=== PATIENT | male | born 1955 | race Caucasian/White ===

== ENCOUNTER 2019-12-04 07:49 | Outpatient (REF) | payer OTHER, SELFPAY | END 2019-12-04 07:50 | disposition home or self-care (01) | LOC: HO.LAB 07:49 | PROVIDERS: PCP Internal Medicine; Visit Provider Internal Medicine | DX: Z20.828 Contact with and (suspected) exposure to other viral communicable diseases (principal) | CPT/HCPCS: 87635 ==

== ENCOUNTER 2020-01-10 08:04 | Outpatient (REF) | payer OTHER, SELFPAY ==
[2020-01-10 11:37] LABS: Cholesterol 129 mg/dL; Glucose Fasting 110 mg/dL (60-99); HDL Cholesterol 38 mg/dL; LDL Cholesterol Calculated 78 mg/dl; Triglycerides 67 mg/dL
[2020-01-10 11:49] LABS: Estimated Average Glucose 131 mg/dL; Hemoglobin A1c % 6.2 %
[2020-01-10 11:50] LABS: Creatinine Urine 91.06 mg/dL; Microalbum/Creatinine Ratio Ur 6.5 ug/mg cr
== END 2020-01-10 08:05 | disposition home or self-care (01) ==
LOC: HO.HMGCLDS 08:04
PROVIDERS: PCP Internal Medicine; Visit Provider Internal Medicine
DX: Z20.828 Contact with and (suspected) exposure to other viral communicable diseases (principal); E11.9 Type 2 diabetes mellitus without complications
CPT/HCPCS: 80061; 82043; 82947; 83036; C9803; U0003

== ENCOUNTER → 2020-03-07 08:24 | Outpatient (BNVA) | payer OTHER, SELFPAY | PROVIDERS: PCP Internal Medicine; Visit Provider Orthopaedic Surgery | DX: G56.01 Carpal tunnel syndrome, right upper limb (principal) | CPT/HCPCS: 99202 ==

== ENCOUNTER 2020-03-16 08:27 | Day surgery (SDC) | payer OTHER, SELFPAY ==
[2020-03-15 09:42] VITALS: BMI 31.5
[2020-03-16] MEDS: Lidocaine HCl 2%/Epi 1:100,000 20 ML VIAL 10 ML INFILTRATI (09:16)
[2020-03-16 11:11] VITALS: BP 100/61; PULSE 56; RESP 18; TEMP 36.4; O2SAT 99
--- NOTE | 2020-03-16 11:15 | W.PM.OPN ---
Operative Note Operative Note Date of Service: 03/16/20 Narrative: Preop diagnosis: 1. Right Carpal tunnel syndrome Postop diagnosis: 1. Right Carpal tunnel syndrome Procedure: 1. Right Carpal tunnel release Surgeon: Leslie Simms MD Anesthesia: local block using 1% lidocaine with epinephrine Findings: Thickened transverse carpal ligament. EBL: Less than 5 mL Specimens: None Complications: None Disposition: Brought to recovery room in stable condition Plan: Follow-up for 7-10 days for wound check and suture removal Indications: The patient is 64 years old, with right carpal tunnel syndrome that has been unresponsive to nonoperative management. The risks and benefits of operative treatment including but not limited to risk of damage to blood vessels, nerves, tendons, infection, persistent pain, persistent symptoms, or possible need for additional surgery were discussed with the patient and the patient wishes to proceed with surgery. Procedure: Once consent was obtained a local block was performed using a combination of 1% lidocaine with epinephrine. The patient was then brought back to the operating suite and placed on the operative table in supine position. A tourniquet was applied to the proximal aspect of the right upper extremity and the limb was prepped and draped in a standard surgical fashion. Once assured that we had a good block, a 1.5 cm longitudinal incision was made centered over the right carpal tunnel. The incision was made through the skin to the subcutaneous tissues using a #15 blade. Dissection was made down to the level of the transverse carpal ligament with care being taken to protect the palmar cutaneous nerve. Once the transverse carpal ligament was clearly visualized, a longitudinal incision was made in the transverse carpal ligament 1st using a #15 blade, then using tenotomy scissors under direct visualization. Care was taken to look for and protect the motor branch of the median nerve when seen in this area. Once satisfied with our carpal tunnel release the wound was copiously irrigated with normal saline and hemostasis was obtained with a brief period of local pressure. The skin edges were reapproximated with some 5.0 nylon suture material and a sterile dressing was applied. The patient appears to have tolerated the procedure well and with no complications. All digits were well vascularized at the conclusion of the case.
[2020-03-16 11:41] VITALS: BP 116/68; PULSE 55; RESP 18; TEMP 36.1; O2SAT 99
--- NOTE | 2020-03-16 12:32 | MHC.SHP ---
Pre-Procedural Eval Section B Chief Complaint: carpal tunnel Allergies: Allergies Allergy/AdvReac Type Severity Reaction Status Date / Time succinylcholine Allergy Severe JAW Verified 03/07/20 08:41 [SUCCINYLCHOLINE] RIGIDITY lisinopril [LISINOPRIL] Allergy Intermediate COUGH Verified 03/07/20 08:41 Plan I have reviewed the history and physical and performed a pertinent physical examination on my patient. No changes have occurred unless specified.
== END 2020-03-16 12:25 | disposition home or self-care (01) ==
PROVIDERS: PCP Internal Medicine; Visit Provider Orthopaedic Surgery
PROC: (CPT 64721; principal; 2020-03-16 09:50)
DX: G56.01 Carpal tunnel syndrome, right upper limb (principal); I10 Essential (primary) hypertension; E11.9 Type 2 diabetes mellitus without complications; E02 Subclinical iodine-deficiency hypothyroidism; E78.5 Hyperlipidemia, unspecified; E66.9 Obesity, unspecified; Z68.31 Body mass index [BMI] 31.0-31.9, adult; Z79.84 Long term (current) use of oral hypoglycemic drugs; Z79.899 Other long term (current) drug therapy; Z88.8 Allergy status to other drugs, medicaments and biological substances; Z87.891 Personal history of nicotine dependence
CPT/HCPCS: 64721

== ENCOUNTER 2020-03-20 06:14 | Outpatient (REF) | payer OTHER, SELFPAY ==
[2020-03-20 11:10] LABS: MANUAL DIFF FLAG NO
[2020-03-20 11:16] LABS: Basophils Percent Auto 0.3 % (0-2); Eosinophils Absolute Auto 0.2 X10*3/uL (0.0-0.4); Eosinophils Percent Auto 2.1 % (0-4); Hematocrit 42.5 % (42-52); Hemoglobin 13.9 g/dl (14.0-18.0); Imm Gran Abs Auto 0.02 X10*3/uL (0.00-0.03); Imm Gran Pct Auto 0.3 % (0.0-0.4); Lymphocytes Absolute Auto 2.2 X10*3/uL (1.2-4.9); Mean Corpuscular HGB Conc 32.7 g/dl (31.0-36.0); Mean Corpuscular Hemoglobin 28.5 pg (27.0-33.0); Mean Corpuscular Volume 87.3 fL (80-98); Mean Platelet Volume 9.9 fL (9.4-12.4); Monocytes Absolute Auto 0.5 X10*3/uL (0.1-1.2); Monocytes Percent Auto 7.6 % (2-11); Neutrophils Absolute Auto 4.1 X10*3/uL (2.0-8.3); Neutrophils Percent Auto 58.7 % (45-73); Platelet Count 212 X10*3/uL (160-400); Red Blood Count 4.87 X10*6/uL (4.60-5.80); Red Cell Distribution Width 13.8 % (11.0-16.0); White Blood Count 7.1 X10*3/uL (4.8-10.8)
[2020-03-20 12:07] LABS: Alanine Aminotransferase 24 U/L (0-40); Albumin Level 4.5 g/dL (3.5-5.0); Alkaline Phosphatase 52 U/L (39-117); Anion Gap 15 (12-20); Aspartate Amino Transferase 24 U/L (5-37); Bilirubin Total 0.6 mg/dL (0.0-1.0); Blood Urea Nitrogen 23 mg/dL (9-16); Carbon Dioxide 26 mmol/L (22-29); Chloride 104 mmol/L (96-108); Cholesterol 143 mg/dL; Estimated Glomerular Filt Rate > 60; Glucose Fasting 97 mg/dL (60-99); HDL Cholesterol 42 mg/dL; LDL Cholesterol Calculated 83 mg/dl; Potassium 4.5 mmol/L (3.3-5.1); Sodium 140 mmol/L (135-145); Total Protein 7.1 g/dL (6.5-8.0); Triglycerides 92 mg/dL
[2020-03-20 12:13] LABS: Creatinine Urine 94.26 mg/dL; Microalbum/Creatinine Ratio Ur 6.3 ug/mg cr
[2020-03-20 12:31] LABS: Free T4 (Free Thyroxine) 0.92 ng/dL (0.71-1.85); Thyroid Stimulating Hormone 5.01 uIU/mL (0.32-4.0)
[2020-03-21 11:12] LABS: LDL Cholesterol Direct 90 mg/dL (<100)
== END 2020-03-20 06:15 | disposition home or self-care (01) ==
LOC: HO.HMGCLDS 06:14
PROVIDERS: PCP Internal Medicine; Visit Provider Internal Medicine Endocrinology, Diabetes & Metabolism
DX: E11.9 Type 2 diabetes mellitus without complications (principal); E03.9 Hypothyroidism, unspecified
CPT/HCPCS: 36415; 80053; 80061; 82043; 83721; 84439; 84443; 85025

== ENCOUNTER 2020-03-23 08:13 | Outpatient (REF) | payer OTHER, SELFPAY ==
[2020-03-23 12:06] LABS: Free T4 (Free Thyroxine) 0.86 ng/dL (0.71-1.85)
[2020-03-23 12:28] LABS: Vitamin B12 375 pg/mL (200-900)
== END 2020-03-23 08:14 | disposition home or self-care (01) ==
LOC: HO.HMGCLDS 08:13
PROVIDERS: PCP Internal Medicine; Visit Provider Internal Medicine Endocrinology, Diabetes & Metabolism
DX: E11.9 Type 2 diabetes mellitus without complications (principal); E03.8 Other specified hypothyroidism; E78.5 Hyperlipidemia, unspecified; I10 Essential (primary) hypertension; E66.9 Obesity, unspecified; Z79.84 Long term (current) use of oral hypoglycemic drugs; Z79.899 Other long term (current) drug therapy
CPT/HCPCS: 36415; 82607; 82947; 84439; 99212

== ENCOUNTER → 2020-03-27 14:22 | Outpatient (BNVA) | payer OTHER, SELFPAY | PROVIDERS: PCP Internal Medicine; Visit Provider Orthopaedic Surgery | DX: G56.01 Carpal tunnel syndrome, right upper limb (principal) | CPT/HCPCS: 99212 ==

== ENCOUNTER 2020-05-18 07:36 | Outpatient (REF) | payer OTHER, SELFPAY ==
[2020-05-18 11:53] LABS: Estimated Average Glucose 128 mg/dL; Hemoglobin A1c % 6.1 %
[2020-05-18 12:01] LABS: Cholesterol 142 mg/dL; HDL Cholesterol 35 mg/dL; LDL Cholesterol Calculated 91 mg/dl; Triglycerides 83 mg/dL
[2020-05-18 12:13] LABS: Thyroid Stimulating Hormone 3.88 uIU/mL (0.32-4.0)
== END 2020-05-18 07:37 | disposition home or self-care (01) ==
LOC: HO.HMGCLDS 07:36
PROVIDERS: PCP Internal Medicine; Visit Provider Internal Medicine
DX: E11.9 Type 2 diabetes mellitus without complications (principal); E03.9 Hypothyroidism, unspecified
CPT/HCPCS: 36415; 80061; 83036; 84443

== ENCOUNTER 2020-10-06 08:57 | Outpatient (REF) | payer OTHER, SELFPAY ==
[2020-10-06 11:52] LABS: Estimated Average Glucose 157 mg/dL; Hemoglobin A1c % 7.1 %
[2020-10-06 12:04] LABS: Cholesterol 156 mg/dL; Glucose Fasting 126 mg/dL (60-99); HDL Cholesterol 38 mg/dL; LDL Cholesterol Calculated 100 mg/dl; Triglycerides 90 mg/dL
== END 2020-10-06 08:58 | disposition home or self-care (01) ==
LOC: HO.HMGCLDS 08:57
PROVIDERS: PCP Internal Medicine; Visit Provider Internal Medicine
DX: E11.65 Type 2 diabetes mellitus with hyperglycemia (principal)
CPT/HCPCS: 36415; 80061; 82947; 83036

== ENCOUNTER → 2020-12-19 08:13 | Outpatient (BNVA) | payer OTHER, SELFPAY | PROVIDERS: PCP Internal Medicine; Visit Provider Nurse Practitioner Gerontology | DX: E11.65 Type 2 diabetes mellitus with hyperglycemia (principal); E78.5 Hyperlipidemia, unspecified; E66.9 Obesity, unspecified; E03.9 Hypothyroidism, unspecified; I10 Essential (primary) hypertension | CPT/HCPCS: 82947; 99212 ==

== ENCOUNTER 2021-02-05 07:40 | Outpatient (REF) | payer OTHER, SELFPAY ==
[2021-02-05 11:54] LABS: Cholesterol 132 mg/dL; Glucose Fasting 97 mg/dL (60-99); HDL Cholesterol 37 mg/dL; LDL Cholesterol Calculated 79 mg/dl; Triglycerides 81 mg/dL
[2021-02-05 11:57] LABS: Estimated Average Glucose 131 mg/dL; Hemoglobin A1c % 6.2 %
== END 2021-02-05 07:41 | disposition home or self-care (01) ==
LOC: HO.HMGCLDS 07:40
PROVIDERS: PCP Internal Medicine; Visit Provider Internal Medicine
DX: E11.9 Type 2 diabetes mellitus without complications (principal)
CPT/HCPCS: 36415; 80061; 82947; 83036

== ENCOUNTER 2021-03-30 08:07 | Outpatient (REF) | payer OTHER, SELFPAY ==
[2021-03-30 12:03] LABS: Thyroid Stimulating Hormone 4.65 uIU/mL (0.32-4.0)
[2021-03-30 12:04] LABS: Alanine Aminotransferase 38 U/L (0-40); Albumin Level 4.2 g/dL (3.5-5.0); Alkaline Phosphatase 46 U/L (39-117); Anion Gap 14 (12-20); Aspartate Amino Transferase 25 U/L (5-37); Blood Urea Nitrogen 19 mg/dL (9-16); Calcium 9.2 mg/dL (8.4-10.2); Carbon Dioxide 24 mmol/L (22-29); Chloride 105 mmol/L (96-108); Cholesterol 124 mg/dL; Estimated Glomerular Filt Rate > 60; Glucose Fasting 93 mg/dL (60-99); HDL Cholesterol 32 mg/dL; LDL Cholesterol Calculated 75 mg/dl; Potassium 4.2 mmol/L (3.3-5.1); Sodium 139 mmol/L (135-145); Total Protein 6.8 g/dL (6.5-8.0); Triglycerides 87 mg/dL
[2021-03-30 12:34] LABS: Creatinine Urine 132.33 mg/dL; Microalbum/Creatinine Ratio Ur 6.8 ug/mg cr
[2021-03-31 14:56] LABS: LDL Cholesterol Direct 73 mg/dL (<100)
== END 2021-03-30 08:08 | disposition home or self-care (01) ==
LOC: HO.HMGCLDS 08:07
PROVIDERS: Visit Provider Nurse Practitioner Gerontology
DX: E11.65 Type 2 diabetes mellitus with hyperglycemia (principal)
CPT/HCPCS: 36415; 80053; 80061; 82043; 83721; 84439; 84443

== ENCOUNTER → 2021-04-03 07:26 | Outpatient (BNVA) | payer OTHER, SELFPAY | PROVIDERS: PCP Internal Medicine; Visit Provider Nurse Practitioner Gerontology | DX: E11.65 Type 2 diabetes mellitus with hyperglycemia (principal); E78.5 Hyperlipidemia, unspecified; I10 Essential (primary) hypertension; E66.9 Obesity, unspecified; E03.9 Hypothyroidism, unspecified; Z68.33 Body mass index [BMI] 33.0-33.9, adult | CPT/HCPCS: 82947; 99212 ==

== ENCOUNTER 2021-09-21 06:32 | Outpatient (REF) | payer OTHER, SELFPAY ==
[2021-09-21 12:20] LABS: Estimated Average Glucose 123 mg/dL; Hemoglobin A1c % 5.9 %
[2021-09-21 12:35] LABS: Cholesterol 122 mg/dL; Glucose Fasting 98 mg/dL (60-99); HDL Cholesterol 37 mg/dL; LDL Cholesterol Calculated 68 mg/dl; Triglycerides 88 mg/dL
[2021-09-21 12:37] LABS: Free T4 (Free Thyroxine) 0.91 ng/dL (0.71-1.85)
[2021-09-21 12:43] LABS: Thyroid Stimulating Hormone 3.78 uIU/mL (0.32-4.0)
[2021-09-22 17:02] LABS: LDL Cholesterol Direct 67 mg/dL (<100)
== END 2021-09-21 06:33 | disposition home or self-care (01) ==
LOC: HO.HMGCLDS 06:32
PROVIDERS: PCP Internal Medicine; Visit Provider Nurse Practitioner Gerontology
DX: Z13.9 Encounter for screening, unspecified (principal); E11.65 Type 2 diabetes mellitus with hyperglycemia
CPT/HCPCS: 36415; 80061; 82947; 83036; 83721; 84439; 84443

== ENCOUNTER 2022-02-06 09:12 | Outpatient (REF) | payer OTHER, SELFPAY ==
[2022-02-06 11:36] LABS: Cholesterol 112 mg/dL; Glucose Fasting 115 mg/dL (60-99); HDL Cholesterol 34 mg/dL; LDL Cholesterol Calculated 58 mg/dl; Triglycerides 101 mg/dL
[2022-02-06 11:52] LABS: Estimated Average Glucose 128 mg/dL; Hemoglobin A1c % 6.1 %
== END 2022-02-06 09:13 | disposition home or self-care (01) ==
LOC: HO.HMGCLDS 09:12
PROVIDERS: PCP Internal Medicine; Visit Provider Internal Medicine
DX: E78.5 Hyperlipidemia, unspecified (principal); E11.65 Type 2 diabetes mellitus with hyperglycemia
CPT/HCPCS: 36415; 80061; 82947; 83036

== ENCOUNTER 2022-04-04 07:12 | Outpatient (REF) | payer OTHER, SELFPAY ==
[2022-04-04 11:19] LABS: MANUAL DIFF FLAG NO
[2022-04-04 11:31] LABS: Basophils Percent Auto 0.3 % (0-2); Eosinophils Absolute Auto 0.1 X10*3/uL (0.0-0.4); Eosinophils Percent Auto 1.4 % (0-4); Hematocrit 41.1 % (42.0-52.0); Hemoglobin 13.2 g/dl (14.0-18.0); Imm Gran Abs Auto 0.02 X10*3/uL (0.00-0.03); Imm Gran Pct Auto 0.3 % (0.0-0.4); Lymphocytes Percent Auto 31.1 % (20-40); Mean Corpuscular HGB Conc 32.1 g/dl (31.0-36.0); Mean Corpuscular Hemoglobin 26.8 pg (27.0-33.0); Mean Corpuscular Volume 83.5 fL (80.0-98.0); Mean Platelet Volume 9.3 fL (9.4-12.4); Monocytes Absolute Auto 0.5 X10*3/uL (0.1-1.2); Neutrophils Absolute Auto 3.7 x10*3/uL (2.0-8.3); Neutrophils Percent Auto 58.9 % (45-73); Platelet Count 239 X10*3/uL (160-400); Red Blood Count 4.92 X10*6/uL (4.60-5.80); Red Cell Distribution Width 14.2 % (11.0-16.0); White Blood Count 6.3 X10*3/uL (4.8-10.8)
[2022-04-04 11:46] LABS: Estimated Average Glucose 140 mg/dL; Hemoglobin A1c % 6.5 %
[2022-04-04 11:51] LABS: Alanine Aminotransferase 17 U/L (0-40); Alkaline Phosphatase 52 U/L (39-117); Anion Gap 14 (12-20); Aspartate Amino Transferase 19 U/L (5-37); Bilirubin Total 0.5 mg/dL (0.0-1.0); Blood Urea Nitrogen 19 mg/dL (9-16); Calcium 9.1 mg/dL (8.4-10.2); Carbon Dioxide 24 mmol/L (22-29); Chloride 108 mmol/L (96-108); Cholesterol 115 mg/dL; Estimated Glomerular Filt Rate 57; Glucose Fasting 120 mg/dL (60-99); HDL Cholesterol 37 mg/dL; LDL Cholesterol Calculated 60 mg/dl; Potassium 4.5 mmol/L (3.3-5.1); Sodium 141 mmol/L (135-145); Total Protein 6.8 g/dL (6.5-8.0); Triglycerides 92 mg/dL
[2022-04-04 12:11] LABS: Prostate Specific Antigen Scr 1.52 ng/mL (<0.05-4.0); Thyroid Stimulating Hormone 4.14 uIU/mL (0.32-4.0)
[2022-04-04 12:46] LABS: Creatinine Urine 124.03 mg/dL; Microalbum/Creatinine Ratio Ur 20.9 ug/mg cr
== END 2022-04-04 07:13 | disposition home or self-care (01) ==
LOC: HO.HMGCLDS 07:12
PROVIDERS: PCP Internal Medicine; Visit Provider Internal Medicine
DX: Z00.00 Encounter for general adult medical examination without abnormal findings (principal); D64.9 Anemia, unspecified; N28.9 Disorder of kidney and ureter, unspecified; E11.65 Type 2 diabetes mellitus with hyperglycemia; E11.69 Type 2 diabetes mellitus with other specified complication; E66.01 Morbid (severe) obesity due to excess calories; E03.9 Hypothyroidism, unspecified; Z12.5 Encounter for screening for malignant neoplasm of prostate
CPT/HCPCS: 36415; 80053; 80061; 82043; 83036; 84153; 84443; 85025

== ENCOUNTER 2022-09-21 07:10 | Outpatient (REF) | payer OTHER, SELFPAY ==
[2022-09-21 07:50] LABS: Estimated Average Glucose 117 mg/dL; Hemoglobin A1c % 5.7 %
[2022-09-21 08:54] LABS: Cholesterol 108 mg/dL; Glucose Fasting 104 mg/dL (60-99); HDL Cholesterol 39 mg/dL; LDL Cholesterol Calculated 58 mg/dl; Triglycerides 58 mg/dL
== END 2022-09-21 07:11 | disposition home or self-care (01) ==
LOC: HO.LAB 07:10
PROVIDERS: PCP Internal Medicine; Visit Provider Internal Medicine
DX: E78.5 Hyperlipidemia, unspecified (principal); R73.9 Hyperglycemia, unspecified
CPT/HCPCS: 36415; 80061; 82947; 83036

== ENCOUNTER 2022-09-25 11:27 | Outpatient (AMB) | payer OTHER, SELFPAY ==
--- NOTE | 2022-09-25 11:29 | A.OFFPC_ITS ---
Vital Signs 09/25/22 11:31 Height 5 ft 10 in Weight 212 lb 4 oz BMI 30.5 BP 110/60 Blood Pressure Location Lt brachial Position Sitting Pulse 74 Pulse Source Pulse Oximeter Pulse Oximetry (%) 96 Oxygen Delivery Method Room Air Intake Visit Reasons: 4 month f/u Intake Note: Patient is here to follow up on DM, CAD, HTN, Dyslipidemia. Academic Services Professional Required: No Supervisor [employer]: Not Required per policy Accompanied by: Self / Same As Patient Allergies succinylcholine [SUCCINYLCHOLINE] Allergy (Severe, Verified 09/25/22 11:30) JAW RIGIDITY lisinopril [LISINOPRIL] Allergy (Intermediate, Verified 09/25/22 11:30) COUGH Medication List - Last Reconciled 09/25/22 by Amaury Burk MD aspirin (Adult Low Dose Aspirin) 81 mg PO DAILY blood sugar diagnostic (FreeStyle Lite Strips) As directed two times a day blood-glucose meter (FreeStyle [place] Lite kit) As directed carvedilol 12.5 mg PO BID lancets (FreeStyle Lancets) As directed twice a day metformin 1,000 mg (2 x 500 mg) PO BID 90 days rosuvastatin 40 mg PO QPM 90 days sacubitril-valsartan 24-26 mg 1 tab PO BID sitagliptin phosphate (Januvia) 100 mg PO DAILY Tobacco use date assessed: 09/25/22 Fall risk assessment: No Falls in past year Last assessed Fall Risk: 09/25/22 Dental Screening Dental Screen Date: 09/25/22 Did you have a dental visit in the last 12 months?: Yes Did you have a dental problem in the last 6 months where you did not have access to dental care?: No Was dental information given to patient?: Patient has dentist HPI 4 month f/u HPI Details DM hyperlipidemia and CAD; doing well and labs fine [facility] Medical History (Updated 04/09/22 @ 14:13 by Amaury Burk MD) CAD (coronary artery disease) Diabetes mellitus Dyslipidemia History of [place] (myocardial infarction) Hypertension Obesity (BMI 30-39.9) Secondary diabetes mellitus with hyperlipidemia Subclinical hypothyroidism Type 2 diabetes mellitus with obesity Surgical History H/O thumb surgery History of appendectomy History of carpal tunnel surgery History of elbow surgery History of implantable cardiac defibrillator (ICD) History of surgery History of vasectomy Family History Father CAD (coronary artery disease) Diabetes Mother CAD (coronary artery disease) Brother CAD (coronary artery disease) S/P CABG x 2 Social History Housing: House Alcohol intake: current Alcohol intake frequency: a few times a month Patient Tobacco Use Status: Former Tobacco user e-Cigarette/Vaping Use: Never Used Second Hand Smoke Exposure: No Substance Use Type: Former Substance User and Marijuana service: Yes Current occupational status: retired Current occupation: right handed Current occupational exposures/hazards: No Cognitive needs: No Hearing needs: No Vision needs: Yes Questionnaire Thrive Questionnaire Date Thrive assessed: 04/09/22 TOMASZ-7 AMB Questionnaire TOMASZ-7 Date TOMASZ - 7 assessed: 04/09/22 Source: Developed by Drs. Martir Elliott, Alice Clifford, Alvin Zhang and colleagues, with an educational andrade from [employer]. Review of Systems Const Denies chills, Denies headache(s) and Denies weight loss ENT Denies headache(s) Card Denies chest pain, Denies syncope, Denies irregular heart rhythm and Denies dyspnea Resp Denies chest congestion, Denies cough and Denies dyspnea GI Denies abdominal pain, Denies change in stool character, Denies nausea and Denies vomiting Musc Denies deformity and Denies joint swelling Neuro Denies syncope and Denies headache(s) Physical exam (Primary Care) Vital Signs: Last Vital Signs Pulse 74 09/25/22 11:31 BP 110/60 09/25/22 11:31 Pulse Ox 96 09/25/22 11:31 Oxygen Delivery Method Room Air 09/25/22 11:31 BMI result Body Mass Index 30.5 Tobacco/Smoking Status: Tobacco use Status Tobacco use date assessed 09/25/22 09/25/22 11:36 Patient Tobacco Use Status Former Tobacco user 09/25/22 11:29 e-Cigarette/Vaping Use Never Used 09/25/22 11:29 Thrive Assessment: Date of Thrive Assessment Date Thrive assessed 04/09/22 09/25/22 11:29 Const General: cooperative, comfortable and no acute distress Resp Effort & Inspection: normal respiratory effort Auscultation: clear to auscultation bilaterally Percussion: percussion normal Cardio Jugular venous distension: no JVD Rate: regular rate Rhythm: regular rhythm GI Inspection: Yes normal to inspection Assessment and Plan Assessment & Plan (1) CAD (coronary artery disease): Code(s): I25.10 - Atherosclerotic heart disease of [place] coronary artery without angina pectoris Plan: stable; as per cardiology (2) Dyslipidemia: Code(s): E78.5 - Hyperlipidemia, unspecified Plan: stable; same rx (3) Type 2 diabetes mellitus with obesity: Code(s): E11.69 - Type 2 diabetes mellitus with other specified complication; E66.9 - Obesity, unspecified Plan: stable; do labs Orders: Orders Comprehensive [place]. Panel Fast Today N28.9 - Disorder of kidney and ureter, unspecified Lipid Panel Today E78.5 - Hyperlipidemia, unspecified Prostate Specific Antigen Scr Today Z00.00 - Encounter for general adult medical examination without abnormal findings Complete Blood Count Auto Diff Today D64.9 - Anemia, unspecified Coding Level of Care Code Est Pt Level 4 (14051) Diagnoses CAD (coronary artery disease) I25.10 Dyslipidemia E78.5 Type 2 diabetes mellitus with obesity E11.69; E66.9
[2022-09-25 11:31] VITALS: BP 110/60; PULSE 74; O2SAT 96; BMI 30.5
== END 2022-09-25 11:45 | disposition home or self-care (01) ==
PROVIDERS: PCP Internal Medicine; Visit Provider Internal Medicine
DX: I25.10 Atherosclerotic heart disease of native coronary artery without angina pectoris (principal); E11.69 Type 2 diabetes mellitus with other specified complication; Z68.30 Body mass index [BMI] 30.0-30.9, adult; E78.5 Hyperlipidemia, unspecified; E66.9 Obesity, unspecified
CPT/HCPCS: 99214

== ENCOUNTER 2022-12-09 09:26 | Outpatient (AMB) | payer MEDICARE, OTHER, SELFPAY ==
[2022-12-09 10:37] VITALS: BP 110/70; PULSE 81; TEMP 36.7; O2SAT 97; BMI 31.3
--- NOTE | 2022-12-09 10:37 | AM.OFFWIN_ITS ---
Intake Vital Signs 12/09/22 10:37 Height 5 ft 10 in Weight 218 lb BMI 31.3 BP 110/70 Blood Pressure Location Rt brachial Position Sitting Pulse 81 Pulse Source Pulse Oximeter Temp 98.1 F Temp Source Temporal Artery Scan Pulse Oximetry (%) 97 Oxygen Delivery Method Room Air Intake Visit Reasons: EP, tic bite on back [phone] Intake Note: pt is here today for tick bite on back Patient Tobacco Use Status: Former Tobacco user Allergies succinylcholine [SUCCINYLCHOLINE] Allergy (Severe, Verified 12/09/22 11:05) JAW RIGIDITY lisinopril [LISINOPRIL] Allergy (Intermediate, Verified 12/09/22 11:05) COUGH Medication List - Last Reconciled 12/09/22 by Brain Ag MD aspirin (Adult Low Dose Aspirin) 81 mg PO DAILY blood sugar diagnostic (FreeStyle Lite Strips) As directed two times a day blood-glucose meter (FreeStyle [place] Lite kit) As directed carvedilol 12.5 mg PO BID lancets (FreeStyle Lancets) As directed twice a day metformin 1,000 mg (2 x 500 mg) PO BID 90 days rosuvastatin 40 mg PO QPM 90 days sacubitril-valsartan 24-26 mg 1 tab PO BID sitagliptin phosphate (Januvia) 100 mg PO DAILY Do you need a note to return to daycare/school/sports/work: No HPI EP, tic bite on back [phone] HPI Details 67-year-old male presents to the office for a sick visit. 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 Patient had a tick bite in the right lower back area. He brings a tick along with him. [facility] Medical History (Updated 12/09/22 @ 11:07 by Brain Ag MD) Type 2 diabetes mellitus with obesity CAD (coronary artery disease) History of [place] (myocardial infarction) Secondary diabetes mellitus with hyperlipidemia Subclinical hypothyroidism Obesity (BMI 30-39.9) Hypertension Dyslipidemia Diabetes mellitus Surgical History H/O thumb surgery History of appendectomy History of carpal tunnel surgery History of elbow surgery History of implantable cardiac defibrillator (ICD) History of surgery History of vasectomy Family History Father CAD (coronary artery disease) Diabetes Mother CAD (coronary artery disease) Brother CAD (coronary artery disease) S/P CABG x 2 Social History Housing: House Alcohol intake: current Alcohol intake frequency: a few times a month Patient Tobacco Use Status: Former Tobacco user e-Cigarette/Vaping Use: Never Used Second Hand Smoke Exposure: No Substance Use Type: Former Substance User and Marijuana service: Yes Current occupational status: retired Current occupation: right handed Current occupational exposures/hazards: No Cognitive needs: No Hearing needs: No Vision needs: Yes Physical Exam Vital Signs: Last Vital Signs Temp 98.1 F 12/09/22 10:37 Pulse 81 12/09/22 10:37 BP 110/70 12/09/22 10:37 Pulse Ox 97 12/09/22 10:37 Oxygen Delivery Method Room Air 12/09/22 10:37 BMI result Body Mass Index 31.3 Skin Other: Right lower back: small erythematous area at the site of the bite. Assessment & Plan Assessment & Plan (1) Tick bite of abdomen: Code(s): S30.861A - Insect bite (nonvenomous) of abdominal wall, initial encounter; W57.XXXA - Bitten or stung by nonvenomous insect and other nonvenomous arthropods, initial encounter Plan: Signs and symptoms of Lyme disease explained. Single dose of doxycycline pr escribed. Lyme titer in 3 weeks. Coding Level of Care Code Est Pt Level 3 (45742) Diagnoses Tick bite of abdomen S30.861A; W57.XXXA
== END 2022-12-09 11:07 | disposition home or self-care (01) ==
PROVIDERS: PCP Internal Medicine; Visit Provider Internal Medicine
DX: S30.861A Insect bite (nonvenomous) of abdominal wall, initial encounter (principal); W57.XXXA Bitten or stung by nonvenomous insect and other nonvenomous arthropods, initial encounter
CPT/HCPCS: 99213

== ENCOUNTER 2022-12-30 08:05 | Outpatient (REF) | payer MEDICARE, OTHER, SELFPAY ==
[2022-12-31 08:54] LABS: Lyme Abs Screen <0.90 index
== END 2022-12-30 08:06 | disposition home or self-care (01) ==
LOC: HO.HMGCLDS 08:05
PROVIDERS: PCP Internal Medicine; Visit Provider Internal Medicine
DX: S30.861A Insect bite (nonvenomous) of abdominal wall, initial encounter (principal); W57.XXXA Bitten or stung by nonvenomous insect and other nonvenomous arthropods, initial encounter; Y93.9 Activity, unspecified; Y92.9 Unspecified place or not applicable; Y99.9 Unspecified external cause status
CPT/HCPCS: 36415; 86617; 86618

== ENCOUNTER 2023-01-01 08:45 | Outpatient (AMB) | payer MEDICARE, OTHER, SELFPAY ==
[2023-01-01 08:49] VITALS: BP 106/62; PULSE 67; O2SAT 98; BMI 31.9
--- NOTE | 2023-01-01 08:49 | MHC.PC.OV ---
Vital Signs 01/01/23 08:49 Height 5 ft 10 in Weight 222 lb BMI 31.9 BP 106/62 Blood Pressure Location Lt brachial Position Sitting Pulse 67 Pulse Source Pulse Oximeter Pulse Oximetry (%) 98 Oxygen Delivery Method Room Air Intake Visit Reasons: Cyst/ Bump top of [place] Police Crime Scene Technician: Not Required per policy Accompanied by: Self / Same As Patient Allergies succinylcholine [SUCCINYLCHOLINE] Allergy (Severe, Verified 01/01/23 08:50) JAW RIGIDITY lisinopril [LISINOPRIL] Allergy (Intermediate, Verified 01/01/23 08:50) COUGH Medication List - Last Reconciled 01/01/23 by Amaury Burk MD aspirin (Adult Low Dose Aspirin) 81 mg PO DAILY blood sugar diagnostic (FreeStyle Lite Strips) As directed two times a day blood-glucose meter (FreeStyle [place] Lite kit) As directed carvedilol 12.5 mg PO BID doxycycline hyclate 100 mg PO BID 1 day lancets (FreeStyle Lancets) As directed twice a day metformin 1,000 mg (2 x 500 mg) PO BID 90 days rosuvastatin 40 mg PO QPM 90 days sacubitril-valsartan 24-26 mg 1 tab PO BID sitagliptin phosphate (Januvia) 100 mg PO DAILY Tobacco use date assessed: 09/25/22 Fall risk assessment: No Falls in past year Last assessed Fall Risk: 01/01/23 Dental Screening Dental Screen Date: 01/22/23 Did you have a dental visit in the last 12 months?: Yes Did you have a dental problem in the last 6 months where you did not have access to dental care?: No Was dental information given to patient?: Patient has dentist HPI Cyst/ Bump top of [place] HPI Details rash on buttocks for a month [facility] Medical History (Updated 12/09/22 @ 11:07 by Brain Ag MD) Type 2 diabetes mellitus with obesity CAD (coronary artery disease) History of [place] (myocardial infarction) Secondary diabetes mellitus with hyperlipidemia Subclinical hypothyroidism Obesity (BMI 30-39.9) Hypertension Dyslipidemia Diabetes mellitus Surgical History H/O thumb surgery History of appendectomy History of carpal tunnel surgery History of elbow surgery History of implantable cardiac defibrillator (ICD) History of surgery History of vasectomy Family History Father CAD (coronary artery disease) Diabetes Mother CAD (coronary artery disease) Brother CAD (coronary artery disease) S/P CABG x 2 Social History Housing: House Alcohol intake: current Alcohol intake frequency: a few times a month Patient Tobacco Use Status: Former Tobacco user e-Cigarette/Vaping Use: Never Used Second Hand Smoke Exposure: No Substance Use Type: Former Substance User and Marijuana service: Yes Current occupational status: retired Current occupation: right handed Current occupational exposures/hazards: No Cognitive needs: No Hearing needs: No Vision needs: Yes Questionnaire Thrive Questionnaire Date Thrive assessed: 04/09/22 TOMASZ-7 AMB Questionnaire TOMASZ-7 Date TOMASZ - 7 assessed: 04/09/22 Source: Developed by Drs. Martir Elliott, Alice Clifford, Alvin Zhang and colleagues, with an educational andrade from [employer]. Review of Systems Const Denies chills, Denies headache(s) and Denies weight loss ENT Denies headache(s) Card Denies chest pain, Denies syncope, Denies irregular heart rhythm and Denies dyspnea Resp Denies chest congestion, Denies cough and Denies dyspnea GI Denies abdominal pain, Denies change in stool character, Denies nausea and Denies vomiting Musc Denies deformity and Denies joint swelling Neuro Denies syncope and Denies headache(s) Physical exam (Primary Care) Vital Signs: Last Vital Signs Pulse 67 01/01/23 08:49 BP 106/62 01/01/23 08:49 Pulse Ox 98 01/01/23 08:49 Oxygen Delivery Method Room Air 01/01/23 08:49 BMI result Body Mass Index 31.9 Tobacco/Smoking Status: Tobacco use Status Tobacco use date assessed 09/25/22 01/01/23 08:54 Patient Tobacco Use Status Former Tobacco user 01/01/23 08:54 e-Cigarette/Vaping Use Never Used 01/01/23 08:54 Thrive Assessment: Date of Thrive Assessment Date Thrive assessed 04/09/22 01/01/23 08:54 Const General: cooperative, comfortable and no acute distress Resp Effort & Inspection: normal respiratory effort Auscultation: clear to auscultation bilaterally Percussion: percussion normal Cardio Jugular venous distension: no JVD Rate: regular rate Rhythm: regular rhythm GI Inspection: Yes normal to inspection Skin Other: tinea infection in gluteal crease Assessment and Plan Assessment & Plan (1) Tinea corporis: Code(s): B35.4 - Tinea corporis Plan: rx sent Medications: New clotrimazole-betamethasone 1-0.05 % 1 appl topical BID 45 grams 0RF 2 weeks ciprofloxacin HCl (Cipro) 250 mg PO BID 10 tabs 0RF Coding Level of Care Code Est Pt Level 3 (69055) Diagnoses Tinea corporis B35.4
== END 2023-01-01 09:02 | disposition home or self-care (01) ==
PROVIDERS: PCP Internal Medicine; Visit Provider Internal Medicine
DX: B35.4 Tinea corporis (principal)
CPT/HCPCS: 99213

== ENCOUNTER 2023-02-05 08:39 | Outpatient (REF) | payer MEDICARE, OTHER, SELFPAY ==
[2023-02-05 11:30] LABS: MANUAL DIFF FLAG NO
[2023-02-05 11:35] LABS: Basophils Percent Auto 0.5 % (0-2); Eosinophils Absolute Auto 0.2 X10*3/uL (0.0-0.4); Eosinophils Percent Auto 3.1 % (0-4); Hematocrit 44.2 % (42.0-52.0); Hemoglobin 14.6 g/dl (14.0-18.0); Imm Gran Abs Auto 0.02 X10*3/uL (0.00-0.03); Imm Gran Pct Auto 0.3 % (0.0-0.4); Lymphocytes Absolute Auto 1.8 X10*3/uL (1.2-4.9); Lymphocytes Percent Auto 27.8 % (20-40); Mean Corpuscular Hemoglobin 28.5 pg (27.0-33.0); Mean Corpuscular Volume 86.2 fL (80.0-98.0); Mean Platelet Volume 9.7 fL (9.4-12.4); Monocytes Absolute Auto 0.6 X10*3/uL (0.1-1.2); Monocytes Percent Auto 8.9 % (2-11); Neutrophils Absolute Auto 3.8 x10*3/uL (2.0-8.3); Neutrophils Percent Auto 59.4 % (45-73); Platelet Count 211 X10*3/uL (160-400); Red Blood Count 5.13 X10*6/uL (4.60-5.80); Red Cell Distribution Width 14.6 % (11.0-16.0); White Blood Count 6.4 X10*3/uL (4.8-10.8)
[2023-02-05 12:06] LABS: Alanine Aminotransferase 14 U/L (0-40); Albumin Level 4.3 g/dL (3.5-5.0); Alkaline Phosphatase 44 U/L (39-117); Anion Gap 14 (12-20); Aspartate Amino Transferase 17 U/L (5-37); Bilirubin Total 0.5 mg/dL (0.0-1.0); Blood Urea Nitrogen 22 mg/dL (9-16); Calcium 9.6 mg/dL (8.4-10.2); Carbon Dioxide 26 mmol/L (22-29); Chloride 106 mmol/L (96-108); Cholesterol 114 mg/dL (<200); Estimated Glomerular Filt Rate 51; Glucose Fasting 96 mg/dL (60-99); HDL Cholesterol 38 mg/dL (>40); LDL Cholesterol Calculated 62 mg/dL (<100); Potassium 4.7 mmol/L (3.3-5.1); Sodium 141 mmol/L (135-145); Total Protein 7.4 g/dL (6.5-8.0); Triglycerides 74 mg/dL (<150)
[2023-02-05 12:21] LABS: Prostate Specific Antigen Scr 1.33 ng/mL (<0.05-4.0)
== END 2023-02-05 08:40 | disposition home or self-care (01) ==
LOC: HO.HMGCLDS 08:39
PROVIDERS: PCP Internal Medicine; Visit Provider Internal Medicine
DX: Z00.00 Encounter for general adult medical examination without abnormal findings (principal); Z12.5 Encounter for screening for malignant neoplasm of prostate; N28.9 Disorder of kidney and ureter, unspecified; E78.5 Hyperlipidemia, unspecified; D64.9 Anemia, unspecified
CPT/HCPCS: 36415; 80053; 80061; 84153; 85025

== ENCOUNTER 2023-02-24 10:29 | Outpatient (AMB) | payer MEDICARE, OTHER, SELFPAY ==
--- NOTE | 2023-02-24 10:43 | MHC.PC.OV ---
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 Accompanied by: Self / Same As Patient Allergies succinylcholine [SUCCINYLCHOLINE] Allergy (Severe, Verified 01/01/23 08:50) JAW RIGIDITY lisinopril [LISINOPRIL] Allergy (Intermediate, Verified 01/01/23 08:50) COUGH Medication List - Last Reconciled 02/24/23 by Amaury Burk MD aspirin (Adult Low Dose Aspirin) 81 mg PO DAILY blood sugar diagnostic (FreeStyle Lite Strips) As directed two times a day blood-glucose meter (FreeStyle [place] Lite kit) As directed carvedilol 12.5 mg PO BID ciprofloxacin HCl (Cipro) 250 mg PO BID clotrimazole-betamethasone 1-0.05 % 1 appl topical BID 2 weeks doxycycline hyclate 100 mg PO BID 1 day lancets (FreeStyle Lancets) As directed twice a day metformin 1,000 mg (2 x 500 mg) PO BID 90 days rosuvastatin 40 mg PO QPM 90 days sacubitril-valsartan 24-26 mg 1 tab PO BID sitagliptin phosphate (Januvia) 100 mg PO DAILY Tobacco use date assessed: 09/25/22 Fall risk assessment: No Falls in past year Last assessed Fall Risk: 02/24/23 Dental Screening Dental Screen Date: 02/24/23 Did you have a dental visit in the last 12 months?: Yes Did you have a dental problem in the last 6 months where you did not have access to dental care?: No Was dental information given to patient?: Patient has dentist HPI annual exam HPI Details DM hyperlipidemia and CAD; stable on rx [facility] Medical History (Updated 12/09/22 @ 11:07 by Brain Ag MD) Type 2 diabetes mellitus with obesity CAD (coronary artery disease) History of [place] (myocardial infarction) Secondary diabetes mellitus with hyperlipidemia Subclinical hypothyroidism Obesity (BMI 30-39.9) Hypertension Dyslipidemia Diabetes mellitus Surgical History H/O thumb surgery History of appendectomy History of carpal tunnel surgery History of elbow surgery History of implantable cardiac defibrillator (ICD) History of surgery History of vasectomy Family History Father CAD (coronary artery disease) Diabetes Mother CAD (coronary artery disease) Brother CAD (coronary artery disease) S/P CABG x 2 Social History Housing: House Alcohol intake: current Alcohol intake frequency: a few times a month Patient Tobacco Use Status: Former Tobacco user e-Cigarette/Vaping Use: Never Used Second Hand Smoke Exposure: No Substance Use Type: Former Substance User and Marijuana service: Yes Current occupational status: retired Current occupation: right handed Current occupational exposures/hazards: No Cognitive needs: No Hearing needs: No Vision needs: Yes Questionnaire PHQ-9 Over the last 2 weeks, how often have you been bothered by any of the following problems? 1. Little interest or pleasure in doing things: not at all 2. Feeling down, depressed, or hopeless: not at all 3. Trouble falling or staying asleep, or sleeping too much: not at all 4. Feeling tired or having little energy: not at all 5. Poor appetite or overeating: not at all 6. Feeling bad about yourself - or that you are a failure or have let yourself or your family down: not at all 7. Trouble concentrating on things, such as reading the newspaper or watching television: not at all 8. Moving or speaking so slowly that other people could have noticed. Or the opposite - being so fidgety or restless that you have been moving around a lot more than usual: not at all 9. Thoughts that you would be better off or of hurting yourself in some way: not at all Total score: 0 Depression Screening Interpretation: Negative Depression Screening Done: Yes 90056 - PHQ-9 Billing: Yes Source: Developed by Drs. Martir Elliott, Alice Clifford, Alvin Zhang and colleagues, with an educational andrade from [employer]. Thrive Questionnaire Date Thrive assessed: 02/24/23 I am a: Patient What is your living situation today?: I have a steady place to live Within the past 12 months, did the food you bought not last and you didn't have the money to get more?: Never true Within the past 12 months, did you worry whether your food would run out before you got money to buy more?: Never true Do you have trouble paying for medicines?: No Do you have trouble getting transportation to medical appointments?: No Do you have trouble paying your heating and electricity bill?: No Do you have trouble taking care of your child, family member or friend?: No Do you have trouble with day-to-day activities such as bathing, preparing meals, shopping, managing finances, etc.?: No Are you currently unemployed and looking for a job?: No Are you interested in more education?: No Please select the resources that you would like help with: None Currently or been in a relationship where the following occur: no concerns reported AUDIT C Alcohol Use Questionnaire (AUDIT-C) 1. How often do you have a drink containing alcohol?: 2-3 times a week 2. How many drinks containing alcohol do you have on a typical day when you are drinking?: 1 or 2 3. How often do you have six or more drinks on one occasion?: Never Total Score: 3 Score Reviewed/Action Taken: Yes TOMASZ-7 AMB Questionnaire TOMASZ-7 Date TOMASZ - 7 assessed: 02/24/23 Feeling nervous, anxious, or on edge: 0 = Not at all Not being able to stop or control worryin = Not at all Worrying too much about different things: 0 = Not at all Trouble relaxin = Not at all Being so restless that it is hard to sit still: 0 = Not at all Becoming easily annoyed or irritable: 0 = Not at all Feeling afraid as if something awful might happen: 0 = Not at all Total TOMASZ-7 score (0-4 normal; 5-9 mild; 10-14 moderate; 15-21 severe): 0 Source: Developed by Drs. Martir Elliott, Alice Clifford, Alvin Zhang and colleagues, with an educational andrade from [employer]. TOMASZ-7 Assessment Billing TOMASZ-7 Assessment Tool: TOMASZ-7 Assessment 68434 Review of Systems Const Denies chills, Denies fatigue, Denies headache(s) and Denies weight loss Eyes Denies change in vision, Denies diplopia and Denies eye pain ENT Denies vertigo, Denies dizziness, Denies headache(s) and Denies nasal discharge Card Denies chest pain, Denies rapid heart rate and Denies dyspnea on exertion Resp Denies chest congestion, Denies cough, Denies pain with cough and Denies dyspnea on exertion GI Denies abdominal pain, Denies hematochezia and Denies change in bowel habits Musc Denies myalgias, Denies arthralgias and Denies joint swelling Skin/Breast Denies lesions and Denies unusual bruising Neuro Denies vertigo, Denies dizziness, Denies headache(s) and Denies focal weakness Endo Denies fatigue Physical exam (Primary Care) Vital Signs: Last Vital Signs Pulse 87 02/24/23 10:45 BP 98/60 02/24/23 10:45 Pulse Ox 98 02/24/23 10:45 Oxygen Delivery Method Room Air 02/24/23 10:45 BMI result Body Mass Index 33.7 Tobacco/Smoking Status: Tobacco use Status Tobacco use date assessed 09/25/22 02/24/23 10:50 Patient Tobacco Use Status Former Tobacco user 02/24/23 10:50 e-Cigarette/Vaping Use Never Used 02/24/23 10:50 PHQ-9: PHQ-9 Score PHQ-9: Total score 0 02/24/23 10:53 Depression Screening Interpretation: Negative Thrive Assessment: Date of Thrive Assessment Date Thrive assessed 02/24/23 02/24/23 10:50 Currently or been in a relationship where the following occur: no concerns reported Advance Care Planning discussion: On file, no changes Forms completed: Health Care Proxy Const General: cooperative, healthy appearing and no acute distress Orientation/consciousness: oriented to person, oriented to place and oriented to time [facility] Head: Yes normal to inspection, Yes normocephalic and Yes atraumatic Mouth: Normal oral and palatal mucosa present and tongue normal Throat: Yes posterior oropharynx normal and Yes uvula midline Eyes General: appearance normal, both eyes and all related structures Neck Neck: Yes normal visual inspection, Yes full ROM and Yes no lymphadenopathy Thyroid: Thyroid normal Carotids: normal carotid upstroke Chest Chest palpation & inspection: normal inspection of the chest Resp Effort & Inspection: normal respiratory effort and able to speak in complete sentences Auscultation: clear to auscultation bilaterally Cardio Jugular venous distension: no JVD Palpation: normal PMI Rate: regular rate Rhythm: regular rhythm Heart sounds: S1 normal heart sound present and S2 normal heart sound present GI Inspection: Yes normal to inspection Palpation (GI): Soft to palpation and No hepatosplenomegaly present Auscultation: normal bowel sounds General: Yes no CVA tenderness Back/Spine/Pelvis Back: no CVA tenderness Skin General skin exam: no rashes or lesions noted Neuro General: oriented to person, oriented to place and oriented to time Extrem General: Yes normal to inspection and Yes full ROM Results AMB Hemoglobin A1c AMB Hemoglobin A1c 6.9 % Last Edit by ROSA Napier on 02/24/23 10:53 Results Reviewed Results Reviewed: Laboratory Last Values Hgb A1c (Clinic) 6.9 % (4.0-6.0) H 02/24/23 10:42 Assessment and Plan Assessment & Plan (1) Physical exam: Code(s): Z00.00 - Encounter for general adult medical examination without abnormal findings Plan: stable (2) CAD (coronary artery disease): Code(s): I25.10 - Atherosclerotic heart disease of [place] coronary artery without angina pectoris Plan: stable; as per cardiology (3) Type 2 diabetes mellitus with obesity: Code(s): E11.69 - Type 2 diabetes mellitus with other specified complication; E66.9 - Obesity, unspecified Plan: stable; do labs (4) Dyslipidemia: Code(s): E78.5 - Hyperlipidemia, unspecified Plan: stable; same rx Orders: Orders Lipid Panel Today E78.5 - Hyperlipidemia, unspecified Thyroid Stimulating Hormone Today E03.9 - Hypothyroidism, unspecified Comprehensive [place]. Panel Fast Today N28.9 - Disorder of kidney and ureter, unspecified Microalbumin, Random (w Creat) Today E11.69 - Type 2 diabetes mellitus with other specified complication, E66.01 - Morbid (severe) obesity due to excess calories AMB Hemoglobin A1c Today E11.9 - Type 2 diabetes mellitus without complications Complete Blood Count Auto Diff Today D64.9 - Anemia, unspecified Hemoglobin A1c Today R73.9 - Hyperglycemia, unspecified Medications: Refilled lancets (FreeStyle Lancets) As directed twice a day 200 ea 3RF E11.65 - Type 2 diabetes mellitus with hyperglycemia blood sugar diagnostic (FreeStyle Lite Strips) As directed two times a day 200 ea 3RF E11.65 - Type 2 diabetes mellitus with hyperglycemia Coding Level of Care Code Est Pt Prev Care >65y(54745) Diagnoses Physical exam Z00.00 CAD (coronary artery disease) I25.10 Type 2 diabetes mellitus with obesity E11.69; E66.9 Dyslipidemia E78.5 Additional Codes TOMASZ-7 Assessment Billing - TOMASZ-7 Assessment Tool: TOMASZ-7 Assessment 07533 ([id number]) Vital Signs *Quality* - Advance Care Planning discussion: On file, no changes ([id number])
[2023-02-24 10:45] VITALS: BP 98/60; PULSE 87; O2SAT 98; BMI 33.7
== END 2023-02-24 11:09 | disposition home or self-care (01) ==
PROVIDERS: PCP Internal Medicine; Visit Provider Internal Medicine
DX: Z00.00 Encounter for general adult medical examination without abnormal findings (principal); I25.10 Atherosclerotic heart disease of native coronary artery without angina pectoris; E11.69 Type 2 diabetes mellitus with other specified complication; E78.5 Hyperlipidemia, unspecified
CPT/HCPCS: 1123F; 83036; 99397

== ENCOUNTER 2023-05-16 14:00 | Outpatient (AMB) | payer MEDICARE, OTHER, SELFPAY ==
[2023-05-16 14:03] VITALS: BP 92/60; PULSE 80; O2SAT 98; BMI 33.6
--- NOTE | 2023-05-16 14:03 | MHC.PC.OV ---
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 Accompanied by: Self / Same As Patient Allergies succinylcholine [SUCCINYLCHOLINE] Allergy (Severe, Verified 05/16/23 14:03) JAW RIGIDITY lisinopril [LISINOPRIL] Allergy (Intermediate, Verified 05/16/23 14:03) COUGH Medication List - Last Reconciled 05/19/23 by Amaury Burk MD amoxicillin-pot clavulanate 500-125 mg (Augmentin) 1 tab PO BID aspirin (Adult Low Dose Aspirin) 81 mg PO DAILY blood sugar diagnostic (FreeStyle Lite Strips) As directed two times a day blood-glucose meter (FreeStyle [place] Lite kit) As directed carvedilol 12.5 mg PO BID ciprofloxacin HCl (Cipro) 250 mg PO BID clotrimazole-betamethasone 1-0.05 % 1 appl topical BID 2 weeks doxycycline hyclate 100 mg PO BID 1 day lancets (FreeStyle Lancets) As directed twice a day metformin 1,000 mg (2 x 500 mg) PO BID 90 days rosuvastatin 40 mg PO QPM 90 days sacubitril-valsartan 24-26 mg 1 tab PO BID sitagliptin phosphate (Januvia) 100 mg PO DAILY Tobacco use date assessed: 05/16/23 Fall risk assessment: No Falls in past year Last assessed Fall Risk: 05/16/23 Dental Screening Dental Screen Date: 02/24/23 HPI Sick visit (adolescent/adult) HPI Details productive cough for a week [facility] Medical History (Updated 12/09/22 @ 11:07 by Brain Ag MD) Type 2 diabetes mellitus with obesity CAD (coronary artery disease) History of [place] (myocardial infarction) Secondary diabetes mellitus with hyperlipidemia Subclinical hypothyroidism Obesity (BMI 30-39.9) Hypertension Dyslipidemia Diabetes mellitus Surgical History H/O thumb surgery History of appendectomy History of carpal tunnel surgery History of elbow surgery History of implantable cardiac defibrillator (ICD) History of surgery History of vasectomy Family History Father CAD (coronary artery disease) Diabetes Mother CAD (coronary artery disease) Brother CAD (coronary artery disease) S/P CABG x 2 Social History Housing: House Alcohol intake: current Alcohol intake frequency: a few times a month Patient Tobacco Use Status: Former Tobacco user e-Cigarette/Vaping Use: Never Used Second Hand Smoke Exposure: No Substance Use Type: Former Substance User and Marijuana service: Yes Current occupational status: retired Current occupation: right handed Current occupational exposures/hazards: No Cognitive needs: No Hearing needs: No Vision needs: Yes Questionnaire Thrive Questionnaire Date Thrive assessed: 02/24/23 TOMASZ-7 AMB Questionnaire TOMASZ-7 Date TOMASZ - 7 assessed: 02/24/23 Source: Developed by Drs. Martir Elliott, Alice Clifford, Alvin Zhang and colleagues, with an educational andrade from [employer]. Review of Systems Const Denies chills, Denies headache(s) and Denies weight loss ENT Denies headache(s) Card Denies chest pain, Denies syncope, Denies irregular heart rhythm and Denies dyspnea Resp Denies dyspnea GI Denies abdominal pain, Denies change in stool character, Denies nausea and Denies vomiting Musc Denies deformity and Denies joint swelling Neuro Denies syncope and Denies headache(s) Physical exam (Primary Care) Vital Signs: Last Vital Signs Pulse 80 05/16/23 14:03 BP 92/60 05/16/23 14:03 Pulse Ox 98 05/16/23 14:03 Oxygen Delivery Method Room Air 05/16/23 14:03 BMI result Body Mass Index 33.6 Tobacco/Smoking Status: Tobacco use Status Tobacco use date assessed 05/16/23 05/16/23 14:08 Patient Tobacco Use Status Former Tobacco user 05/16/23 14:08 e-Cigarette/Vaping Use Never Used 05/16/23 14:08 Thrive Assessment: Date of Thrive Assessment Date Thrive assessed 02/24/23 05/16/23 14:08 Const General: cooperative, comfortable, no acute distress and alert Neck Neck: Yes no lymphadenopathy Thyroid: Thyroid normal Resp Effort & Inspection: normal respiratory effort Auscultation: clear to auscultation bilaterally Percussion: percussion normal Cardio Jugular venous distension: no JVD Palpation: normal PMI Rate: regular rate Rhythm: regular rhythm Heart sounds: S1 normal heart sound present and S2 normal heart sound present GI Inspection: Yes normal to inspection Palpation (GI): No hepatosplenomegaly present Skin General skin exam: no rashes or lesions noted Extrem General: Yes no clubbing, cyanosis or edema Assessment and Plan Assessment & Plan (1) Cough: Code(s): R05.9 - Cough, unspecified Plan: rx sent Medications: New amoxicillin-pot clavulanate 500-125 mg (Augmentin) 1 tab PO BID 10 tabs 0RF Coding Level of Care Code Est Pt Level 3 (32726) Diagnoses Cough R05.9
== END 2023-05-16 14:14 | disposition home or self-care (01) ==
PROVIDERS: PCP Internal Medicine; Visit Provider Internal Medicine
DX: R05.9 Cough, unspecified (principal)
CPT/HCPCS: 99213

== ENCOUNTER 2023-06-20 08:08 | Outpatient (REF) | payer MEDICARE, OTHER, SELFPAY ==
[2023-06-20 10:30] LABS: MANUAL DIFF FLAG NO
[2023-06-20 10:38] LABS: Basophils Percent Auto 0.4 % (0-2); Eosinophils Absolute Auto 0.2 X10*3/uL (0.0-0.4); Eosinophils Percent Auto 3.1 % (0-4); Hematocrit 42.2 % (42.0-52.0); Hemoglobin 13.8 g/dl (14.0-18.0); Imm Gran Abs Auto 0.02 X10*3/uL (0.00-0.03); Imm Gran Pct Auto 0.3 % (0.0-0.4); Lymphocytes Absolute Auto 2.1 X10*3/uL (1.2-4.9); Lymphocytes Percent Auto 30.4 % (20-40); Mean Corpuscular HGB Conc 32.7 g/dl (31.0-36.0); Mean Corpuscular Hemoglobin 28.3 pg (27.0-33.0); Mean Corpuscular Volume 86.5 fL (80.0-98.0); Mean Platelet Volume 9.6 fL (9.4-12.4); Monocytes Absolute Auto 0.7 X10*3/uL (0.1-1.2); Monocytes Percent Auto 9.5 % (2-11); Neutrophils Absolute Auto 3.9 x10*3/uL (2.0-8.3); Neutrophils Percent Auto 56.3 % (45-73); Platelet Count 188 X10*3/uL (160-400); Red Blood Count 4.88 X10*6/uL (4.60-5.80); Red Cell Distribution Width 14.4 % (11.0-16.0); White Blood Count 6.9 X10*3/uL (4.8-10.8)
[2023-06-20 10:46] LABS: Estimated Average Glucose 134 mg/dL; Hemoglobin A1C 152.1565 umol/L; Hemoglobin A1c % 6.3 % (<6.0)
[2023-06-20 10:58] LABS: Alanine Aminotransferase 19 U/L (0-40); Albumin Level 4.1 g/dL (3.5-5.0); Alkaline Phosphatase 36 U/L (39-117); Anion Gap 12 (12-20); Aspartate Amino Transferase 20 U/L (5-37); Bilirubin Total 0.6 mg/dL (0.0-1.0); Blood Urea Nitrogen 26 mg/dL (9-16); Calcium 9.3 mg/dL (8.4-10.2); Carbon Dioxide 26 mmol/L (22-29); Chloride 105 mmol/L (96-108); Cholesterol 114 mg/dL (<200); Estimated Glomerular Filt Rate 53; Glucose Fasting 118 mg/dL (60-99); HDL Cholesterol 37 mg/dL (>40); LDL Cholesterol Calculated 61 mg/dL (<100); Potassium 4.4 mmol/L (3.3-5.1); Sodium 139 mmol/L (135-145); Total Protein 6.9 g/dL (6.5-8.0); Triglycerides 84 mg/dL (<150)
[2023-06-20 11:24] LABS: Microalbum/Creatinine Ratio Ur 17.2 ug/mg cr (<30)
== END 2023-06-20 08:09 | disposition home or self-care (01) ==
LOC: HO.HMGCLDS 08:08
PROVIDERS: PCP Internal Medicine; Visit Provider Internal Medicine
DX: E66.01 Morbid (severe) obesity due to excess calories (principal); E78.5 Hyperlipidemia, unspecified; E03.9 Hypothyroidism, unspecified; D64.9 Anemia, unspecified; N28.9 Disorder of kidney and ureter, unspecified; E11.65 Type 2 diabetes mellitus with hyperglycemia; E11.69 Type 2 diabetes mellitus with other specified complication
CPT/HCPCS: 36415; 80053; 80061; 82043; 82570; 83036; 84443; 85025

== ENCOUNTER 2023-06-25 09:10 | Outpatient (AMB) | payer MEDICARE, OTHER, SELFPAY ==
[2023-06-25 09:12] VITALS: BP 92/64; PULSE 62; O2SAT 99; BMI 33.3
--- NOTE | 2023-06-25 09:12 | MHC.PC.OV ---
Vital Signs 06/25/23 09:12 Height 5 ft 10 in Weight 232 lb BMI 33.3 BP 92/64 Blood Pressure Location Lt brachial Position Sitting Pulse 62 Pulse Source Pulse Oximeter Pulse Oximetry (%) 99 Oxygen Delivery Method Room Air Intake Visit Reasons: 4 month f/u Allergies succinylcholine [SUCCINYLCHOLINE] Allergy (Severe, Verified 05/16/23 14:03) JAW RIGIDITY lisinopril [LISINOPRIL] Allergy (Intermediate, Verified 05/16/23 14:03) COUGH Tobacco use date assessed: 05/16/23 Fall risk assessment: No Falls in past year Last assessed Fall Risk: 06/25/23 Dental Screening Dental Screen Date: 02/24/23 HPI 4 month f/u HPI Details DM hypertension and hyperlipidemia on rx; doing well; going through divorce [facility] Medical History (Updated 12/09/22 @ 11:07 by Brain Ag MD) Type 2 diabetes mellitus with obesity CAD (coronary artery disease) History of [place] (myocardial infarction) Secondary diabetes mellitus with hyperlipidemia Subclinical hypothyroidism Obesity (BMI 30-39.9) Hypertension Dyslipidemia Diabetes mellitus Surgical History History of carpal tunnel surgery History of surgery History of implantable cardiac defibrillator (ICD) H/O thumb surgery History of elbow surgery History of vasectomy History of appendectomy Family History Father CAD (coronary artery disease) Diabetes Mother CAD (coronary artery disease) Brother CAD (coronary artery disease) S/P CABG x 2 Social History Housing: House Alcohol intake: current Alcohol intake frequency: a few times a month Patient Tobacco Use Status: Former Tobacco user e-Cigarette/Vaping Use: Never Used Second Hand Smoke Exposure: No Substance Use Type: Former Substance User and Marijuana service: Yes Current occupational status: retired Current occupation: right handed Current occupational exposures/hazards: No Cognitive needs: No Hearing needs: No Vision needs: Yes Questionnaire Thrive Questionnaire Date Thrive assessed: 02/24/23 TOMASZ-7 AMB Questionnaire TOMASZ-7 Date TOMASZ - 7 assessed: 02/24/23 Source: Developed by Drs. Martir L. Alice Elliott, Alvin Zhang and colleagues, with an educational andrade from [employer]. Review of Systems Const Denies chills, Denies headache(s) and Denies weight loss ENT Denies headache(s) Card Denies chest pain, Denies syncope, Denies irregular heart rhythm and Denies dyspnea Resp Denies chest congestion, Denies cough and Denies dyspnea GI Denies abdominal pain, Denies change in stool character, Denies nausea and Denies vomiting Musc Denies deformity and Denies joint swelling Neuro Denies syncope and Denies headache(s) Physical exam (Primary Care) Vital Signs: Last Vital Signs Pulse 62 06/25/23 09:12 BP 92/64 06/25/23 09:12 Pulse Ox 99 06/25/23 09:12 Oxygen Delivery Method Room Air 06/25/23 09:12 BMI result Body Mass Index 33.3 Tobacco/Smoking Status: Tobacco use Status Tobacco use date assessed 05/16/23 06/25/23 09:13 Patient Tobacco Use Status Former Tobacco user 06/25/23 09:13 e-Cigarette/Vaping Use Never Used 06/25/23 09:13 Thrive Assessment: Date of Thrive Assessment Date Thrive assessed 02/24/23 06/25/23 09:13 Const General: cooperative, comfortable, no acute distress and alert Neck Neck: Yes no lymphadenopathy Thyroid: Thyroid normal Resp Effort & Inspection: normal respiratory effort Auscultation: clear to auscultation bilaterally Percussion: percussion normal Cardio Jugular venous distension: no JVD Palpation: normal PMI Rate: regular rate Rhythm: regular rhythm Heart sounds: S1 normal heart sound present and S2 normal heart sound present GI Inspection: Yes normal to inspection Palpation (GI): No hepatosplenomegaly present Skin General skin exam: no rashes or lesions noted Extrem General: Yes no clubbing, cyanosis or edema Assessment and Plan Assessment & Plan (1) Type 2 diabetes mellitus with obesity: Code(s): E11.69 - Type 2 diabetes mellitus with other specified complication; E66.9 - Obesity, unspecified Plan: stable; same rx (2) Hypertension: Code(s): I10 - Essential (primary) hypertension Qualifiers: Hypertension type: essential hypertension Qualified Code(s): I10 - Essential (primary) hypertension Plan: stable; same rx (3) Dyslipidemia: Code(s): E78.5 - Hyperlipidemia, unspecified Plan: stable; same rx Orders: Orders Lipid Panel Today Z13.220 - Encounter for screening for lipoid disorders Thyroid Stimulating Hormone Today Z13.29 - Encounter for screening for other suspected endocrine disorder Prostate Specific Antigen Scr Today Z00.00 - Encounter for general adult medical examination without abnormal findings Hemoglobin A1c Today R73.9 - Hyperglycemia, unspecified Glucose Fasting Today R73.9 - Hyperglycemia, unspecified Coding Level of Care Code Est Pt Level 4 (01290) Diagnoses Type 2 diabetes mellitus with obesity E11.69; E66.9 Essential hypertension I10 Hypertension type: essential hypertension Dyslipidemia E78.5
== END 2023-06-25 09:38 | disposition home or self-care (01) ==
PROVIDERS: PCP Internal Medicine; Visit Provider Internal Medicine
DX: E11.69 Type 2 diabetes mellitus with other specified complication (principal); E66.9 Obesity, unspecified; Z68.33 Body mass index [BMI] 33.0-33.9, adult; I10 Essential (primary) hypertension; E78.5 Hyperlipidemia, unspecified
CPT/HCPCS: 99214

== ENCOUNTER 2023-10-24 06:52 | Outpatient (REF) | payer MEDICARE, OTHER, SELFPAY ==
[2023-10-24 07:44] LABS: Cholesterol 109 mg/dL (<200); Glucose Fasting 113 mg/dL (60-99); HDL Cholesterol 37 mg/dL (>40); LDL Cholesterol Calculated 54 mg/dL (<100); Triglycerides 90 mg/dL (<150)
[2023-10-24 07:57] LABS: Estimated Average Glucose 140 mg/dL; Hemoglobin A1c % 6.5 % (<6.0); Prostate Specific Antigen Scr 1.33 ng/mL (<0.05-4.0)
[2023-10-24 08:00] LABS: Thyroid Stimulating Hormone 4.48 uIU/mL (0.32-4.0)
== END 2023-10-24 06:53 | disposition home or self-care (01) ==
LOC: HO.LAB 06:52
PROVIDERS: PCP Internal Medicine; Visit Provider Internal Medicine
DX: Z00.00 Encounter for general adult medical examination without abnormal findings (principal); R73.9 Hyperglycemia, unspecified; Z13.220 Encounter for screening for lipoid disorders; Z13.29 Encounter for screening for other suspected endocrine disorder; Z12.5 Encounter for screening for malignant neoplasm of prostate
CPT/HCPCS: 36415; 80061; 82947; 83036; 84153; 84443

== ENCOUNTER 2023-10-31 08:13 | Outpatient (AMB) | payer MEDICARE, OTHER, SELFPAY ==
[2023-10-31 08:33] VITALS: BP 104/68; PULSE 66; O2SAT 97; BMI 33.6
--- NOTE | 2023-10-31 08:33 | A.OFFPC_ITS ---
Vital Signs 10/31/23 08:33 Height 5 ft 10 in Weight 234 lb BMI 33.6 BP 104/68 Blood Pressure Location Lt brachial Position Sitting Pulse 66 Pulse Source Pulse Oximeter Pulse Oximetry (%) 97 Intake Visit Reasons: [facility] f[facility]u Varnisher Required: No Accompanied by: Self / Same As Patient Allergies succinylcholine [SUCCINYLCHOLINE] Allergy (Severe, Verified 10/31/23 08:39) JAW RIGIDITY lisinopril [LISINOPRIL] Allergy (Intermediate, Verified 10/31/23 08:39) COUGH Medication List - Last Reconciled 10/31/23 by Amaury Bruk MD aspirin (Adult Low Dose Aspirin) 81 mg PO DAILY blood sugar diagnostic (FreeStyle Lite Strips) As directed two times a day blood-glucose meter (FreeStyle [place] Lite kit) As directed carvedilol 12.5 mg PO BID ciprofloxacin HCl (Cipro) 250 mg PO BID clotrimazole-betamethasone 1-0.05 % 1 appl topical BID 2 weeks lancets (FreeStyle Lancets) As directed twice a day metformin 1,000 mg (2 x 500 mg) PO BID 90 days rosuvastatin 40 mg PO QPM 90 days sacubitril-valsartan 24-26 mg 1 tab PO BID sitagliptin phosphate (Januvia) 100 mg PO DAILY Tobacco use date assessed: 05/16/23 Fall risk assessment: No Falls in past year Last assessed Fall Risk: 10/31/23 Dental Screening Dental Screen Date: 02/24/23 HPI [facility] f/u HPI Details diabetes in good control; compliant [facility] Medical History (Updated 12/09/22 @ 11:07 by Brain Ag MD) Type 2 diabetes mellitus with obesity CAD (coronary artery disease) History of [place] (myocardial infarction) Secondary diabetes mellitus with hyperlipidemia Subclinical hypothyroidism Obesity (BMI 30-39.9) Hypertension Dyslipidemia Diabetes mellitus Surgical History History of carpal tunnel surgery History of surgery History of implantable cardiac defibrillator (ICD) H/O thumb surgery History of elbow surgery History of vasectomy History of appendectomy Family History Father CAD (coronary artery disease) Diabetes Mother CAD (coronary artery disease) Brother CAD (coronary artery disease) S/P CABG x 2 Social History Housing: House Alcohol intake: current Alcohol intake frequency: a few times a month Patient Tobacco Use Status: Former Tobacco user Tobacco use type: Cigarette e-Cigarette/Vaping Use: Never Used Second Hand Smoke Exposure: No Substance Use Type: Former Substance User and Marijuana service: Yes Current occupational status: retired Current occupation: right handed Current occupational exposures/hazards: No Cognitive needs: No Hearing needs: No Vision needs: Yes Questionnaire PHQ-9 Over the last 2 weeks, how often have you been bothered by any of the following problems? 1. Little interest or pleasure in doing things: not at all 2. Feeling down, depressed, or hopeless: not at all 3. Trouble falling or staying asleep, or sleeping too much: not at all 4. Feeling tired or having little energy: not at all 5. Poor appetite or overeating: not at all 6. Feeling bad about yourself - or that you are a failure or have let yourself or your family down: not at all 7. Trouble concentrating on things, such as reading the newspaper or watching television: not at all 8. Moving or speaking so slowly that other people could have noticed. Or the opposite - being so fidgety or restless that you have been moving around a lot more than usual: not at all 9. Thoughts that you would be better off or of hurting yourself in some way: not at all Total score: 0 Depression Screening Interpretation: Negative Depression Screening Done: Yes 34564 - PHQ-9 Billing: Yes Source: Developed by Drs. Martir Elliott, Alice Clifford, Alvin Zhang and colleagues, with an educational andrade from [email or web address]. Thrive Questionnaire Date Thrive assessed: 02/24/23 AUDIT C Alcohol Use Questionnaire (AUDIT-C) 2. How many drinks containing alcohol do you have on a typical day when you are drinking?: 1 or 2 3. How often do you have six or more drinks on one occasion?: Less than monthly Total Score: 1 TOMASZ-7 AMB Questionnaire TOMASZ-7 Date TOMASZ - 7 assessed: 02/24/23 Source: Developed by Drs. Martir Elliott, Alice Clifford, Alvin Zhang and colleagues, with an educational andrade from [email or web address]. Review of Systems Const Denies chills, Denies headache(s) and Denies weight loss ENT Denies headache(s) Card Denies chest pain, Denies syncope, Denies irregular heart rhythm and Denies dyspnea Resp Denies chest congestion, Denies cough and Denies dyspnea GI Denies abdominal pain, Denies change in stool character, Denies nausea and Denies vomiting Musc Denies deformity and Denies joint swelling Neuro Denies syncope and Denies headache(s) Physical exam (Primary Care) Vital Signs: Last Vital Signs Pulse 66 10/31/23 08:33 BP 104/68 10/31/23 08:33 Pulse Ox 97 10/31/23 08:33 BMI result Body Mass Index 33.6 Tobacco/Smoking Status: Tobacco use Status Tobacco use date assessed 05/16/23 10/31/23 08:39 Patient Tobacco Use Status Former Tobacco user 10/31/23 08:39 Tobacco use type Cigarette 10/31/23 08:39 e-Cigarette/Vaping Use Never Used 10/31/23 08:39 PHQ-9: PHQ-9 Score PHQ-9: Total score 0 10/31/23 08:39 Depression Screening Interpretation: Negative Thrive Assessment: Date of Thrive Assessment Date Thrive assessed 02/24/23 10/31/23 08:39 Const General: cooperative, comfortable, no acute distress and alert Neck Neck: Yes no lymphadenopathy Thyroid: Thyroid normal Resp Effort & Inspection: normal respiratory effort Auscultation: clear to auscultation bilaterally Percussion: percussion normal Cardio Jugular venous distension: no JVD Palpation: normal PMI Rate: regular rate Rhythm: regular rhythm Heart sounds: S1 normal heart sound present and S2 normal heart sound present GI Inspection: Yes normal to inspection Palpation (GI): No hepatosplenomegaly present Skin General skin exam: no rashes or lesions noted Extrem General: Yes no clubbing, cyanosis or edema Assessment and Plan Assessment & Plan (1) Type 2 diabetes mellitus with obesity: Code(s): E11.69 - Type 2 diabetes mellitus with other specified complication; E66.9 - Obesity, unspecified Plan: stable; same rx Orders: Orders Lipid Panel Today Z13.220 - Encounter for screening for lipoid disorders Glucose Fasting Today R73.9 - Hyperglycemia, unspecified Hemoglobin A1c Today R73.9 - Hyperglycemia, unspecified Coding Level of Care Code Est Pt Level 3 (47177) Diagnoses Type 2 diabetes mellitus with obesity E11.69; E66.9
== END 2023-10-31 08:51 | disposition home or self-care (01) ==
PROVIDERS: PCP Internal Medicine; Visit Provider Internal Medicine
DX: E11.69 Type 2 diabetes mellitus with other specified complication (principal); E66.9 Obesity, unspecified; Z68.33 Body mass index [BMI] 33.0-33.9, adult
CPT/HCPCS: 99213

== ENCOUNTER 2023-11-25 08:03 | Outpatient (AMB) | payer MEDICARE, OTHER, SELFPAY ==
[2023-11-25 08:07] VITALS: BP 120/80; PULSE 69; O2SAT 98; BMI 35.3
--- NOTE | 2023-11-25 08:07 | MHC.OFFWIV ---
Intake Vital Signs 11/25/23 08:07 Height 5 ft 10 in Weight 246 lb BMI 35.3 BP 120/80 Blood Pressure Location Lt brachial Position Sitting Pulse 69 Pulse Source Pulse Oximeter Pulse Oximetry (%) 98 Oxygen Delivery Method Room Air Intake Visit Reasons: EP tick bite Intake Note: Patient here for tick bite on belly. pt states it had 3 bites and found one this morning Patient Tobacco Use Status: Former Tobacco user Allergies succinylcholine [SUCCINYLCHOLINE] Allergy (Severe, Verified 11/25/23 08:14) JAW RIGIDITY lisinopril [LISINOPRIL] Allergy (Intermediate, Verified 11/25/23 08:14) COUGH Do you need a note to return to daycare/school/sports/work: No HPI HPI Comments History of Present Illness Details Patient is a 68-year-old male complaining of a tick bite to his abdomen. 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 He tells me he woke up this morning and found another 1 on his lower abdomen. He removed it and brought it in with him today and a plastic baggy. He also took a picture of it on his abdomen. He denies any fevers, rashes or joint pain. [facility] Medical History (Updated 11/25/23 @ 08:29 by Bev Marley PA-C) Type 2 diabetes mellitus with obesity CAD (coronary artery disease) History of [place] (myocardial infarction) Secondary diabetes mellitus with hyperlipidemia Subclinical hypothyroidism Obesity (BMI 30-39.9) Hypertension Dyslipidemia Diabetes mellitus Surgical History History of carpal tunnel surgery History of surgery History of implantable cardiac defibrillator (ICD) H/O thumb surgery History of elbow surgery History of vasectomy History of appendectomy Family History Father CAD (coronary artery disease) Diabetes Mother CAD (coronary artery disease) Brother CAD (coronary artery disease) S/P CABG x 2 Social History Housing: House Alcohol intake: current Alcohol intake frequency: a few times a month Patient Tobacco Use Status: Former Tobacco user Tobacco use type: Cigarette e-Cigarette/Vaping Use: Never Used Second Hand Smoke Exposure: No Substance Use Type: Former Substance User and Marijuana service: Yes Current occupational status: retired Current occupation: right handed Current occupational exposures/hazards: No Cognitive needs: No Hearing needs: No Vision needs: Yes Review of Systems Const All systems reviewed & are unremarkable except as noted in HPI and below Physical Exam Vital Signs: Last Vital Signs Pulse 69 11/25/23 08:07 BP 120/80 11/25/23 08:07 Pulse Ox 98 11/25/23 08:07 Oxygen Delivery Method Room Air 11/25/23 08:07 BMI result Body Mass Index 35.3 Const General: cooperative, healthy appearing, comfortable, no acute distress and well developed Orientation/consciousness: patient oriented x3 Limitations: no limitations HEENT Head: Yes normal to inspection Ears: hearing grossly normal bilaterally General nose exam: Normal external nose present Face and sinus: Yes normal facial exam Eyes General: appearance normal, both eyes and all related structures Neck Neck: Yes normal visual inspection and Yes full ROM Resp Effort & Inspection: normal respiratory effort and able to speak in complete sentences Skin Other: 0.5 cm area of erythema where tick was attached, no warmth, no erythema migrans and no evidence of infection Neuro General: patient oriented x3 Extrem General: Yes normal to inspection Assessment & Plan Assessment & Plan (1) Tick bite of abdomen: Code(s): S30.861A - Insect bite (nonvenomous) of abdominal wall, initial encounter; W57.XXXA - Bitten or stung by nonvenomous insect and other nonvenomous arthropods, initial encounter Qualifiers: Encounter type: initial encounter Qualified Code(s): S30.861A - Insect bite (nonvenomous) of abdominal wall, initial encounter; W57.XXXA - Bitten or stung by nonvenomous insect and other nonvenomous arthropods, initial encounter Plan: Sent prophylactic dose of doxycycline. Advised patient to be on the lookout for symptoms of Lyme disease and to follow up with his PCP if he should develop any symptoms. Plan See above Medications: New doxycycline hyclate 200 mg (2 x 100 mg) PO ONCE 2 tabs 0RF tick bite ppx Coding Level of Care Code Est Pt Level 3 (25441) Diagnoses Tick bite of abdomen, initial encounter S30.861A; W57.XXXA Encounter type: initial encounter
== END 2023-11-25 08:45 | disposition home or self-care (01) ==
PROVIDERS: PCP Internal Medicine; Visit Provider Physician Assistant
DX: S30.861A Insect bite (nonvenomous) of abdominal wall, initial encounter (principal); W57.XXXA Bitten or stung by nonvenomous insect and other nonvenomous arthropods, initial encounter

== ENCOUNTER → 2023-11-25 08:03 | Outpatient (BNVA) | payer MEDICARE, OTHER, SELFPAY | PROVIDERS: PCP Internal Medicine; Visit Provider Physician Assistant | DX: S30.861A Insect bite (nonvenomous) of abdominal wall, initial encounter (principal); W57.XXXA Bitten or stung by nonvenomous insect and other nonvenomous arthropods, initial encounter | CPT/HCPCS: 99212 ==

== ENCOUNTER 2024-01-23 08:21 | Outpatient (REF) | payer MEDICARE, OTHER, SELFPAY ==
[2024-01-23 11:01] LABS: Cholesterol 115 mg/dL (<200); Glucose Fasting 126 mg/dL (60-99); HDL Cholesterol 36 mg/dL (>40); LDL Cholesterol Calculated 57 mg/dL (<100); Triglycerides 110 mg/dL (<150)
[2024-01-23 11:35] LABS: Estimated Average Glucose 146 mg/dL; Hemoglobin A1C 168.4107 umol/L; Hemoglobin A1c % 6.7 % (<6.0)
--- OUTSIDE RECORDS SUMMARY | 2024-01-28 05:26 | XMS_ITS | Patient Health Record ---
Author Organization [facility] Address [address] [place] [address] Care Team Providers Care Heavy Mobile Equipment Repairer Name Role Phone Amaury Burk MD Primary Care Provider Unavaila ble Black, Dipti Unavailable [phone] Allergies Allergen (clinical drug ingredient) Drug/Non Drug Allergy documented on EMR Reaction Allergy Type Onset Date Status succinylcholine succinol anectine (uncoded) hyperthermia Allergy Active Results Component Value Reference Range Notes HEMOGLOBIN A1C (GLYCOHEMOGLO BIN) Reviewed date:04/14/2023 08:18:01 AM Interpretation: Performing Lab: Notes/Report: TOTAL HEMOGLOBIN (HGBA1C) 6.9 Reason For Referral No Information Medications Medication SIG (Take, Route, Frequency, Duration) Notes Start Date End Date Status Rosuvastatin Calcium 40 MG 1 tablet Orally Once a day Active Ciclopirox Olamine 0.77% external Apply to effected areas twice a day for 30 days PRN 05/16/2014 Not-Taking Carvedilol 12.5 MG 1 tablet with food Orally Twice a day Active Irbesartan 150 MG 1 tablet Orally Once a day for 30 day(s) Not-Taking metFORMIN HCl 1000 MG 1 tablet with meal s Orally Twice a day Active Entresto 24-26 MG 1 tablet Orally Twic e a day for 30 day(s) valsartan Active Januvia Active Atorvastatin Calcium 40 MG 1 tablet Orally Once a day for 30 day(s) Not-Taking Aspirin 81 MG 1 tablet Orally Once a day for 30 day(s) Active Immunizations Vaccine Route Administration Date Status Comme nts COVID-19 Pfizer BioNTech Vaccine Unknown 11/25/2020 Administered First Dose: 04/20/2020 Second Dose: 05/11/2020 Influenza Unknown 05/22/2015 Administered Influenza Unknown 12/04/2015 Administered Influenza Unknown 10/18/2017 Administered Influenza Unknown 11/18/2020 Administered Influenza Unknown 10/18/2022 Administered Social History Tobacco Use: Social History Observation Description Date Details (start date - stop date) Never Smoker NA - NA Tobacco Use/Smoking Question Answer Notes Are you a: nonsmoker Additional Findings: Tobacco Non-User Current no n-smoker Alcohol Screen Question Answer Notes Did you have a drink contain ing alcohol in the past year? Yes How often did you have a dri nk containing alcohol in the past year? Monthly or less (1 point) How many drinks did you have on a typical day when you were drinking in the past year? 1 or 2 drinks (0 point) How often did you have 6 or more drinks on one occasion in the past year? Weekly (3 points) Points 4 Interpretation Positive Tobacco use other than smoking: Question Answer Notes Are you an other tobacco user? No Problems Problem Type SNOMED Code ICD Code Onset Dates Problem Status W/U Status Risk Notes Problem Acquired hammer toe of right foot (8102335808121560 ) Other hammer toe(s) (acquired), right foot (M20.41) Active confirmed Problem Acquired hammer toe of left foot (5162921222904396 ) Other hammer toe(s) (acquired), left foot (M20.42) Active confirmed Problem Type II diabetes mellitus without complication (016227913) Diabetes mellitus type 2, diet-controll ed (E11.9) Active confirmed Vital Signs Blood pressure diastolic 68 mm Hg 04/14/2023 Height 5ft 10in in 04/14/2023 Blood pressure systolic 105 mm Hg 04/14/2023 Weight 230 lbs 04/14/2023 BMI 33 kg/m2 04/14/2023 Procedures Procedure Date Ordered Date Performed Result Body Sit e 44936-TDBP SKIN LESIONS, 2 TO 4 04/14/2023 N/A 51625-QUBQ NAIL(S) 04/14/2023 N/A Encounters Encounter Location Date Provider Diagnosis [facility] [address] [place] [address] 04/14/2023 Dipti Black Diabetes mellitus type 2, diet-controlled E11.9 ; Other hammer toe(s) (acquired), left foot M20.42 ; Other hammer toe(s) (acquired), right foot M20.41 and Tinea pedis of both feet B35.3 [facility] [address] [place] [address] 06/11/2023 Dipti Fountain Assessments Encounter Date Diagnosis (ICD Code) Assessment Notes Treatment Notes Treatment Clinical Notes Section Notes 04/14/2023 Other hammer toe(s) (acquired), left foot (ICD-10 - M20.42) 04/14/2023 Diabetes mellitus type 2, diet-controlled (ICD-10 - E11.9) 04/14/2023 Other hammer toe(s) (acquired), right foot (ICD-10 - M20.41) 04/14/2023 Tinea pedis of both feet (ICD-10 - B35.3) Plan Of Treatment Pending Test Test Name Order Date 93874-LEEQ SKIN LESIONS, 2 TO 4 05/23/19 18 79906-ITUB SKIN LESIONS, 2 TO 4 05/22/19 19 67581-BONX SKIN LESIONS, 2 TO 4 04/02/19 22 28434-CNSC SKIN LESIONS, 2 TO 4 04/14/19 24 12800-TUBS NAIL(S) 04/14/2023 67783-GYAZ NAIL(S) 04/02/2021 14723-UYVI NAIL(S) 05/21/2018 14211-FGEB NAIL(S) 05/22/2015 23436-UYSV NAIL(S) 05/20/2016 76245-VYYK NAIL(S) 05/22/2017 Next Appt Details Provider Name:Dipti Fountain , 04/12/2024 08:15:00 AM, [address] [place], [address], Insurance Providers Payer Name Payer Address Payer Phone Subscriber Number Group Number Insured Name Patient Relationship to Insured Coverage Start Date Coverage End Date Medicare [facility] [address] [place] [address] [id number] Chema Baker Self - patient is the insured [facility] [address] [place] [address] [id number] Chema Baker Self - patient is the insured Medical (General) History Medical History History ICD Code diabetic heart disease measles chicken pox Detached Retina Surgical History Surgery Date(Month/Year) appendectomy 1967 pin in broken arm 1977 automatic implantable cardioverter defib rillator (AICD) 08/2015 detached retina x2
--- OUTSIDE RECORDS SUMMARY | 2024-01-28 05:26 | XMS_ITS ---
Author Organization [facility] Address [address] [place] [address] Care Team Providers Care Cigar Making Supervisor Name Role Phone Bhargavi STEPHENSON, Amaury Primary Care Provider Unavaila ble Black, Dipti Unavailable [phone] Allergies Allergen (clinical drug ingredient) Drug/Non Drug Allergy documented on EMR Reaction Allergy Type Onset Date Status succinylcholine succinol anectine (uncoded) hyperthermia Allergy Active REASON FOR VISIT At Risk Footcare, Dry skin, Toe Issue Medications Medication SIG (Take, Route, Frequency, Duration) Notes Start Date End Date Status Ciclopirox Olamine 0.77% external Apply to effected areas twice a day for 30 days PRN 05/16/2014 Not-Taking Carvedilol 12.5 MG 1 tablet with food Orally Twice a day Active Irbesartan 150 MG 1 tablet Orally Once a day for 30 day(s) Not-Taking metFORMIN HCl 1000 MG 1 tablet with meal s Orally Twice a day Active Atorvastatin Calcium 40 MG 1 tablet Orally Once a day for 30 day(s) Not-Taking Rosuvastatin Calcium 40 MG 1 tablet Orally Once a day Active Entresto 24-26 MG 1 tablet Orally Twic e a day for 30 day(s) valsartan Active Januvia Active Aspirin 81 MG 1 tablet Orally Once a day for 30 day(s) Active Social History Tobacco Use: Social History Observation [...] Are you an other tobacco user? No Vital Signs Height 5ft 10in in 04/14/2023 Weight 230 lbs 04/14/2023 BMI 33 kg/m2 04/14/2023 Blood pressure systolic 105 mm Hg 04/14/19 Blood pressure diastolic 68 mm Hg 024 Procedures Procedure Date Ordered Date Performed Result Body Sit e 64474-YXDP SKIN LESIONS, 2 TO 4 04/14/2023 N/A 73386-MABH NAIL(S) 04/14/2023 N/A Encounters Encounter Location Date Provider Diagnosis [facility] [address] [address] 04/14/2023 Dipti Александр Diabetes mellitus type 2, diet-controlled E11.9 ; Other hammer toe(s) (acquired), left foot M20.42 ; Other hammer toe(s) (acquired), right foot M20.41 and Tinea pedis of both feet B35.3 Assessments Encounter Date Diagnosis (ICD Code) Assessment Notes Treatment Notes Treatment Clinical Notes Section Notes 04/14/2023 Diabetes mellitus type 2, diet-controlled (ICD-10 - E11.9) 04/14/2023 Other hammer toe(s) (acquired), left foot (ICD-10 - M20.42) 04/14/2023 Other hammer toe(s) (acquired), right foot (ICD-10 - M20.41) 04/14/2023 Tinea pedis of both feet (ICD-10 - B35.3) Plan Of Treatment Pending Test Test Name Order Date 71041-SMZZ SKIN LESIONS, 2 TO 4 04/14/19 50123-UZUR NAIL(S) 04/14/2023 Next Appt Details Follow Up: 1 Year, Reason: Provider Name:Dipti Fountain , 04/12/2024 08:15:00 AM, [address] [place], [address], Procedure Notes * Category Sub-Category Detail Notes Keratoma Treatment Parring or Cutting o f Benign Hyperkeratotic Lesion(s) 00250 (2-4 Lesions) - The Benign hyperkeratotic lesions, as described above were pared, and/or cut utilizing a sterile #15 blade, tissue nippers, and/or dremel Nail Reduction Nail Reduction Trimming of non- dystrophic nails performed to reduce/remove overall nail length and girth, by manual and electrical means with use of a nail nipper and/or dremel, to more viable healthy nail plate or bed tissue 6-10 (87547) Progress Notes * Chema FAGAN PDOB:1955 (67 yo M)Acc No.[id number]:04/14/2023 Progress Note Patient:?Rylan, Chema P Provider:?Dipti Fountain DPM :1955???Age:67 Y???Sex:Male Hudson e:04/14/2023 Address:[address] [place] [address] [facility] Pcp:Amaury Burk MD Subjective: * Chief Complaints: * ???At Risk FootcareDry skinT oe Issue * HPI: ???At Risk footcare:?Pt States Last PCP Visit:?Date?02/24/2023 ???Skin problems:?Nature:?dryness.?Location:?, Interspace(s)/Between toe(s).?Duration:?several months.?Onset/Cause:?unknown.?Course:?worsened.?Toe Issues:?Toe Issues?Location: b/l.? * ROS:?General/Constitutional:?Nausea?denies, denies.?Vomiting?denies, denies.?Hunger Thirst?denies, denies.?Loss appetite?denies, denies.?Chills?denies, denies.?Fatigue?denies, denies.?Fever?denies, denies.?Night Sweats denies, denies.?Unexplained weight loss?denies, denies.?Ophthalmologic:?Blurred vision?denies, denies.?Red eye?denies, denies.?HEENTM:?Dentures?denies, denies.?Dizziness?denies, denies.?Glasses/contacts?admits, admits.?Retinopathy?denies, denies.?Blurred/double vision?denies, denies.?TMJ?denies, denies.?Discharge/drainage?denies, denies.?Implants?denies, denies.?Hard of hearing ?admits, admits.?Difficulty chewing/swallowing/speaking?denies, denies.?Nose bleeds?denies, denies.?Sore mouth?denies, denies.?Swollen glands?denies, denies.?Respiratory:?On Oxygen?denies, denies.?Pneumonia/pleurisy?denies, denies.?Bronchitis?denies, denies.?Emphysema?denies, denies.?Coughing?denies, denies.?Cough blood?denies, denies.?Shortness of breath?denies, denies.?Wheezing?denies, denies.?Cardiovascular:?Pacemaker?denies, denies.?MVP?denies, denies.?WPW?denies, denies.?CHF?denies, denies.?Heart attack?admits, admits.?Septal defect?denies, denies.?Rapid beat?denies, denies.?Chest pain ?denies, denies.?Atrial Fib.?denies, denies.?Murmur/Palpitations?denies, denies.?Gastrointestinal:?Hemorrhoids?denies, denies.?Stomach/Abdominal pain?denies, denies.?Dark blood stool?denies, denies.?Irritable bowel ?denies, denies.?Constipation?denies, denies.?Diarrhea?denies, denies.?Vomiting?denies, denies.?Hematology:?Swelling?denies, denies.?Bruising?denies, denies.?Bleeding problem?denies, denies.?Genitourinary:?Blood urine?denies, denies.?Frequent/Painfu/urination/bladder control?denies, denies.?Kidney stones?denies, denies.?Infection (UTI)?denies, denies.?Nephropathy?denies, denies.?Musculoskeletal:?Hammertoes?denies, denies.?Bunions?denies, denies.?Scoliosis/kyphosis?denies, denies.?Muscle cramps / walking?denies, denies.?Generalized aches and pains?denies, denies.?Weakness?denies, denies.?Integ.:?Day?denies, denies.?Scars?admits, admits.?Corns/calluses?denies, denies.?Ingrown nails?denies, denies.?Painful nails?denies, denies.?Rashes?denies, denies.?Neurologic:?Difficulty sleeping?denies, denies.?Bipolar?denies, denies.?Brain disorder?denies, denies.?Balance trouble?denies, denies.?Confusion?denies, denies.?Fainting/blackouts?denies, denies.?Headache?denies, denies.?Tremors?denies, denies.? * Medical History:? * Surgical History:?appendecto my 1968pin in broken arm 1978automatic implantable cardioverter defibrillator (AICD) 08/2015detached retina x2 * Hospitalization/Major Diagno stic Procedure:?Denies Past Hospitalization * Family History:?Mother: dece ased, congestive heart failure.?Father: , congestive heart failure.? Pt denies family history. * Social History:?Tobacco Use:?Tobacco Use/Smoking?Are you a:?nonsmoker ?Additional Findings: Tobacco Non-User?Current non-smoker ?Tobacco use other than smoking?Are you an other tobacco user??No ???Drugs/Alcohol:?Drugs?Have you used drugs other than those for medical reasons in the past 12 months??No ?Alcohol Screen?Did you have a drink containing alcohol in the past year??Yes ?How often did you have a drink containing alcohol in the past year??Monthly or less (1 point) ?How many drinks did you have on a typical day when you were drinking in the past year??1 or 2 drinks (0 point) ?How often did you have 6 or more drinks on one occasion in the past year??Weekly (3 points) ?Points?4 ?Interpretation?Positive ???Miscellaneous:?Caffeine: yes, frequency: , 2-3 cups per day. ?Children: yes. ?Exercise: yes, walking, hiking. ?Marital status: . ?Occupation: retired- [employer]. * Medications:?TakingRosuvasta tin Calcium 40 MG Tablet 1 tablet Orally Once a dayJanuvia Entresto 24-26 MG Tablet 1 tablet Orally Twice a day, Notes: valsartanAspirin 81 MG Tablet Chewable 1 tablet Orally Once a dayCarvedilol 12.5 MG Tablet 1 tablet with food Orally Twice a daymetFORMIN HCl 1000 MG Tablet 1 tablet with meals Orally Twice a dayTaking Rosuvastatin Calcium 40 MG Tablet 1 tablet Orally Once a dayTaking Januvia Taking Entresto 24-26 MG Tablet 1 tablet Orally Twice a day, Notes: valsartanTaking Aspirin 81 MG Tablet Chewable 1 tablet Orally Once a dayTaking Carvedilol 12.5 MG Tablet 1 tablet with food Orally Twice a dayTaking metFORMIN HCl 1000 MG Tablet 1 tablet with meals Orally Twice a dayNot-Taking/PRNAtorvastatin Calcium 40 MG Tablet 1 tablet Orally Once a dayCiclopirox Olamine 0.77% Cream external Apply to effected areas twice a day, Notes: PRNIrbesartan 150 MG Tablet 1 tablet Orally Once a dayMedication List reviewed and reconciled with the patientNot-Taking/PRN Atorvastatin Calcium 40 MG Tablet 1 tablet Orally Once a dayNot-Taking/PRN Ciclopirox Olamine 0.77% Cream external Apply to effected areas twice a day, Notes: PRNNot-Taking/PRN Irbesartan 150 MG Tablet 1 tablet Orally Once a dayMedication List reviewed and reconciled with the patient * Allergies:?succinol anectine : hyperthermiayes[Allergies Verified] Objective: * Vitals:?Ht: 5ft 10in, Wt:230 , BMI:33, Shoe size: 10, BP:105/68 mm Hg, BS: 99, Ht-cm: 177.8 cm, Wt-k.33 kg. * ???Past Orders: ???Lab:HEMOGLOBIN A1C (GLYCO HEMOGLOBIN) (Order Date - 02/17/2023) (Collection Date - 02/17/2023) ? Value Reference Range ?TOTAL HEMOGLOBIN (HGBA1C) 6.9 * Examination: ???Ophthalmology Referral: ?DIABETES EYE EXAM?General Examination: ?GENERAL APPEARANCE:?Reveals a pleasant, alert, well nourished, well developed, well hydrated individual, who demonstrates proper attention to hygene/body habitus, and is in no acute distress.?ORIENTED:?person, place, and time.?FOOT EXAM:?Neurological: ?SENSORY:?Neurological exam reveals intact sensorium, pain sensation normal, vibration sensation intact, pinprick sensation is normal in the lower extremities, Pt denies, anesthesia, burning, paresthesia, tingling, B/L,5.07 monofilament test performed at plantar aspects of 5 varied sites per foot shows sensation,normal,B/L.?Vascular: ?DP PULSES:?2/4, B/L.?PT PULSES:?3/4, B/L.?CAPILLARY FILL TIME:?immediate, all digits, B/L.?SKIN TEMPERTURE GRADIENT OF THE LOWER EXTERMITIES:?normal, warm to cool, proximal to distal, B/L, B/L.?HAIR GROWTH/TEXTURE/ELASTICITY/TURGOR:?normal, B/L.?PIGMENTATION:?normal, B/L.?EDEMA:?absent, B/L.?Nails: ?NAILS are:??nondystrophic, 1-5 B/L.?Dermatologic: ?SKIN FINDINGS:?Skin shows sign(s) of, inflammation, interdigital maceration, dryness and , pruritus, B/L.?Orthopedic: ?MUSCLE STRENGTH:?5/5 all groups in a symmetrical fashion , B/L.?DIGITAL DEFORMITIES:?Digital contracture, PIPJ, 2-5 B/L, incompl-reducable to push-up test, no over, nor underlapping.?FOOTWEAR:? Non-Diabetic however, good condition supportive ?.? Assessment: * Assessment: 1.?Other hammer toe(s) (acqu ired), left foot - M20.42?2.?Diabetes mellitus type 2, diet-controlled - E11.9 (Primary)?3.?Other hammer toe(s) (acquired), right foot - M20.41?4.?Tinea pedis of both feet - B35.3? Plan: * Treatment: * Procedures:?Keratoma Treatment:?Parring or Cutting of Benign Hyperkeratotic Lesion(s)?47601 (2-4 Lesions) - The Benign hyperkeratotic lesions, as described above were pared, and/or cut utilizing a sterile #15 blade, tissue nippers, and/or dremel.?Nail Reduction:?Nail Reduction?Trimming of non-dystrophic nails performed to reduce/remove overall nail length and girth, by manual and electrical means with use of a nail nipper and/or dremel, to more viable healthy nail plate or bed tissue 6-10 (11545).? * Procedure Codes:?87698 TRIM NAIL(S), Modifiers: XS 37062 TRIM SKIN LESIONS, 2 TO 4, Modifiers: XS * Preventive Medicine:? ??Counseling:?Discussion:?-14: Office or other outpatient visit for the evaluation and management of an established patient, which required a medically appropriate history and/or examination and MODERATE level of DECISION MAKING for: 1 OR MORE CHRONIC PROBLEM(S) THATS WORSENING, 2 STABLE CHRONIC PROBLEMS, A NEWLY DIAGNOSED PROBLEM WITH UNCERTAIN PROGNOSIS, AN ACUTE COMPLICATED INJURY WITH MULTIPLE TREATMENT OPTIONS, OR AN ACUTE PROBLEM WITH ACCOMPANYING SYSTEMIC SYMPTOMS, THAT POSE(S) A MODERATE RISK OF MORBIDITY. THIS CONDITION MAY ALSO INCLUDE RX DRUG MANAGEMENT, OR A DECISON FOR MINOR SURGERY. The visit on the day of the encounter encompassed interpreting the data and educating the patient as to the nature of their condition, treatment options available according to their individual PMH, meds, allergies, and overall health/living conditions, as well as any potential risks or complications that may occur from a failure to adhere to, and participate in, the recommended course of therapy. The discussion included a complete verbal, and/or written explanation of the examination results, any x-rays taken, the proposed diagnosis, and outline of the treatment plan. A schedule for future care needs was also explained. The patient verbalized an understanding of the instructions at this time and agreed to be an active participant in their treatment. If the patient should think of any questions or concerns after the visit, I have encouraged the patient to call the office.?Digital Treatment:?HT- I explained to the patient the possible etiologies of Hammertoes, including genetics/foot type/shoegear/activity level/exercise routine and the risks/benefits of all the different treatment options for their pain including: No treatment at all, Rest, Ice, New/supportive/wider/deeper Shoegear, Digital Padding/Strapping/Taping/Bracing/Gel protective sleeves, Foot/Ankle AFO Bracing, Stretching exercises, Deep Tissue Massage, Arch support/shoe inserts with splay metatarsal padding, and Custom orthoses. I insisted that any digital devices be removed daily and not worn overnight for safety. The patient is to carefully examine the toes daily for any skin irritation while using any splinting or padding device. The advantages and disadvantages of each option were discussed and the patients questions re: shoegear, padding, custom vs prefabricated inserts, activity level, and consistency in home treatment regimens for optimal success were answered to their verbally confirmed satisfaction.?Shoe Gear Counseling:?The patient and I reviewed the types of shoes they should be wearing. My recommendation included obtaining a well-fitted shoe with a good supportive, non-foldable nor twistable sole, plenty of toe/room for the forefoot, and proper arch support. Based on todays examination, I recommended the patient look for new shoes, by having their feet professionally measured. We discussed that generally the best time of the day for a shoe fitting is the afternoon. Different shoes types and brands to best match the patients occupation and vocation were discussed. Specific brand selection will be up to the patient, their individual foot condition/deformities, and fit. The patient and I reviewed the standard new shoe break in period by wearing them for a few hours a day while checking for redness or sores as wear time is increased. The patient verbally confirmed to understanding the information discussed, The patient deferred recommended diabetic shoes with heat moled inserts.?Tinea Pedis:?The patient was counseled on the diagnosis, potential etiologies, and treatment options for their skin condition. We discussed the risks and benefits of each option from performing no treatment, to utilizing OTC topical skin creams, prescription topical creams, customized compounded topical medications, and, if necessary, to utilize oral antifungal therapy. We discussed the advantages and disadvantages of each possible treatment and importance for adherence to all the recommended therapies for optimum success and avoid potential complications such as open sore/infection/possible hospitalization. We discussed the potential effectiveness of each topical preparation as well as each ones possible side effects and/or patient medication interactions if oral therapy is selected. Patient questions re: the advantages and disadvantages of each treatment choice, medication use/dosage, successful outcomes, and application consistency were reviewed and the patient verbalized that all answers were clearly understood. The patient was told they can help alleviate symptoms by utilizing moisture absorbant innersoles with activated charcoal and baking soda, applying antifungal sprays daily, aerating toe web spaces at night by putting cotton or lambs wool between the toes, alternating shoe gear daily if possible so they can dry out, changing socks at least once during the day, wearing well-ventilated shoes or sandals. The patient has decided to apply antifungal skin creams to their feet as directed. pt denies rx he will piuck up OTC cream.? * Follow Up:?1 Year * Images: * Sign off status: Completed true * Provider:?Dipti Fountain DPM Date:?2023 Generated for Emily jackson/Umu/Sharonda on:?01/28/2024 05:26 AM EST History and Physical Notes * HPI (History of Present Illness) Category Sub-Category Detail Notes Category Not es Skin problems Nature: dryness Location: , Interspace(s)/Betw een toe(s) Duration: several months Onset/Cause: unknown Course: worsened At Risk footcare Pt States Last PCP Visit: Date: 4 Toe Issues Toe Issues Location: b/l Examination Category Sub-Category Detail Notes Category Not es Neurological SENSORY: Neurological exa m reveals intact sensorium, pain sensation normal, vibration sensation intact, pinprick sensation is normal in the lower extremities, Pt denies, anesthesia, burning, paresthesia, tingling, B/L, 5.07 monofilament test performed at plantar aspects of 5 varied sites per foot shows sensation, normal, B/L Dermatologic SKIN FINDINGS: Skin shows sign( s) of, inflammation, interdigital maceration, dryness and , pruritus, B/L Orthopedic FOOTWEAR: Non-Diabetic how ever, good condition supportive DIGITAL DEFORMITIES: Digital contracture , PIPJ, 2-5 B/L, incompl-reducable to push-up test, no over, nor underlapping MUSCLE STRENGTH: 5/5 all groups in a symmetrical fashion , B/L General Examination GENERAL APPEARANCE: Reveals a pleasant, alert, well nourished, well developed, well hydrated individual, who demonstrates proper attention to hygene/body habitus, and is in no acute distress FOOT EXAM: Lower Extremity Neurological Exa m performed:: Yes Visual exam of foot performed:: Yes Date: 04/14/2023 Sensory testing performed:: sensations n ormal Sensory and motor testing performed:: se nsations and strength normal Pedal pulse taking performed:: 2+ ORIENTED: person, place, and t jorge Ophthalmology Referral DIABETES EYE EXAM Diabetic Retinopa thy Screening:: Yes Findings of Diabetic Eye Exam:: no retin opathy Vascular DP PULSES(B): 2/4, B/L PT PULSES(B): 3/4, B/L CAPILLARY FILL TIME: immediate, all digi ts, B/L TEMPERTURE GRADIENT(C): normal, warm to cool, proximal to distal, B/L, B/L TROPHIC CONDITION-TEXTURE/ELASTICITY/TURGOR/HAIR GROWTH(B): normal, B/L EDEMA(C): absent, B/L PIGMENTATION: normal, B/L Nails NAILS are: nondystrophic, 1-5 B/L
--- OUTSIDE RECORDS SUMMARY | 2024-01-28 05:26 | XMS_ITS ---
Author Organization [facility] Address [address] [place] [address] Care Team Providers Care Weight Trainer Name Role Phone Amaury Burk MD Primary Care Provider UnavailDipti Jernigan Unavailable [phone] REASON FOR VISIT DX not in LCD Encounters Encounter Location Date Provider Diagnosis [address] [address] 06/11/2023 Dipti Fountain Plan Of Treatment Next Appt Details Provider Name:Dipti A Александр , 04/12/2024 08:15:00 AM, [address] [place], [address], Progress Notes * Chema FAGAN PDOB:1955 (67 yo M)Acc No.[id number]:06/11/2023 Patient:?Chema Fagan :1955???Age:67 Y???Sex:Male Address:[address] [place] [address] * true * Date:? Generated for Printi ng/Famargieg/eTransmitting on:?01/28/2024 05:26 AM EST
== END 2024-01-23 08:22 | disposition home or self-care (01) ==
LOC: HO.HMGCLDS 08:21
PROVIDERS: PCP Internal Medicine; Visit Provider Internal Medicine
DX: R73.9 Hyperglycemia, unspecified (principal); Z13.220 Encounter for screening for lipoid disorders
CPT/HCPCS: 36415; 80061; 82947; 83036

== ENCOUNTER 2024-01-30 08:39 | Outpatient (AMB) | payer MEDICARE, OTHER, SELFPAY ==
[2024-01-30 08:41] VITALS: BP 114/72; PULSE 78; O2SAT 98; BMI 34.4
--- NOTE | 2024-01-30 08:41 | A.OFFPC_ITS ---
Vital Signs 01/30/24 08:41 Height 5 ft 10 in Weight 240 lb BMI 34.4 BP 114/72 Blood Pressure Location Lt brachial Position Sitting Pulse 78 Pulse Source Pulse Oximeter Pulse Oximetry (%) 98 Oxygen Delivery Method Room Air Intake Visit Reasons: 3 Month F/U Allergies succinylcholine [SUCCINYLCHOLINE] Allergy (Severe, Verified 01/30/24 08:42) JAW RIGIDITY lisinopril [LISINOPRIL] Allergy (Intermediate, Verified 01/30/24 08:42) COUGH Medication List - Last Reconciled 02/02/24 by Amaury Burk MD aspirin (Adult Low Dose Aspirin) 81 mg PO DAILY blood sugar diagnostic (FreeStyle Lite Strips) As directed two times a day blood-glucose meter (FreeStyle Wharton Lite kit) As directed carvedilol 12.5 mg PO BID clotrimazole-betamethasone 1-0.05 % 1 appl topical BID 2 weeks doxycycline hyclate 200 mg (2 x 100 mg) PO ONCE lancets (FreeStyle Lancets) As directed twice a day metformin 1,000 mg (2 x 500 mg) PO BID 90 days rosuvastatin 40 mg PO QPM 90 days sacubitril-valsartan 24-26 mg 1 tab PO BID sitagliptin phosphate (Januvia) 100 mg PO DAILY Tobacco use date assessed: 01/30/24 Fall risk assessment: No Falls in past year Last assessed Fall Risk: 01/30/24 Dental Screening Dental Screen Date: 02/24/23 HPI 3 Month F/U HPI Details DM and hyperlipidemia on rx; stable; some dietary indiscretion [facility] Medical History (Updated 11/25/23 @ 08:29 by Bev Marley PA-C) Type 2 diabetes mellitus with obesity CAD (coronary artery disease) History of AL (myocardial infarction) Secondary diabetes mellitus with hyperlipidemia Subclinical hypothyroidism Obesity (BMI 30-39.9) Hypertension Dyslipidemia Diabetes mellitus Surgical History History of carpal tunnel surgery History of surgery History of implantable cardiac defibrillator (ICD) H/O thumb surgery History of elbow surgery History of vasectomy History of appendectomy Family History Father CAD (coronary artery disease) Diabetes Mother CAD (coronary artery disease) Brother CAD (coronary artery disease) S/P CABG x 2 Social History Housing: House Alcohol intake: current Alcohol intake frequency: a few times a month Patient Tobacco Use Status: Former Tobacco user Tobacco use type: Cigarette e-Cigarette/Vaping Use: Never Used Second Hand Smoke Exposure: No Substance Use Type: Former Substance User and Marijuana service: Yes Current occupational status: retired Current occupation: right handed Current occupational exposures/hazards: No Cognitive needs: No Hearing needs: No Vision needs: Yes Questionnaire PHQ-9 Over the last 2 weeks, how often have you been bothered by any of the following problems? 1. Little interest or pleasure in doing things: not at all 2. Feeling down, depressed, or hopeless: not at all 3. Trouble falling or staying asleep, or sleeping too much: not at all 4. Feeling tired or having little energy: not at all 5. Poor appetite or overeating: not at all 6. Feeling bad about yourself - or that you are a failure or have let yourself or your family down: not at all 7. Trouble concentrating on things, such as reading the newspaper or watching television: not at all 8. Moving or speaking so slowly that other people could have noticed. Or the opposite - being so fidgety or restless that you have been moving around a lot more than usual: not at all 9. Thoughts that you would be better off or of hurting yourself in some way: not at all Total score: 0 Depression Screening Interpretation: Negative Depression Screening Done: Yes 16946 - PHQ-9 Billing: Yes Source: Developed by Drs. Martir Elliott, Alice Clifford, Alvin Zhang and colleagues, with an educational andrade from [employer]. Thrive Questionnaire Date Thrive assessed: 02/24/23 AUDIT C Alcohol Use Questionnaire (AUDIT-C) 2. How many drinks containing alcohol do you have on a typical day when you are drinking?: 1 or 2 3. How often do you have six or more drinks on one occasion?: Less than monthly Total Score: 1 TOMASZ-7 AMB Questionnaire TOMASZ-7 Date TOMASZ - 7 assessed: 02/24/23 Source: Developed by Drs. Martir Elliott, Alice Clifford, Alvin Zhang and colleagues, with an educational andrade from [employer]. Review of Systems Const Denies chills, Denies headache(s) and Denies weight loss ENT Denies headache(s) Card Denies chest pain, Denies syncope, Denies irregular heart rhythm and Denies d yspnea Resp Denies chest congestion, Denies cough and Denies dyspnea GI Denies abdominal pain, Denies change in stool character, Denies nausea and Den ies vomiting Musc Denies deformity and Denies joint swelling Neuro Denies syncope and Denies headache(s) Physical exam (Primary Care) Vital Signs: Last Vital Signs Pulse 78 01/30/24 08:41 BP 114/72 01/30/24 08:41 Pulse Ox 98 01/30/24 08:41 Oxygen Delivery Method Room Air 01/30/24 08:41 BMI result Body Mass Index 34.4 Tobacco/Smoking Status: Tobacco use Status Tobacco use date assessed 01/30/24 01/30/24 08:45 Patient Tobacco Use Status Former Tobacco user 01/30/24 08:45 Tobacco use type Cigarette 01/30/24 08:45 e-Cigarette/Vaping Use Never Used 01/30/24 08:45 PHQ-9: PHQ-9 Score PHQ-9: Total score 0 01/30/24 08:45 Depression Screening Interpretation: Negative Thrive Assessment: Date of Thrive Assessment Date Thrive assessed 02/24/23 01/30/24 08:45 Const General: cooperative, comfortable, no acute distress and alert Neck Neck: Yes no lymphadenopathy Thyroid: Thyroid normal Resp Effort & Inspection: normal respiratory effort Auscultation: clear to auscultation bilaterally Percussion: percussion normal Cardio Jugular venous distension: no JVD Palpation: normal PMI Rate: regular rate Rhythm: regular rhythm Heart sounds: S1 normal heart sound present and S2 normal heart sound present GI Inspection: Yes normal to inspection Palpation (GI): No hepatosplenomegaly present Skin General skin exam: no rashes or lesions noted Extrem General: Yes no clubbing, cyanosis or edema Coding Level of Care Code Est Pt Level 3 (84761) Diagnoses Type 2 diabetes mellitus with obesity E11.69; E66.9 Dyslipidemia E78.5 Additional Codes PHQ-9 - 24315 - PHQ-9 Billing: Yes ([id number]) Assessment & Plan Assessment & Plan (1) Type 2 diabetes mellitus with obesity: Code(s): E11.69 - Type 2 diabetes mellitus with other specified complication; E66.9 - Obesity, unspecified Category: Medical Plan: stable; same rx (2) Dyslipidemia: Code(s): E78.5 - Hyperlipidemia, unspecified Category: Medical Plan: stable; same rx Orders: Orders Lipid Panel Today Z13.220 - Encounter for screening for lipoid disorders Glucose Fasting Today R73.9 - Hyperglycemia, unspecified Hemoglobin A1c Today R73.9 - Hyperglycemia, unspecified
--- OUTSIDE RECORDS SUMMARY | 2024-01-30 08:45 | XMS_ITS ---
Author Organization [facility] Address [address] [place] [address] Care Team Providers Care Infrastructure Technician Name Role Phone Amaury Burk MD Primary Care Provider UnavailDipti Jernigan Unavailable [phone] REASON FOR VISIT DX not in LCD Encounters Encounter Location Date Provider Diagnosis [address] [address] 06/11/2023 Dipti Fountain Plan Of Treatment Next Appt Details Provider Name:Dipti A Александр , 04/12/2024 08:15:00 AM, [address] [place], [address], Progress Notes * Chema FAGAN PDOB:1955 (67 yo M)Acc No.[id number]:06/11/2023 Patient:?Chema Fagan :1955???Age:67 Y???Sex:Male Address:[address] [place] [address] * true * Date:? Generated for Printi ng/Faxing/eTransmitting on:?01/30/2024 08:45 AM EST
--- OUTSIDE RECORDS SUMMARY | 2024-01-30 08:45 | XMS_ITS ---
Author [facility] Address [address] [facility] [address] Care Team Providers Care Supervisor Bridges And Buildings Name Role Phone Bhargavi STEPHENSON, Amaury Primary Care Provider Unavaila ble Black, Dipti Unavailable [phone] Allergies Allergen (clinical drug ingredient) Drug/Non Drug [...] Ordered Date Performed Result Body Sit e 05550-QYYM SKIN LESIONS, 2 TO 4 04/14/2023 N/A 11305-TYDO NAIL(S) 04/14/2023 N/A Encounters Encounter Location Date Provider Diagnosis [facility] [address] [address] 04/14/2023 Dipti Александр Diabetes mellitus type 2, [...] Treatment Pending Test Test Name Order Date 23854-KNGS SKIN LESIONS, 2 TO 4 04/14/19 90436-MKXR NAIL(S) 04/14/2023 Next Appt Details Follow Up: 1 Year, Reason: Provider Name:Dipti Fountain , 04/12/2024 08:15:00 AM, [address] [facility] [place], [address], Procedure Notes * Category Sub-Category Detail Notes Keratoma Treatment Parring or Cutting o f Benign Hyperkeratotic Lesion(s) 75726 (2-4 Lesions) - The Benign hyperkeratotic lesions, as described above were pared, and/or cut utilizing a sterile #15 blade, tissue nippers, and/or dremel Nail Reduction Nail Reduction Trimming of non- dystrophic nails performed to reduce/remove overall nail length and girth, by manual and electrical means with use of a nail nipper and/or dremel, to more viable healthy nail plate or bed tissue 6-10 (12434) Progress Notes * Chema FAGAN PDOB:1955 (67 yo M)Acc No.[id number]:04/14/2023 Progress Note Patient:?Rylan, Chema P Provider:?Dipti Fountain DPM :1955???Age:67 Y???Sex:Male [place] e:04/14/2023 Address:[address] [place] [address] [facility] Pcp:Amaury Burk MD Subjective: * Chief Complaints: [...] status: . ?Occupation: retired- [employer]. * Medications:?TakingRosuvasta tin Calcium 40 MG Tablet [...] Procedures:?Keratoma Treatment:?Parring or Cutting of Benign Hyperkeratotic Lesion(s)?81420 (2-4 Lesions) - The Benign hyperkeratotic lesions, as described above were pared, and/or cut utilizing a sterile #15 blade, tissue nippers, and/or dremel.?Nail Reduction:?Nail Reduction?Trimming of non-dystrophic nails performed to reduce/remove overall nail length and girth, by manual and electrical means with use of a nail nipper and/or dremel, to more viable healthy nail plate or bed tissue 6-10 (86252).? * Procedure Codes:?77225 TRIM NAIL(S), Modifiers: XS 34158 TRIM SKIN LESIONS, 2 TO 4, Modifiers: [...] Fountain DPM Date:?2023 Generated for Emily jackson/Umu/Sharonda on:?01/30/2024 08:45 AM EST History and Physical Notes * [...]
--- OUTSIDE RECORDS SUMMARY | 2024-01-30 08:45 | XMS_ITS | Patient Health Record ---
Author Organization [facility] Address [address] [place] [address] Care Team Providers Care Dot Net Architect Name Role Phone Amaury Burk MD Primary Care Provider Unavaila ble Black, Dipti Unavailable [phone] Allergies Allergen (clinical drug ingredient) Drug/Non Drug [...] Problem Acquired hammer toe of right foot (4440208807443223 ) Other hammer toe(s) (acquired), right foot (M20.41) Active confirmed Problem Acquired hammer toe of left foot (4496377416192293 ) Other hammer toe(s) (acquired), left foot (M20.42) Active confirmed Problem Type II diabetes mellitus without complication (509336382) Diabetes mellitus type 2, diet-controll ed (E11.9) Active confirmed Vital Signs Blood pressure diastolic 68 mm Hg 04/14/2023 Height 5ft 10in in 04/14/2023 Blood pressure systolic 105 mm Hg 04/14/2023 Weight 230 lbs 04/14/2023 BMI 33 kg/m2 04/14/2023 Procedures Procedure Date Ordered Date Performed Result Body Sit e 66773-DMVZ SKIN LESIONS, 2 TO 4 04/14/2023 N/A 32521-NLKV NAIL(S) 04/14/2023 N/A Encounters Encounter Location Date Provider Diagnosis [facility] [place] [address] [place] [address] 04/14/2023 Dipti Black Diabetes mellitus type 2, diet-controlled E11.9 ; Other hammer toe(s) (acquired), left foot M20.42 ; Other hammer toe(s) (acquired), right foot M20.41 and Tinea pedis of both feet B35.3 [facility] [place] [address] [place] [address] 06/11/2023 Dipti Fountain Assessments Encounter Date Diagnosis [...] Treatment Pending Test Test Name Order Date 42967-UJAL SKIN LESIONS, 2 TO 4 05/23/19 18 97860-IWMB SKIN LESIONS, 2 TO 4 05/22/19 19 10472-YPHR SKIN LESIONS, 2 TO 4 04/02/19 22 29226-QSKO SKIN LESIONS, 2 TO 4 04/14/19 24 24726-TDHE NAIL(S) 04/14/2023 09991-NXFJ NAIL(S) 04/02/2021 84392-FFBW NAIL(S) 05/21/2018 15390-OZNC NAIL(S) 05/22/2015 61309-VGCD NAIL(S) 05/20/2016 09774-YCBK NAIL(S) 05/22/2017 Next Appt Details Provider Name:Dpiti Fountain , 04/12/2024 08:15:00 AM, [address] [place], [address], Insurance Providers Payer Name Payer Address Payer Phone Subscriber Number Group Number Insured Name Patient Relationship to Insured Coverage Start Date Coverage End Date Medicare [facility] [employer] [facility] [address] [place] [address] [id number] hCema Baker Self - patient is the insured [facility] [address] [place] [address] [id number] Chema Baker Self - patient is the insured Medical (General) History Medical History History ICD Code diabetic heart disease measles chicken pox Detached Retina Surgical History Surgery Date(Month/Year) appendectomy 1967 pin in broken arm 1977 automatic implantable cardioverter defib rillator (AICD) 08/2015 detached retina x2
== END 2024-01-30 09:01 | disposition home or self-care (01) ==
PROVIDERS: PCP Internal Medicine; Visit Provider Internal Medicine
DX: E11.69 Type 2 diabetes mellitus with other specified complication (principal); E66.9 Obesity, unspecified; E78.5 Hyperlipidemia, unspecified; Z68.34 Body mass index [BMI] 34.0-34.9, adult

== ENCOUNTER → 2024-01-30 08:39 | Outpatient (BNVA) | payer MEDICARE, OTHER, SELFPAY | PROVIDERS: PCP Internal Medicine; Visit Provider Internal Medicine | DX: E11.69 Type 2 diabetes mellitus with other specified complication (principal); E66.9 Obesity, unspecified; E78.5 Hyperlipidemia, unspecified | CPT/HCPCS: 96127; 99212 ==

== ENCOUNTER 2024-04-22 09:05 | Outpatient (REF) | payer MEDICARE, OTHER, SELFPAY ==
--- OUTSIDE RECORDS SUMMARY | 2024-04-22 10:03 | XMS_ITS ---
Author Organization [facility] Address [address] [place] [address] Care Team Providers Care It Infrastructure Architect Name Role Phone Amaury Burk MD Primary Care Provider Unavaila Dipti Bañuelos Unavailable [phone] REASON FOR VISIT DX not in LCD Encounters Encounter Location Date Provider Diagnosis [facility] [address] [place] [address] 06/11/2023 Dipti Fountain Plan Of Treatment Next Appt Details Provider Name:Dipti Ocampo Александр , 04/11/2025 08:15:00 AM, [address] [place], [address], Progress Notes * Chema FAGAN PDOB:1955 (67 yo M)Acc No.[id number]:06/11/2023 Patient:?Chema Fagan :1955???Age:67 Y???Sex:Male Address:[address] [place] [address] * true * Date:? Generated for Printi renetta/Umu/eTransmitting on:?04/22/2024 10:03 AM EST
--- OUTSIDE RECORDS SUMMARY | 2024-04-22 10:04 | XMS_ITS ---
Author Organization [facility] Address [address] [facility] [place] [address] Care Team Providers Care Bag Grader Name Role Phone Amaury Burk MD Primary Care Provider Unavaila ble Black, Dipti Unavailable [phone] Allergies Allergen (clinical drug ingredient) Drug/Non Drug [...] Ordered Date Performed Result Body Sit e 66261-CAXG SKIN LESIONS, 2 TO 4 04/14/2023 N/A 77535-DFXN NAIL(S) 04/14/2023 N/A Encounters Encounter Location Date Provider Diagnosis [facility] [address] [address] 04/14/2023 Dipti Александр Diabetes mellitus type 2, [...] Treatment Pending Test Test Name Order Date 37946-CMIN SKIN LESIONS, 2 TO 4 04/14/19 03861-HNDV NAIL(S) 04/14/2023 Next Appt Details Follow Up: 1 Year, Reason: Provider Name:Dipti Fountain , 04/11/2025 08:15:00 AM, [address] [place], [address], Procedure Notes * Category Sub-Category Detail Notes Keratoma Treatment Parring or Cutting o f Benign Hyperkeratotic Lesion(s) 81995 (2-4 Lesions) - The Benign hyperkeratotic lesions, as described above were pared, and/or cut utilizing a sterile #15 blade, tissue nippers, and/or dremel Nail Reduction Nail Reduction Trimming of non- dystrophic nails performed to reduce/remove overall nail length and girth, by manual and electrical means with use of a nail nipper and/or dremel, to more viable healthy nail plate or bed tissue 6-10 (82440) Progress Notes * Chema FAGAN PDOB:1955 (67 yo M)Acc No.[id number]:04/14/2023 Progress Note Patient:?Chema Fagan P Provider:?Dipti Fountain DPM :1955???Age:67 Y???Sex:Male Hudson e:04/14/2023 Address:[address] [place] [address] [place], [facility] Pcp:Amaury Burk MD Subjective: * Chief Complaints: [...] status: . ?Occupation: retired- [employer]. * Medications:?TakingRosuvasta tin Calcium 40 MG Tablet [...] 6.9 * Examination: ???Ophthalmology Referral: ?DIABETES EYE EXAM?Diabetic Retinopathy Screening:?Yes ?Findings of Diabetic Eye Exam:?no retinopathy?General Examination: ?GENERAL APPEARANCE:?Reveals a pleasant, alert, well nourished, well developed, well hydrated individual, who demonstrates proper attention to hygene/body habitus, and is in no acute distress.?ORIENTED:?person, place, and time.?FOOT EXAM:?Lower Extremity Neurological Exam performed:?Yes ?Visual exam of foot performed:?Yes ?Date?04/14/2023 ?Sensory testing performed:?sensations normal ?Sensory and motor testing performed:?sensations and strength normal ?Pedal pulse taking performed:?2+?Neurological: ?SENSORY:?Neurological exam reveals intact sensorium, pain sensation [...] Procedures:?Keratoma Treatment:?Parring or Cutting of Benign Hyperkeratotic Lesion(s)?01004 (2-4 Lesions) - The Benign hyperkeratotic lesions, as described above were pared, and/or cut utilizing a sterile #15 blade, tissue nippers, and/or dremel.?Nail Reduction:?Nail Reduction?Trimming of non-dystrophic nails performed to reduce/remove overall nail length and girth, by manual and electrical means with use of a nail nipper and/or dremel, to more viable healthy nail plate or bed tissue 6-10 (50268).? * Procedure Codes:?90501 TRIM NAIL(S), Modifiers: XS 02967 TRIM SKIN LESIONS, 2 TO 4, Modifiers: [...] Fountain DPM Date:?2023 Generated for Emily jackson/Umu/Sharonda on:?04/22/2024 10:03 AM EST History and Physical Notes * [...] Eye Exam:: no retin opathy Vascular DP PULSES (B): 2/4, B/L PT PULSES (B): 3/4, B/L CAPILLARY FILL TIME: immediate, all digi ts, B/L TEMPERTURE GRADIENT (C): normal, warm to cool, proximal to distal, B/L, B/L TROPHIC CONDITION-TEXTURE/ELASTICITY/TURGOR/HAIR GROWTH (B): normal, B/L EDEMA (C): absent, B/L PIGMENTATION: normal, B/L Nails NAILS are: nondystrophic, 1-5 B/L
--- OUTSIDE RECORDS SUMMARY | 2024-04-22 10:04 | XMS_ITS | Patient Health Record ---
Author Organization [facility] Address [address] [place] [address] Care Team Providers Care Intake Assessor Name Role Phone Bhargavi STEPHENSON, Amaury Primary Care Provider Unavaila ble Black, Dipti Unavailable [phone] Allergies Allergen (clinical drug ingredient) Drug/Non Drug Allergy documented on EMR Reaction Allergy Type Onset Date Status succinylcholine succinol anectine (uncoded) hyperthermia Allergy Active Results Component Value Reference Range Notes HEMOGLOBIN A1C (GLYCOHEMOGLO BIN) Reviewed date:04/12/2024 08:13:10 AM Interpretation: Performing Lab: Notes/Report: HEMOGLOBIN A1C % (HH) 6.7 Reason For Referral No Information Medications Medication SIG (Take, Route, Frequency, Duration) Notes Start Date End Date Status Januvia Active Ciclopirox Olamine 0.77 % 1 application Externally Twice a day to skin of feet including between the toes for 30 days Active Entresto 24-26 MG 1 tablet Orally Twic e a day for 30 day(s) valsartan Active Aspirin 81 MG 1 tablet Orally Once a day for 30 day(s) Active Carvedilol 12.5 MG 1 tablet with food Orally Twice a day Active metFORMIN HCl 1000 MG 1 tablet with meal s Orally Twice a day Active Atorvastatin Calcium 40 MG 1 tablet Orally Once a day for 30 day(s) Not-Taking Ciclopirox Olamine 0.77% external Apply to effected areas twice a day for 30 days PRN 05/16/2014 Not-Taking Rosuvastatin Calcium 40 MG 1 tablet Orally Once a day Active Irbesartan 150 MG 1 tablet Orally Once a day for 30 day(s) Not-Taking Immunizations Vaccine Route Administration Date Status Comme nts COVID-19 Pfizer BioNTech Vaccine Unknown 11/25/2020 Administered First Dose: 04/20/2020 Second Dose: 05/11/2020 Influenza Unknown 05/22/2015 Administered Influenza Unknown 12/04/2015 Administered Influenza Unknown 10/18/2017 Administered Influenza Unknown 11/18/2020 Administered Influenza Unknown 10/18/2022 Administered Social History Tobacco Use: Social History Observation Description Date Details (start date - stop date) Never Smoker NA - NA Tobacco use other than smoking: Question Answer Notes Are you an other tobacco user? No Tobacco Control (Standard) Question Answer Notes Tobacco use: Nonsmoker Additional Findings: Tobacco non-user Current no nsmoker AUDIT-C (Standard) Question Answer Notes Did you have a drink containing alcohol in the p ast year? No Points 0 Interpretation Negative Problems Problem Type SNOMED Code ICD Code Onset Dates Problem Status W/U Status Risk Notes Problem Acquired hammer toe of right foot (5602888822808191 ) Other hammer toe(s) (acquired), right foot (M20.41) Active confirmed Problem Acquired hammer toe of left foot (4453426549332902 ) Other hammer toe(s) (acquired), left foot (M20.42) Active confirmed Problem Type II diabetes mellitus without complication (265272999) Diabetes mellitus type 2, diet-controll ed (E11.9) Active confirmed Vital Signs Blood pressure diastolic 80 mm Hg 04/12/2024 Height 5ft 10in in 04/12/2024 Blood pressure systolic 120 mm Hg 04/12/2024 Weight 230 lbs 04/12/2024 BMI 33 kg/m2 04/12/2024 Encounters Encounter Location Date Provider Diagnosis [facility] [address] [address] 04/12/2024 Dipti Fountain Diabetes mellitus type 2, diet-controlled E11.9 ; Tinea pedis of both feet B35.3 ; Other hammer toe(s) (acquired), right foot M20.41 and Other hammer toe(s) (acquired), left foot M20.42 [facility] [address] [address] 06/11/2023 Dipti Fountain Assessments Encounter Date Diagnosis (ICD Code) Assessment Notes Treatment Notes Treatment Clinical Notes Section Notes 04/12/2024 Diabetes mellitus type 2, diet-controlled (ICD-10 - E11.9) 04/12/2024 Tinea pedis of both feet (ICD-10 - B35.3) 04/12/2024 Other hammer toe(s) (acquired), right foot (ICD-10 - M20.41) Patient Educated with: DIABETIC FOOT CARE INSTRUCTIONS.p df (DIABETIC FOOT CARE INSTRUCTIONS.p df) 04/12/2024 Other hammer toe(s) (acquired), left foot (ICD-10 - M20.42) Plan Of Treatment Pending Test Test Name Order Date 60354-SJVY SKIN LESIONS, 2 TO 4 05/23/19 18 15261-YWLU SKIN LESIONS, 2 TO 4 05/22/19 19 44722-DDSO SKIN LESIONS, 2 TO 4 04/02/19 22 97915-VJFR SKIN LESIONS, 2 TO 4 04/14/19 24 95471-NPPZ NAIL(S) 04/14/2023 01592-EYGN NAIL(S) 04/02/2021 26695-FIVW NAIL(S) 05/21/2018 52442-MBSF NAIL(S) 05/22/2015 21625-GWJC NAIL(S) 05/20/2016 35959-BLAB NAIL(S) 05/22/2017 Next Appt Details Provider Name:Dipti Fountain , 04/11/2025 08:15:00 AM, [address] [place], [address], Insurance Providers Payer Name Payer Address Payer Phone Subscriber Number Group Number Insured Name Patient Relationship to Insured Coverage Start Date Coverage End Date Medicare [facility] [address] [place] [address] [id number] Chema Baker Self - patient is the insured for Life [address] [place] [id number] Chema Baker Self - patient is the insured Medical (General) History Medical History History ICD Code diabetic heart disease measles chicken pox Detached Retina Surgical History Surgery Date(Month/Year) appendectomy 1967 pin in broken arm 1977 automatic implantable cardioverter defib rillator (AICD) 08/2015 detached retina x2
--- OUTSIDE RECORDS SUMMARY | 2024-04-22 10:04 | XMS_ITS ---
[facility] Address [address] [place] [address] Care Team Providers Care Technology Applications Engineer Name Role Phone Amaury Burk MD Primary Care Provider Unavaila ble Black, Dipti Unavailable [phone] Allergies Allergen (clinical drug ingredient) Drug/Non Drug Allergy documented on EMR Reaction Allergy Type Onset Date Status succinylcholine succinol anectine (uncoded) hyperthermia Allergy Active REASON FOR VISIT At Risk Footcare, Skin Problem, Toe Irritation Medications Medication SIG (Take, Route, Frequency, Duration) Notes Start Date End Date Status Carvedilol 12.5 MG 1 tablet with food Orally Twice a day Active metFORMIN HCl 1000 MG 1 tablet with meal s Orally Twice a day Active Atorvastatin Calcium 40 MG 1 tablet Orally Once a day for 30 day(s) Not-Taking Ciclopirox Olamine 0.77% external Apply to effected areas twice a day for 30 days PRN 05/16/2014 Not-Taking Irbesartan 150 MG 1 tablet Orally Once a day for 30 day(s) Not-Taking Januvia Active Ciclopirox Olamine 0.77 % 1 application Externally Twice a day to skin of feet including between the toes for 30 days Active Entresto 24-26 MG 1 tablet Orally Twic e a day for 30 day(s) valsartan Active Aspirin 81 MG 1 tablet Orally Once a day for 30 day(s) Active Rosuvastatin Calcium 40 MG 1 tablet Orally Once a day Active Social History Tobacco Use: Social History [...] ast year? No Points 0 Interpretation Negative Vital Signs Height 5ft 10in in 04/12/2024 Weight 230 lbs 04/12/2024 BMI 33 kg/m2 04/12/2024 Blood pressure systolic 120 mm Hg 04/12/19 25 Blood pressure diastolic 80 mm Hg 025 Encounters Encounter Location Date Provider Diagnosis [facility] [place] [address] [place] [address] 04/12/2024 Dipti Fountain Diabetes mellitus type 2, diet-controlled E11.9 ; Tinea pedis of both feet B35.3 ; Other hammer toe(s) (acquired), right foot M20.41 and Other hammer toe(s) (acquired), left foot M20.42 Assessments Encounter Date Diagnosis (ICD Code) Assessment [...] foot (ICD-10 - M20.42) Plan Of Treatment Medication Medication Name Sig Start Date Stop Date Notes Ciclopirox Olamine 0.77 % 1 application Externally Twice a day to skin of feet including between the toes for 30 days Treatment Notes Assessment Notes Other hammer toe(s) (acquired), right fo ot Patient Educated with: DIABETIC FOOT CARE INSTRUCTIONS.pdf (DIABETIC FOOT CARE INSTRUCTIONS.pdf) Next Appt Details Follow Up: 1 Year, Reason: Provider Name:Dipti Fountain , 04/11/2025 08:15:00 AM, [address] [place], [address], Progress Notes * Chema FAGAN PDOB:1955 (68 yo M)Acc No.[id number]:04/12/2024 Progress Note Patient:?Chema FAGAN Provider:?Dipti Fountain DPM :1955???Age:68 Y???Sex:Male [place] e:04/12/2024 Address:[address] [place], [place] [id number] Pcp:Amaury Burk MD Subjective: * Chief Complaints: * ???At Risk FootcareSkin Prob lemToe Irritation * HPI: ???At Risk footcare:?Pt States Last PCP Visit:?Date?12/19/2023 ???Skin problems:?Nature:?scaling , redness.?Location:?B/L .?Duration:?, several months.?Course:?, intermittent.?Treatments:?Medication (Ciclopirox Olamine 0.77 Cream) and gold bonds powder.?Toe pain:?Location:?B/L feet.?Duration:?several years.?Course:?worse.?Aggravated by:?shoes, any pressure.?Treatments:?change in shoes.? * ROS:?General/Constitutional:?Nausea?denies.?Vomiting?denies.?Hunger Thirst?denies.?Loss appetite?denies.?Chills?denies.?Fatigue?denies.?Fever?denies.?Night Sweats?denies.?Unexplained weight loss?denies.?Ophthalmologic:?Blurred vision?denies.?Red eye?denies.?HEENTM:?Dentures?denies.?Dizziness?denies.?Glasses/contacts?admits.?Retinopathy?den ies.?Blurred/double vision?denies.?TMJ?denies.?Discharge/drainage?denies.?Implants?denies.?Hard of hearing admits.?Difficulty chewing/swallowing/speaking?denies.?Nose bleeds?denies.?Sore mouth?denies.?Swollen glands?denies.?Respiratory:?On O xygen?denies.?Pneumonia/pleurisy?denies.?Bronchitis?denies.?Emphysema?denies.?Co ughing?denies.?Cough blood?denies.?Shortness of breath?denies.?Wheezing?denies.?Cardiovascular:?Pacemaker?denies.?MVP?denies.?WPW?denies.?CHF?denies.?Heart attack?admits.?Septal defect?denies.?Rapid beat?denies.?Chest pain ?denies.?Atrial Fib.?denies.?Murmur/Palpitations?denies.?Gastrointestinal:?Hemorrhoids?denies.?Stomach/Abdominal pain?denies.?Dark blood stool?denies.?Irritable bowel ?denies.?Constipation?denies.?Diarrhea?denies.?Vomiting?denies.?Hematology:?Swelling?denies.?Bruising?denies.?Bleeding problem?denies.?Genitourinary:?Blood urine?denies.?Frequent/Painfu/urination/bladder control?denies.?Kidney stones?denies.?Infection (UTI)?denies.?Nephropathy?denies.?Musculoskeletal:?Hammertoes?denies.?Bunions?denies.?Scoliosis/kyphosis?denies.?Muscle cramps / walking?denies.?Generalized aches and pains?denies.?Weakness?denies.?Integ.:?Day?denies.?Scars?admits.?Corns/calluses?denies.?Ingrown nails?denies.?Painful nails?denies.?Rashes?denies.?Neurologic:?Difficulty sleeping?denies.?Bipolar?denies.?Brain disorder?denies.?Balance t rouble?denies.?Confusion?denies.?Fainting/blackouts?denies.?Headache?denies.?Masoud mors?denies.? * Medical History:? * Surgical History:?appendecto my 1968pin in broken arm 1978automatic implantable cardioverter defibrillator (AICD) 08/2015detached retina x2 * Hospitalization/Major Diagno stic Procedure:?Denies Past Hospitalization * Family History:?Mother: dece ased, congestive heart failure.?Father: , congestive heart failure.? Pt denies family history. * Social History:?Tobacco Use:?Tobacco use other than smoking?Are you an other tobacco user??No ?Tobacco Control (Standard)?Tobacco use:?Nonsmoker ?Additional Findings: Tobacco non-user?Current nonsmoker ???Drugs/Alcohol:?Drugs?Have you used drugs other than those for medical reasons in the past 12 months??No ???Miscellaneous:?Caffeine: yes, frequency: , 2-3 cups per day. ?Children: yes. ?Exercise: yes, walking, hiking. ?Marital status: . ?Occupation: retired- [employer]. ???Drug/Alcohol:?AUDIT-C (Standard)?Did you have a drink containing alcohol in the past year??No ?Points?0 ?Interpretation?Negative * Medications:?TakingRosuvasta tin Calcium 40 MG Tablet 1 tablet Orally Once a day Januvia Entresto 24-26 MG Tablet 1 tablet Orally Twice a day , Notes to Pharmacist: valsartanAspirin 81 MG Tablet Chewable 1 tablet Orally Once a day Carvedilol 12.5 MG Tablet 1 tablet with food Orally Twice a day metFORMIN HCl 1000 MG Tablet 1 tablet with meals Orally Twice a day Taking Rosuvastatin Calcium 40 MG Tablet 1 tablet Orally Once a day Taking Januvia Taking Entresto 24-26 MG Tablet 1 tablet Orally Twice a day , Notes to Pharmacist: valsartanTaking Aspirin 81 MG Tablet Chewable 1 tablet Orally Once a day Taking Carvedilol 12.5 MG Tablet 1 tablet with food Orally Twice a day Taking metFORMIN HCl 1000 MG Tablet 1 tablet with meals Orally Twice a day Not-Taking/PRNAtorvastatin Calcium 40 MG Tablet 1 tablet Orally Once a day Ciclopirox Olamine 0.77% Cream external Apply to effected areas twice a day , Notes to Pharmacist: PRNIrbesartan 150 MG Tablet 1 tablet Orally Once a day Medication List reviewed and reconciled with the patientNot-Taking/PRN Atorvastatin Calcium 40 MG Tablet 1 tablet Orally Once a day Not-Taking/PRN Ciclopirox Olamine 0.77% Cream external Apply to effected areas twice a day , Notes to Pharmacist: PRNNot- Taking/PRN Irbesartan 150 MG Tablet 1 tablet Orally Once a day Medication List reviewed and reconciled with the patient * Allergies:?succinol anectine : hyperthermiayes[Allergies Verified] Objective: * Vitals:?Ht:5ft 10in, Wt:230, BMI:33, Shoe size:10, BP:120/80mm Hg, BS:127, Ht- cm: 177.8 cm, Wt-k.33 kg. * ???Past Orders: ???Lab:HEMOGLOBIN A1C (GLYCO HEMOGLOBIN) (Order Date - 03/22/2024) (Collection Date & Time - 04/12/2024 08:12 AM) ? Value Reference Range ?HEMOGLOBIN A1C % (HH) 6.7 * Examination: ???Ophthalmology Referral: ?DIABETES EYE EXAM?Procedure Performed:?Yes ?Date of Exam Performed?03/22/2024 ?Diabetic Retinopathy Screening:?Yes ?Retinal Screening Performed:?Yes ?Findings of Diabetic Eye Exam:?no retinopathy?General Examination: ?GENERAL APPEARANCE:?Reveals a pleasant, alert, well nourished, well developed, well hydrated individual, who demonstrates proper attention to hygene/body habitus, and is in no acute distress.?ORIENTED:?person, place, and time.?FOOT EXAM:?Lower Extremity Neurological Exam performed:?Yes ?Visual exam of foot performed:?Yes ?Date?04/12/2024 ?Sensory testing performed:?sensations normal ?Sensory and motor testing performed:?sensations and strength normal ?Pedal pulse taking performed:?2+ ?Footwear Evaluation?Footwear Evaluation performed:?Yes?Neurological: ?SENSORY:?Neurological exam reveals intact sensorium, pain sensation normal, vibration sensation intact, pinprick sensation is normal in the lower extremities, Pt denies, anesthesia, burning, paresthesia, tingling, B/L,5.07 monofilament test performed at plantar aspects of 5 varied sites per foot shows sensation,normal,B/L.?Vascular: ?DP PULSES (B):?2/4, B/L.?PT PULSES (B):?3/4, B/L.?CAPILLARY FILL TIME:?immediate, all digits, B/L.?TROPHIC CONDITION-TEXTURE/ELASTICITY/TURGOR/HAIR GROWTH (B):?normal, B/L.?TEMPERTURE GRADIENT (C):?normal, warm to cool, proximal to distal, B/L, B/L.?PIGMENTATION:?normal, B/L.?EDEMA (C):?absent, B/L.?Nails: ?NAILS are:?, Elongated, overgrown, nondystrophic, TA, T1, T2, T3, T4, T5, T6, T7, T8, T9.?Dermatologic: ?SKIN FINDINGS:?Skin shows sign(s) of, minor? inflammation, interdigital maceration, dryness and , pruritus, 4th interspace left.?Orthopedic: ?DIGITAL DEFORMITIES:?Digital contracture, PIPJ, 2-5 B/L, incompl-reducible to push-up test, no over, nor underlapping,?there is?evidence of shoe producing skin irritation.?FOOTWEAR:?, Non-Diabetic with no OT.? Assessment: * Assessment: 1.?Diabetes mellitus type 2, diet-controlled - E11.9 (Primary)???2.?Tinea pedis of both feet - B35.3???3.?Other hammer toe(s) (acquired), right foot - M20.41???Specify :Chronic problem, Worse???4.?Other hammer toe(s) (acquired), left foot - M20.42???Specify :Chronic problem, Worse??? Plan: * Treatment: 2.?Other hammer toe(s) (acqu ired), right foot? Notes: Patient Educated with: DIABETIC FOOT CARE INSTRUCTIONS.pdf (DIABETIC FOOT CARE INSTRUCTIONS.pdf)?? * Procedure Codes:?3044F HG A1 C LEVEL LT 7.0% * Preventive Medicine:? ??Counseling:?Discussion:?-14: Office or other [...] No treatment at all, Rest, Ice, New/supportive/wider/deeper Shoe gear, Digital Padding/Strapping/Taping/Bracing/Gel protective sleeves, Foot/Ankle AFO Bracing, [...] were discussed and the patients questions re: shoe gear, padding, custom vs prefabricated inserts, activity level, and consistency in home treatment regimens for optimal success were answered to their verbally confirmed satisfaction, Recomm, rest, ice, proper shoegear, padding, orthotics, anti-inflammatories or tylenol as tolerated, topical analgesics, cortisone injections.?Shoe Gear Counseling:?SHOE Rx - The patient was counseled in great detail on their muscoloskeletal foot and toe deformities which coincided with the dermatological presentations visualized on exam. We discussed how their deformities put the integrity of their feet at risk for potential pedal complications which makes the accomidative diabetic shoes and cutomizable inserts medically necessary. We discussed the different shoe and insert treatment types and options, as well as the important advantages for adhering to regularly wearing these accomidative devices daily. The patient was made aware of the fact that a failure to abide by these recommedations may be deleterious to their foot health as they are able to prevent many pedal complications such as skin irritation, skin ulceration, infection, and even loss of toe/foot/leg/or life. Time was also spent with the patient dispensing and discussing proper diabetic footcare techniques including daily skin moisturization, daily foot inspection for any interruption in skin integrity including open lesions, or sign of infection such as redness/malodor/drainage/swelling. Also discussed and recommended were procedures regarding daily shoe inspection for the presence of internal foreign bodies as well as any visualized irregular shoe or insert wear. Patient questions re: shoes, inserts, and self foot inspections were answered to their satisfaction as the patient verbally confirmed a full understanding of the above information, Patient DEFERS recommended Extra Depth Orthopedic pressure-accommodative shoes against medical advice.?Tinea Pedis:?The patient was counseled on the diagnosis, [...] skin creams to their feet as directed. Rx was sent to their pharmacy at the time of visit.? ??Screening/Special Tests:?Fall Risk?Screening:?No falls in the past year ?FALLS: Screening for Future Fall Risk?Have you had any falls with injury in the past year??No * Follow Up:?1 Year * Images: * Sign off status: Completed true * Provider:?Dipti Fountain DPM Date:?2024 Generated for Emily jackson/Umu/Sharonda on:?04/22/2024 10:03 AM EST History and Physical Notes * HPI (History of Present Illness) Category Sub-Category Detail Notes Category Not es Toe pain Location: B/L feet Duration: several years Course: worse Aggravated by: shoes, any pressure Treatments: change in shoes Skin problems Nature: scaling , redness Location: B/L Duration: , several months Course: , intermittent Treatments: Medication (Ciclopir ox Olamine 0.77 Cream) and gold bonds powder At Risk footcare Pt States Last PCP Visit: Date: 4 Examination Category Sub-Category Detail Notes Category Not es Neurological SENSORY: Neurological exa m reveals intact sensorium, pain sensation normal, vibration sensation intact, pinprick sensation is normal in the lower extremities, Pt denies, anesthesia, burning, paresthesia, tingling, B/L, 5.07 monofilament test performed at plantar aspects of 5 varied sites per foot shows sensation, normal, B/L Dermatologic SKIN FINDINGS: Skin shows sign( s) of, minor inflammation, interdigital maceration, dryness and , pruritus, 4th interspace left Orthopedic FOOTWEAR: , Non-Diabetic with no OT DIGITAL DEFORMITIES: Digital contracture , PIPJ, 2-5 B/L, incompl-reducible to push-up test, no over, nor underlapping, there is evidence of shoe producing skin irritation General Examination GENERAL APPEARANCE: Reveals a pleasant, alert, well nourished, well developed, well hydrated individual, who demonstrates proper attention to hygene/body habitus, and is in no acute distress FOOT EXAM: Lower Extremity Neurological Exa m performed:: Yes Visual exam of foot performed:: Yes Date: 04/12/2024 Sensory testing performed:: sensations n ormal Sensory and motor testing performed:: se nsations and strength normal Pedal pulse taking performed:: 2+ ORIENTED: person, place, and t jorge Footwear Evaluation Footwear Evaluation performe d:: Yes Ophthalmology Referral DIABETES EYE EXAM Procedure Perform ed:: Yes ?Date of Exam Performed: 03/22/2024 Diabetic Retinopathy Screening:: Yes Retinal Screening Performed:: Yes Findings of Diabetic Eye Exam:: no retin opathy Vascular DP PULSES (B): 2/4, B/L PT PULSES (B): 3/4, B/L CAPILLARY FILL TIME: immediate, all digi ts, B/L TEMPERTURE GRADIENT (C): normal, warm to cool, proximal to distal, B/L, B/L TROPHIC CONDITION-TEXTURE/ELASTICITY/TURGOR/HAIR GROWTH (B): normal, B/L EDEMA (C): absent, B/L PIGMENTATION: normal, B/L Nails NAILS are: , Elongated, ove rgrown, nondystrophic, TA, T1, T2, T3, T4, T5, T6, T7, T8, T9
[2024-04-22 11:02] LABS: Cholesterol 109 mg/dL (<200); Glucose Fasting 119 mg/dL (60-99); HDL Cholesterol 36 mg/dL (>40); LDL Cholesterol Calculated 49 mg/dL (<100); Triglycerides 122 mg/dL (<150)
[2024-04-22 11:14] LABS: Estimated Average Glucose 151 mg/dL; Hemoglobin A1C 171.5775 umol/L; Hemoglobin A1c % 6.9 % (<6.0); Total Hemoglobin (HGBA1C) 3323.5167 umol/L
== END 2024-04-22 09:06 | disposition home or self-care (01) ==
LOC: HO.HMGCLDS 09:05
PROVIDERS: PCP Internal Medicine; Visit Provider Internal Medicine
DX: Z13.6 Encounter for screening for cardiovascular disorders (principal); R73.9 Hyperglycemia, unspecified
CPT/HCPCS: 36415; 80061; 82947; 83036

== ENCOUNTER 2024-04-30 08:37 | Outpatient (AMB) | payer MEDICARE, OTHER, SELFPAY ==
[2024-04-30 08:44] VITALS: BP 110/60; PULSE 64; O2SAT 96; BMI 34.9
--- NOTE | 2024-04-30 08:44 | MHC.PC.OV ---
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 Accompanied by: Self / Same As Patient Allergies succinylcholine [SUCCINYLCHOLINE] Allergy (Severe, Verified 04/30/24 08:45) JAW RIGIDITY lisinopril [LISINOPRIL] Allergy (Intermediate, Verified 04/30/24 08:45) COUGH Medication List - Last Reconciled 04/30/24 by Amaury Burk MD aspirin (Adult Low Dose Aspirin) 81 mg PO DAILY blood sugar diagnostic (FreeStyle Lite Strips) As directed two times a day blood-glucose meter (FreeStyle Dewy Rose Lite kit) As directed carvedilol 12.5 mg PO BID clotrimazole-betamethasone 1-0.05 % 1 appl topical BID 2 weeks doxycycline hyclate 200 mg (2 x 100 mg) PO ONCE lancets (FreeStyle Lancets) As directed twice a day metformin 1,000 mg (2 x 500 mg) PO BID 90 days rosuvastatin 40 mg PO QPM 90 days sacubitril-valsartan 24-26 mg 1 tab PO BID sitagliptin phosphate (Januvia) 100 mg PO DAILY Tobacco use date assessed: 04/30/24 Fall risk assessment: No Falls in past year Last assessed Fall Risk: 04/30/24 Dental Screening Dental Screen Date: 04/30/24 Did you have a dental visit in the last 12 months?: Yes Did you have a dental problem in the last 6 months where you did not have access to dental care?: No Was dental information given to patient?: Patient has dentist HPI 3mth f/u HPI Details DM and CAD; doing well; compliant [facility] Medical History (Updated 11/25/23 @ 08:29 by Bev Marley PA-C) Type 2 diabetes mellitus with obesity CAD (coronary artery disease) History of SC (myocardial infarction) Secondary diabetes mellitus with hyperlipidemia Subclinical hypothyroidism Obesity (BMI 30-39.9) Hypertension Dyslipidemia Diabetes mellitus Surgical History History of carpal tunnel surgery History of surgery History of implantable cardiac defibrillator (ICD) H/O thumb surgery History of elbow surgery History of vasectomy History of appendectomy Family History Father CAD (coronary artery disease) Diabetes Mother CAD (coronary artery disease) Brother CAD (coronary artery disease) S/P CABG x 2 Social History Housing: House Alcohol intake: current Alcohol intake frequency: a few times a month Patient Tobacco Use Status: Former Tobacco user Tobacco use type: Cigarette e-Cigarette/Vaping Use: Never Used Second Hand Smoke Exposure: No Substance Use Type: Former Substance User and Marijuana service: Yes Current occupational status: retired Current occupation: right handed Current occupational exposures/hazards: No Cognitive needs: No Hearing needs: No Vision needs: Yes Questionnaire PHQ-9 Over the last 2 weeks, how often have you been bothered by any of the following problems? 1. Little interest or pleasure in doing things: not at all 2. Feeling down, depressed, or hopeless: not at all 3. Trouble falling or staying asleep, or sleeping too much: not at all 4. Feeling tired or having little energy: not at all 5. Poor appetite or overeating: not at all 6. Feeling bad about yourself - or that you are a failure or have let yourself or your family down: not at all 7. Trouble concentrating on things, such as reading the newspaper or watching television: not at all 8. Moving or speaking so slowly that other people could have noticed. Or the opposite - being so fidgety or restless that you have been moving around a lot more than usual: not at all 9. Thoughts that you would be better off or of hurting yourself in some way: not at all Total score: 0 Depression Screening Interpretation: Negative Depression Screening Done: Yes 60781 - PHQ-9 Billing: Yes Source: Developed by Drs. Martir Elliott, Alice Clifford, Alvin Zhang and colleagues, with an educational andrade from [employer]. Thrive Questionnaire Date Thrive assessed: 04/30/24 I am a: Patient What is your living situation today?: I have a steady place to live Within the past 12 months, did the food you bought not last and you didn't have the money to get more?: Never true Within the past 12 months, did you worry whether your food would run out before you got money to buy more?: Never true Do you have trouble paying for medicines?: No Do you have trouble getting transportation to medical appointments?: No Do you have trouble paying your heating and electricity bill?: No Do you have trouble taking care of your child, family member or friend?: No Do you have trouble with day-to-day activities such as bathing, preparing meals, shopping, managing finances, etc.?: No Are you currently unemployed and looking for a job?: No Are you interested in more education?: No Please select the resources that you would like help with: None Currently or been in a relationship where the following occur: No concerns reported THRIVE Score: 0 AUDIT C Alcohol Use Questionnaire (AUDIT-C) 1. How often do you have a drink containing alcohol?: Monthly or less 2. How many drinks containing alcohol do you have on a typical day when you are drinking?: 1 or 2 3. How often do you have six or more drinks on one occasion?: Never Total Score: 1 TOMASZ-7 AMB Questionnaire TOMASZ-7 Date TOMASZ - 7 assessed: 04/30/24 Feeling nervous, anxious, or on edge: 0 = Not at all Not being able to stop or control worryin = Not at all Worrying too much about different things: 0 = Not at all Trouble relaxin = Not at all Being so restless that it is hard to sit still: 0 = Not at all Becoming easily annoyed or irritable: 0 = Not at all Feeling afraid as if something awful might happen: 0 = Not at all Total TOMASZ-7 score (0-4 normal; 5-9 mild; 10-14 moderate; 15-21 severe): 0 Source: Developed by Drs. Martir Elliott, Alice Clifford, Alvin Zhang and colleagues, with an educational andrade from [employer]. Review of Systems Const Denies chills, Denies headache(s) and Denies weight loss ENT Denies headache(s) Card Denies chest pain, Denies syncope, Denies irregular heart rhythm and Denies dyspnea Resp Denies chest congestion, Denies cough and Denies dyspnea GI Denies abdominal pain, Denies change in stool character, Denies nausea and Denies vomiting Musc Denies deformity and Denies joint swelling Neuro Denies syncope and Denies headache(s) Physical exam (Primary Care) Vital Signs: Last Vital Signs Pulse 64 04/30/24 08:44 BP 110/60 04/30/24 08:44 Pulse Ox 96 04/30/24 08:44 Oxygen Delivery Method Room Air 04/30/24 08:44 BMI result Body Mass Index 34.9 Tobacco/Smoking Status: Tobacco use Status Tobacco use date assessed 04/30/24 04/30/24 08:49 Patient Tobacco Use Status Former Tobacco user 04/30/24 08:49 Tobacco use type Cigarette 04/30/24 08:49 e-Cigarette/Vaping Use Never Used 04/30/24 08:49 PHQ-9: PHQ-9 Score PHQ-9: Total score 0 04/30/24 09:47 Depression Screening Interpretation: Negative Thrive Assessment: Date of Thrive Assessment Date Thrive assessed 04/30/24 04/30/24 08:49 Currently or been in a relationship where the following occur: No concerns reported Const General: cooperative, comfortable, no acute distress and alert Neck Neck: Yes no lymphadenopathy Thyroid: Thyroid normal Resp Effort & Inspection: normal respiratory effort Auscultation: clear to auscultation bilaterally Percussion: percussion normal Cardio Jugular venous distension: no JVD Palpation: normal PMI Rate: regular rate Rhythm: regular rhythm Heart sounds: S1 normal heart sound present and S2 normal heart sound present GI Inspection: Yes normal to inspection Palpation (GI): No hepatosplenomegaly present Skin General skin exam: no rashes or lesions noted Extrem General: Yes no clubbing, cyanosis or edema Coding Level of Care Code Est Pt Level 3 (32314) Diagnoses CAD (coronary artery disease) I25.10 Type 2 diabetes mellitus with obesity E11.69; E66.9 Additional Codes PHQ-9 - 33764 - PHQ-9 Billing: Yes ([id number]) Assessment & Plan Assessment & Plan (1) CAD (coronary artery disease): Code(s): I25.10 - Atherosclerotic heart disease of [place] coronary artery without angina pectoris Category: Medical Plan: cont per cardiology (2) Type 2 diabetes mellitus with obesity: Code(s): E11.69 - Type 2 diabetes mellitus with other specified complication; E66.9 - Obesity, unspecified Category: Medical Plan: stable; same rx Medications: Refilled clotrimazole-betamethasone 1-0.05 % 1 appl topical BID 45 grams 0RF 2 weeks
--- OUTSIDE RECORDS SUMMARY | 2024-04-30 08:51 | XMS_ITS ---
Author Organization [facility] Address [address] [place] [address] Care Team Providers Care Geography Head Name Role Phone Amaury Burk MD Primary Care Provider Unavaila Dipti Bañuelos Unavailable [phone] REASON FOR VISIT DX not in LCD Encounters Encounter Location Date Provider Diagnosis [facility] [address] [place] [address] 06/11/2023 Dipti Fountain Plan Of Treatment Next Appt Details Provider Name:Dipti Ocampo Александр , 04/11/2025 08:15:00 AM, [address] [place], [address], Progress Notes * Chema FAGAN PDOB:1955 (67 yo M)Acc No.[id number]:06/11/2023 Patient:?Chema Fagan :1955???Age:67 Y???Sex:Male Address:[address] [place] [address] * true * Date:? Generated for Printi ng/Faxing/eTransmitting on:?04/30/2024 08:51 AM EDT
--- OUTSIDE RECORDS SUMMARY | 2024-04-30 08:52 | XMS_ITS ---
[facility] Address [address] [facility] [place] [place] [address] Care Team Providers Care Medicare Nurse Name Role Phone Amaury Burk MD Primary Care Provider Unavaila ble Black, Dipti Unavailable [phone] Allergies Allergen (clinical drug ingredient) Drug/Non Drug [...] Ordered Date Performed Result Body Sit e 76093-BZNS SKIN LESIONS, 2 TO 4 04/14/2023 N/A [id number] NAIL(S) 04/14/2023 N/A Encounters Encounter Location Date Provider Diagnosis [facility] [address] [address] 04/14/2023 Dipti Александр Diabetes mellitus type 2, [...] Treatment Pending Test Test Name Order Date 35626-XKYW SKIN LESIONS, 2 TO 4 04/14/19 84589-BFJN NAIL(S) 04/14/2023 Next Appt Details Follow Up: 1 Year, Reason: Provider Name:Dipti Fountain , 04/11/2025 08:15:00 AM, [address] [facility] [place], [address], Procedure Notes * Category Sub-Category Detail Notes Keratoma Treatment Parring or Cutting o f Benign Hyperkeratotic Lesion(s) 26136 (2-4 Lesions) - The Benign hyperkeratotic lesions, as described above were pared, and/or cut utilizing a sterile #15 blade, tissue nippers, and/or dremel Nail Reduction Nail Reduction Trimming of non- dystrophic nails performed to reduce/remove overall nail length and girth, by manual and electrical means with use of a nail nipper and/or dremel, to more viable healthy nail plate or bed tissue 6-10 (60940) Progress Notes * Chema FAGAN PDOB:1955 (67 yo M)Acc No.[id number]:04/14/2023 Progress Note Patient:?Chema Fagan P Provider:?Dipti Fountain DPM :1955???Age:67 Y???Sex:Male [place] e:04/14/2023 Address:[address] [place] [address] [place], [facility] Pcp:Amaury Burk MD Subjective: * Chief Complaints: [...] status: . ?Occupation: retired- [employer]. * Medications:?TakingRosuvasta tin Calcium 40 MG Tablet [...] Procedures:?Keratoma Treatment:?Parring or Cutting of Benign Hyperkeratotic Lesion(s)?07785 (2-4 Lesions) - The Benign hyperkeratotic lesions, as described above were pared, and/or cut utilizing a sterile #15 blade, tissue nippers, and/or dremel.?Nail Reduction:?Nail Reduction?Trimming of non-dystrophic nails performed to reduce/remove overall nail length and girth, by manual and electrical means with use of a nail nipper and/or dremel, to more viable healthy nail plate or bed tissue 6-10 (46282).? * Procedure Codes:?19170 TRIM NAIL(S), Modifiers: XS 37080 TRIM SKIN LESIONS, 2 TO 4, Modifiers: [...] Fountain DPM Date:?2023 Generated for Emily jackson/Umu/Sharonda on:?04/30/2024 08:51 AM EDT History and Physical Notes * HPI (History [...]
--- OUTSIDE RECORDS SUMMARY | 2024-04-30 08:52 | XMS_ITS ---
Author Organization [facility] Address [address] [place] [address] Care Team Providers Care Developmental Specialist Name Role Phone Amaury Burk MD Primary Care Provider Unavaila ble Black, Dipti Unavailable [phone] Allergies Allergen (clinical drug ingredient) Drug/Non Drug [...] 025 Encounters Encounter Location Date Provider Diagnosis [facility] [address] [place] [address] 04/12/2024 Dipti Fountain Diabetes mellitus type 2, [...] Name:Dipti Fountain , 04/11/2025 08:15:00 AM, [address] [place], [address], Progress Notes * Chema FAGAN PDOB:1955 (68 yo M)Acc No.[id number]:04/12/2024 Progress Note Patient:?Chema FAGAN Provider:?Dipti Fountain DPM :1955???Age:68 Y???Sex:Male [place] e:04/12/2024 Address:[address] [place], [place] [id number] Pcp:Amaury Burk MD Subjective: * Chief Complaints: [...] status: . ?Occupation: retired- [employer]. ???Drug/Alcohol:?AUDIT-C (Standard)?Did you have a drink containing [...] Fountain DPM Date:?2024 Generated for Emily jackson/Umu/Sharonda on:?04/30/2024 08:51 AM [...]
--- OUTSIDE RECORDS SUMMARY | 2024-04-30 08:52 | XMS_ITS | Patient Health Record ---
Author Organization [facility] Address [address] [place] [address] Care Team Providers Care Qualified Craft Worker Electrician Name Role Phone Bhargavi STEPHENSON, Amaury Primary Care Provider Unavaila ble Black, Dipti Unavailable [phone] Allergies Allergen (clinical drug ingredient) Drug/Non Drug [...] Problem Acquired hammer toe of right foot (0308012365218385 ) Other hammer toe(s) (acquired), right foot (M20.41) Active confirmed Problem Acquired hammer toe of left foot (5903364060178333 ) Other hammer toe(s) (acquired), left foot (M20.42) Active confirmed Problem Type II diabetes mellitus without complication (431427415) Diabetes mellitus type 2, diet-controll ed (E11.9) Active confirmed Vital Signs Blood pressure diastolic 80 mm Hg 04/12/2024 Height 5ft 10in in 04/12/2024 Blood pressure systolic 120 mm Hg 04/12/2024 Weight 230 lbs 04/12/2024 BMI 33 kg/m2 04/12/2024 Encounters Encounter Location Date Provider Diagnosis [facility] [address] [address] 04/12/2024 Dipti Fountain Diabetes mellitus type 2, diet-controlled E11.9 ; Tinea pedis of both feet B35.3 ; Other hammer toe(s) (acquired), right foot M20.41 and Other hammer toe(s) (acquired), left foot M20.42 [facility] [address] [address] 06/11/2023 Dipti Fountain Assessments Encounter Date Diagnosis [...] Treatment Pending Test Test Name Order Date 95577-JBAC SKIN LESIONS, 2 TO 4 05/23/19 18 18713-NRUI SKIN LESIONS, 2 TO 4 05/22/19 19 90175-MVIC SKIN LESIONS, 2 TO 4 04/02/19 22 98268-XWWF SKIN LESIONS, 2 TO 4 04/14/19 24 88243-WQKM NAIL(S) 04/14/2023 62841-OKAN NAIL(S) 04/02/2021 55333-PCGH NAIL(S) 05/21/2018 49689-JZXY NAIL(S) 05/22/2015 56906-KFZK NAIL(S) 05/20/2016 30928-VCKJ NAIL(S) 05/22/2017 Next Appt Details Provider Name:Dipti Fountain , 04/11/2025 08:15:00 AM, [address] [place], [address], Insurance Providers Payer Name Payer Address Payer Phone Subscriber Number Group Number Insured Name Patient Relationship to Insured Coverage Start Date Coverage End Date Medicare [facility] [address] [place] [address] [id number] Chema Baker Self - patient is the insured for Life [address] [place] [id number] [id number] Chema Baker Self - patient is the insured Medical (General) History Medical History History ICD Code diabetic heart disease measles chicken pox Detached Retina Surgical History Surgery Date(Month/Year) appendectomy 1967 pin in broken arm 1977 automatic implantable cardioverter defib rillator (AICD) 08/2015 detached retina x2
== END 2024-04-30 09:02 | disposition home or self-care (01) ==
LOC: HO.HMCH 08:37
PROVIDERS: PCP Internal Medicine; Visit Provider Internal Medicine
DX: I25.10 Atherosclerotic heart disease of native coronary artery without angina pectoris (principal); E11.69 Type 2 diabetes mellitus with other specified complication; E66.9 Obesity, unspecified; Z68.34 Body mass index [BMI] 34.0-34.9, adult

== ENCOUNTER → 2024-04-30 08:37 | Outpatient (BNVA) | payer MEDICARE, OTHER, SELFPAY | PROVIDERS: PCP Internal Medicine; Visit Provider Internal Medicine | DX: I25.10 Atherosclerotic heart disease of native coronary artery without angina pectoris (principal); E11.69 Type 2 diabetes mellitus with other specified complication; E66.9 Obesity, unspecified | CPT/HCPCS: 96127; 99212 ==

== ENCOUNTER 2024-08-04 13:02 | Outpatient (AMB) | payer MEDICARE, OTHER, SELFPAY ==
[2024-08-04 13:15] VITALS: BP 104/68; PULSE 61; O2SAT 96; BMI 34.9
--- NOTE | 2024-08-04 13:15 | A.OFFPC_ITS ---
Vital Signs 08/04/24 13:15 Height 5 ft 10 in Weight 243 lb BMI 34.9 BP 104/68 Blood Pressure Location Lt brachial Position Sitting Pulse 61 Pulse Source Pulse Oximeter Pulse Oximetry (%) 96 Oxygen Delivery Method Room Air Intake Visit Reasons: Transfer Care from Dr. Burk Heart Failure/DM Assembler Fluorescent Lights Required: No Accompanied by: Self / Same As Patient Allergies succinylcholine (SUCCINYLCHOLINE) Allergy (Severe, Verified 08/04/24 13:16) JAW RIGIDITY lisinopril (LISINOPRIL) Allergy (Intermediate, Verified 08/04/24 13:16) COUGH Medication List - Last Reconciled 08/04/24 by Sonia Harrison MD aspirin (Adult Low Dose Aspirin) 81 mg PO DAILY blood sugar diagnostic (FreeStyle Lite Strips) As directed two times a day blood-glucose meter (FreeStyle [place] Lite kit) As directed carvedilol 12.5 mg PO BID clotrimazole-betamethasone 1-0.05 % 1 appl topical BID 2 weeks lancets (FreeStyle Lancets) As directed twice a day metformin 1,000 mg (2 x 500 mg) PO BID 90 days rosuvastatin 40 mg PO QPM 90 days sacubitril-valsartan 24-26 mg 1 tab PO BID sitagliptin phosphate (Januvia) 100 mg PO DAILY Tobacco use date assessed: 08/04/24 Fall risk assessment: No Falls in past year Last assessed Fall Risk: 08/04/24 Dental Screening Dental Screen Date: 08/04/24 Did you have a dental visit in the last 12 months?: Yes Did you have a dental problem in the last 6 months where you did not have access to dental care?: No Was dental information given to patient?: Patient has dentist COUNT INCLUDES [facility] Medical History (Updated 08/04/24 @ 13:55 by Sonia Harrison MD) Poison myesha Tick bite of abdomen CAD (coronary artery disease) History of NC (myocardial infarction) Subclinical hypothyroidism Obesity (BMI 30-39.9) Hypertension Dyslipidemia Surgical History (Updated 08/04/24 @ 13:50 by Sonia Harrison MD) History of carpal tunnel surgery History of surgery History of implantable cardiac defibrillator (ICD) H/O thumb surgery History of elbow surgery History of vasectomy History of appendectomy Family History Father CAD (coronary artery disease) Diabetes Mother CAD (coronary artery disease) Brother CAD (coronary artery disease) S/P CABG x 2 Social History (Updated 08/04/24 @ 13:51 by Sonia Harrison MD) Housing: House Alcohol intake: current Alcohol intake frequency: a few times a month Comment: 4 drinks a month Patient Tobacco Use Status: Former Tobacco user Tobacco use type: Cigarette Years Smoked: quit 19 years old e-Cigarette/Vaping Use: Never Used Second Hand Smoke Exposure: No Substance Use Type: Former Substance User and Marijuana service: Yes Current occupational status: retired Current occupation: right handed Current occupational exposures/hazards: No Cognitive needs: No Hearing needs: No Vision needs: Yes Questionnaire PHQ-9 Over the last 2 weeks, how often have you been bothered by any of the following problems? 1. Little interest or pleasure in doing things: not at all 2. Feeling down, depressed, or hopeless: not at all 3. Trouble falling or staying asleep, or sleeping too much: not at all 4. Feeling tired or having little energy: not at all 5. Poor appetite or overeating: not at all 6. Feeling bad about yourself - or that you are a failure or have let yourself or your family down: not at all 7. Trouble concentrating on things, such as reading the newspaper or watching television: not at all 8. Moving or speaking so slowly that other people could have noticed. Or the opposite - being so fidgety or restless that you have been moving around a lot more than usual: not at all 9. Thoughts that you would be better off or of hurting yourself in some way: not at all Total score: 0 Source: Developed by Drs. Martir Elliott, Alice Clifford, Alvin Zhang and colleagues, with an educational andrade from [employer]. Thrive Questionnaire Date Thrive assessed: 08/04/24 I am a: Patient What is your living situation today?: I have a steady place to live Within the past 12 months, did the food you bought not last and you didn't have the money to get more?: Never true Within the past 12 months, did you worry whether your food would run out before you got money to buy more?: Never true Do you have trouble paying for medicines?: No Do you have trouble getting transportation to medical appointments?: No Do you have trouble paying your heating and electricity bill?: No Do you have trouble taking care of your child, family member or friend?: No Do you have trouble with day-to-day activities such as bathing, preparing meals, shopping, managing finances, etc.?: No Are you currently unemployed and looking for a job?: No Are you interested in more education?: No Please select the resources that you would like help with: None Currently or been in a relationship where the following occur: No concerns reported THRIVE Score: 0 AUDIT C Alcohol Use Questionnaire (AUDIT-C) 1. How often do you have a drink containing alcohol?: 2-3 times a week 3. How often do you have six or more drinks on one occasion?: Never Total Score: 3 TOMASZ-7 AMB Questionnaire TOMASZ-7 Date TOMASZ - 7 assessed: 08/04/24 Feeling nervous, anxious, or on edge: 0 = Not at all Not being able to stop or control worryin = Not at all Worrying too much about different things: 0 = Not at all Trouble relaxin = Not at all Being so restless that it is hard to sit still: 0 = Not at all Becoming easily annoyed or irritable: 0 = Not at all Feeling afraid as if something awful might happen: 0 = Not at all Total TOMASZ-7 score (0-4 normal; 5-9 mild; 10-14 moderate; 15-21 severe): 0 Source: Developed by Drs. Martir Elliott, Alice Clifford, Alvin Zhang and colleagues, with an educational andrade from [employer]. Physical exam (Primary Care) Vital Signs: Last Vital Signs Pulse 61 08/04/24 13:15 BP 104/68 08/04/24 13:15 Pulse Ox 96 08/04/24 13:15 Oxygen Delivery Method Room Air 08/04/24 13:15 BMI result Body Mass Index 34.9 Tobacco/Smoking Status: Tobacco use Status Tobacco use date assessed 08/04/24 08/04/24 13:22 Patient Tobacco Use Status Former Tobacco user 08/04/24 13:51 Tobacco use type Cigarette 08/04/24 13:51 e-Cigarette/Vaping Use Never Used 08/04/24 13:51 PHQ-9: PHQ-9 Score PHQ-9: Total score 0 08/04/24 14:14 Thrive Assessment: Date of Thrive Assessment Date Thrive assessed 08/04/24 08/04/24 13:22 Currently or been in a relationship where the following occur: No concerns reported Const General: alert; No acute distress Eyes Conjunctivae: conjunctivae normal Resp Auscultation: clear to auscultation bilaterally Cardio Rate: regular rate Rhythm: regular rhythm GI Inspection: Yes normal to inspection Extrem General: Yes normal to inspection and No edema Results AMB Hemoglobin A1c AMB Hemoglobin A1c 7.1 % Last Edit by ROSA Mendoza on 08/04/24 14 :09 Immunizations Tenivac (PF) 5 Lf unit-2 Lf unit/0.5 mL intramuscular syringe Performing Provider: Sonia Harrison MD [facility] Administered by: ROSA Rios on 08/04/24 14:13 Dose Route Admin Location Dispensed Lot Number Expiration Date NDC Electric Meter Repairer Apprentice 0.5 mL IM Left Deltoid 0.5 mL [id number] 04/17/26 28325-720-87 [employer]PASTE[employer] Total Dispensed Waste 0.5 mL 0 % VIS Given Date VIS Provided VIS Publication Date 08/04/24 Single Vaccine 20 Eligibility Eligibility Date Funding Source Not [facility] Eligible 08/04/24 Private Results Reviewed Results Reviewed: Laboratory Last Values Hgb A1c (Clinic) 7.1 % (4.0-6.0) H 08/04/24 13:15 Coding Level of Care Code Est Pt Level 4 (07543) Complex EM visit Add On G2211 Diagnoses Type 2 diabetes mellitus with hyperglycemia E11.65 Obesity (BMI 30-39.9) E66.9 CAD (coronary artery disease) I25.10 Dyslipidemia E78.5 Essential hypertension I10 Hypertension type: essential hypertension Ischemic cardiomyopathy I25.5 CHF (congestive heart failure) I50.9 Detached retina, left H33.22 Assessment & Plan Assessment & Plan (1) Type 2 diabetes mellitus with hyperglycemia: Comment: Dr. Freeman Code(s): E11.65 - Type 2 diabetes mellitus with hyperglycemia Category: Medical Plan: Decrease the amount of carbohydrate intake, pasta, bread, rice and potatoes are all sugar and that is aside from all the sweet stuff, remember that fruits are good but they are Sweet also. Hemoglobin A1c goal of less than 7.0. Patient on metformin a 1000 mg twice a day Januvia 100 mg once a day (2) Obesity (BMI 30-39.9): Code(s): E66.9 - Obesity, unspecified Category: Medical Plan: Diet and exercise (3) CAD (coronary artery disease): Code(s): I25.10 - Atherosclerotic heart disease of [place] coronary artery without angina pectoris Category: Medical Plan: Control the cholesterol, weight, blood pressure, diabetes patient on aspirin 81 mg once a day (4) Dyslipidemia: Code(s): E78.5 - Hyperlipidemia, unspecified Category: Medical Plan: Avoid fried foods, chicken skin, eggs, butter margarine, pastries and meat. Be it pork or beef they have a lot of cholesterol LDL goal of less than 70 and triglyceride of less than 150 patient is on rosuvastatin 40 mg once a day (5) Hypertension: Code(s): I10 - Essential (primary) hypertension Category: Medical Qualifiers: Hypertension type: essential hypertension Qualified Code(s): I10 - Essential (primary) hypertension Plan: Continue with blood pressure medication. Decrease salt intake and exercise continue with carvedilol 12.5 mg twice a day and Entresto twice a day (6) Ischemic cardiomyopathy: Code(s): I25.5 - Ischemic cardiomyopathy Category: Medical (7) CHF (congestive heart failure): Code(s): I50.9 - Heart failure, unspecified Category: Medical (8) Detached retina, left: Comment: Dr. Freeman Code(s): H33.22 - Serous retinal detachment, left eye Category: Medical Plan History of Present Illness The patient is a 68-year-old male presenting for a follow-up visit. He has a history of diabetes mellitus, hypertension, hypercholesterolemia, hypothyroidism, and coronary artery disease. The patient was last seen in April 2024 and has been under the care of a director of business continuity since March of the previous year. His diabetes management includes metformin 1000 mg twice daily and Januvia 100 mg once daily, with a hemoglobin A1c goal of less than 7.0%. For hypercholesterolemia, the patient is on rosuvastatin 40 mg once daily, with an LDL cholesterol goal of less than 100 mg/dL and triglycerides less than 150 mg/dL. He is also on aspirin 81 mg daily for coronary artery disease. The patient has a history of ischemic cardiomyopathy with an ejection fraction of 35%, monitored by Dr. Garcia, his coin rolling machine operator. He has an implantable cardioverter-defibrillator (ICD) and reports no recent defibrillation events. The patient reports a history of a detached retina in the left eye, resulting in almost no vision in that eye, while the right eye remains unaffected. He is under the care of Dr. Freeman for ophthalmology follow-ups. Socially, the patient reports minimal alcohol consumption, having quit smoking at age 19, and no current recreational drug use. He is physically active, engaging in hiking and other activities, and maintains a healthy diet influenced by his vegetarian partner. Health Maintenance - Pneumonia vaccination administered - Tetanus vaccination due, last administered in 2014 - Regular podiatry and ophthalmology follow-ups - Blood work scheduled to monitor anemia and kidney function Social History - Alcohol: Minimal consumption, approximately four drinks per month - Smoking: Quit at age 19 - Recreational Drugs: No current use - Physical Activity: Engages in hiking and other activities - Diet: Healthy diet influenced by vegetarian partner Review of Systems - Cardiovascular: Denies dizziness - Gastrointestinal: Denies constipation, denies blood in stools - Ophthalmologic: Reports almost no vision in left eye, denies issues with right eye Physical Exam General: Cooperative, healthy appearing, comfortable, no acute distress and well developed Orientation: Patient oriented x3 Limitations: No limitations Head: Normal to inspection Ears: Hearing grossly normal bilaterally Nose: Normal external nose present Face and sinus: Normal facial exam Eyes: Appearance normal, both eyes and all related structures. Patient has no vision in the left eye due to a detached retina and cataracts. Right eye is fine with no cataracts. Neck: Normal visual inspection and Yes full ROM Respiratory: Normal respiratory effort and able to speak in complete sentences. Clear to auscultation bilaterally Cardiovascular: Regular rate and rhythm. Normal S1 and S2. Patient has ischemic cardiomyopathy with an ejection fraction of 35. Patient has an ICD in place. GI: Normal to inspection. Soft to palpation and nontender. No constipation, no blood in stools. Skin: No rashes or lesions noted. Patient occasionally experiences a rash in the groin area, treated with a prescription antifungal and steroid cream. Neuro: Patient oriented x3 Extremities: Normal to inspection Results - Labs: Hemoglobin A1c 6.9% in April, mild anemia with hemoglobin 13.8 g/dL in June 2023 - Tests: Ejection fraction 35% indicating ischemic cardiomyopathy Plan The management plan for diabetes includes maintaining the current regimen of metformin 1000 mg twice daily and Januvia 100 mg once daily, with a target hemoglobin A1c of less than 7.0%. For hypercholesterolemia, the patient will continue on rosuvastatin 40 mg once daily, aiming for an LDL cholesterol level of less than 100 mg/dL and triglycerides less than 150 mg/dL. The patient will continue aspirin 81 mg daily for coronary artery disease management. Blood pressure management will continue with carvedilol 12.5 mg twice daily and Entresto, with no changes as the current regimen maintains adequate control. The patient will receive a pneumonia vaccination today and is due for a tetanus booster, last administered in 2014. Regular follow-ups with podiatry and ophthalmology are advised to monitor for complications related to diabetes and vision issues. A complete blood count and kidney function tests are scheduled to monitor mild anemia and renal status. Patient was informed and verbally consented to the use of an ambient scribe for clinic note documentation during this visit. Discussion Notes During the visit, I discussed the importance of maintaining current medication regimens for diabetes, hypercholesterolemia, and coronary artery disease. We reviewed the need for regular monitoring of blood pressure and the continuation of carvedilol and Entresto. I emphasized the importance of vaccinations, administering the pneumonia vaccine today and noting the need for a tetanus booster. We also discussed the necessity of regular follow-ups with podiatry and ophthalmology to prevent complications. Patient Instructions - Continue taking metformin and Januvia as prescribed. - Maintain current regimen of rosuvastatin and aspirin. - Attend regular follow-ups with podiatry and ophthalmology. - Schedule and complete blood work as discussed. - Receive pneumonia vaccination today and schedule tetanus booster. Orders: Orders AMB Hemoglobin A1c Today Z13.9 - Encounter for screening, unspecified Complete Blood Count Auto Diff Today E11.65 - Type 2 diabetes mellitus with hyperglycemia Microalbumin, Random (w Creat) Today E11.65 - Type 2 diabetes mellitus with hyperglycemia Free T4 (Free Thyroxine) Today E11.65 - Type 2 diabetes mellitus with hyperglycemia Thyroid Stimulating Hormone Today E11.65 - Type 2 diabetes mellitus with hyperglycemia Vitamin B12 and Folate Today E11.65 - Type 2 diabetes mellitus with hyperglycemia Hemoglobin A1c Today E11.65 - Type 2 diabetes mellitus with hyperglycemia Prostate Specific Antigen Scr Today E11.65 - Type 2 diabetes mellitus with hyperglycemia IRON PROFILE Today E11.65 - Type 2 diabetes mellitus with hyperglycemia Td Immunization Today Z23 - Encounter for immunization B Type Natriuretic Peptide Today E11.65 - Type 2 diabetes mellitus with hyperglycemia Comprehensive Met. Panel Today E11.65 - Type 2 diabetes mellitus with hyperglycemia Creatinine Urine Today E11.65 - Type 2 diabetes mellitus with hyperglycemia Lipid Panel Today E11.65 - Type 2 diabetes mellitus with hyperglycemia, E78.00 - Pure hypercholesterolemia, unspecified Ferritin Today E11.65 - Type 2 diabetes mellitus with hyperglycemia Reticulocyte Count Today E11.65 - Type 2 diabetes mellitus with hyperglycemia
--- OUTSIDE RECORDS SUMMARY | 2024-08-04 14:57 | XMS_ITS | Patient Health Record ---
[facility] Address [address] [place] [address] Care Team Providers Care Director Of Research Center Name Role Phone Bhargavi STEPHENSON, Amaury Primary Care Provider Unavaila ble Black, Dipti Unavailable [phone] Allergies Allergen (clinical drug ingredient) Drug/Non Drug [...] Problem Acquired hammer toe of right foot (4465705952313710 ) Other hammer toe(s) (acquired), right foot (M20.41) Active confirmed Problem Acquired hammer toe of left foot (2936270104028127 ) Other hammer toe(s) (acquired), left foot (M20.42) Active confirmed Problem Type II diabetes mellitus without complication (697811214) Diabetes mellitus type 2, diet-controll ed (E11.9) Active confirmed Vital Signs Blood pressure diastolic 80 mm Hg 04/12/2024 Height 5ft 10in in 04/12/2024 Blood pressure systolic 120 mm Hg 04/12/2024 Weight 230 lbs 04/12/2024 BMI 33 kg/m2 04/12/2024 Encounters Encounter Location Date Provider Diagnosis [facility] [address] [place] [address] 04/12/2024 Dipti Black Diabetes mellitus type 2, diet-controlled [...] Treatment Pending Test Test Name Order Date 75767-PCRK SKIN LESIONS, 2 TO 4 05/23/19 18 34028-YYHB SKIN LESIONS, 2 TO 4 05/22/19 19 87921-KKDY SKIN LESIONS, 2 TO 4 04/02/19 22 49525-UWYL SKIN LESIONS, 2 TO 4 04/14/19 24 39722-LYLB NAIL(S) 04/14/2023 73513-ZVPN NAIL(S) 04/02/2021 67968-ZOHV NAIL(S) 05/21/2018 15583-ZGLP NAIL(S) 05/22/2015 78041-TSPD NAIL(S) 05/20/2016 01917-IAYI NAIL(S) 05/22/2017 Next Appt Details Provider Name:Dipti Fountain , 04/11/2025 08:15:00 AM, [address] [place] [address], [place], [address], Insurance Providers Payer Name Payer Address Payer Phone Subscriber Number Group Number Insured Name Patient Relationship to Insured Coverage Start Date Coverage End Date Medicare National [employer]t [employer] [address] [facility] [place] [address] [id number] Chema Baker Self - patient is the insured for Life [address] [place] [phone] [id number] Chema Baker Self - patient is the insured Medical (General) History Medical History History ICD Code diabetic heart disease measles chicken pox Detached Retina Surgical History Surgery Date(Month/Year) appendectomy 1968 pin in broken arm 1977 automatic implantable cardioverter defib rillator (AICD) 08/2015 detached retina x2
== END 2024-08-04 14:18 | disposition home or self-care (01) ==
LOC: HO.HMCH 13:03
PROVIDERS: PCP Internal Medicine; Visit Provider Internal Medicine
DX: E11.65 Type 2 diabetes mellitus with hyperglycemia (principal); E66.9 Obesity, unspecified; I50.9 Heart failure, unspecified; Z68.34 Body mass index [BMI] 34.0-34.9, adult; I25.10 Atherosclerotic heart disease of native coronary artery without angina pectoris; E78.5 Hyperlipidemia, unspecified; I10 Essential (primary) hypertension; I25.5 Ischemic cardiomyopathy; H33.22 Serous retinal detachment, left eye; Z23 Encounter for immunization

== ENCOUNTER → 2024-08-04 13:02 | Outpatient (BNVA) | payer MEDICARE, OTHER, SELFPAY | PROVIDERS: PCP Internal Medicine; Visit Provider Internal Medicine | DX: Z23 Encounter for immunization (principal); E11.65 Type 2 diabetes mellitus with hyperglycemia; I25.10 Atherosclerotic heart disease of native coronary artery without angina pectoris; I25.5 Ischemic cardiomyopathy; I11.0 Hypertensive heart disease with heart failure; I50.9 Heart failure, unspecified; H33.22 Serous retinal detachment, left eye; E78.5 Hyperlipidemia, unspecified; E66.9 Obesity, unspecified; Z68.34 Body mass index [BMI] 34.0-34.9, adult; Z71.3 Dietary counseling and surveillance | CPT/HCPCS: 83036; 90471; 90714; 99212 ==

== ENCOUNTER 2024-08-05 06:25 | Outpatient (REF) | payer MEDICARE, OTHER, SELFPAY ==
[2024-08-05 09:57] LABS: B Type Natriuretic Peptide 77 pg/mL (<100)
[2024-08-05 10:28] LABS: MANUAL DIFF FLAG NO
[2024-08-05 10:33] LABS: Basophils Percent Auto 0.3 % (0-2); Eosinophils Absolute Auto 0.1 X10*3/uL (0.0-0.4); Hematocrit 40.5 % (42.0-52.0); Hemoglobin 13.1 g/dl (14.0-18.0); Imm Gran Abs Auto 0.03 X10*3/uL (0.00-0.03); Imm Gran Pct Auto 0.4 % (0.0-0.4); Lymphocytes Absolute Auto 1.9 X10*3/uL (1.2-4.9); Lymphocytes Percent Auto 27.2 % (20-40); Mean Corpuscular HGB Conc 32.3 g/dl (31.0-36.0); Mean Corpuscular Hemoglobin 27.4 pg (27.0-33.0); Mean Corpuscular Volume 84.7 fL (80.0-98.0); Mean Platelet Volume 9.3 fL (9.4-12.4); Monocytes Absolute Auto 0.5 X10*3/uL (0.1-1.2); Monocytes Percent Auto 7.6 % (2-11); Neutrophils Absolute Auto 4.3 x10*3/uL (2.0-8.3); Neutrophils Percent Auto 62.5 % (45-73); Platelet Count 184 X10*3/uL (160-400); Red Blood Count 4.78 X10*6/uL (4.60-5.80); Red Cell Distribution Width 14.7 % (11.0-16.0); Retic HGB Equivalent 31.8 pg (30.0-35.0); Reticulocyte Percent 1.3 % (0.5-1.8); Reticulocytes Absolute 0.061 X10*6/uL (0.026-0.095); White Blood Count 6.9 X10*3/uL (4.8-10.8)
[2024-08-05 10:48] LABS: Estimated Average Glucose 154 mg/dL
[2024-08-05 11:04] LABS: Alanine Aminotransferase 21 U/L (0-40); Albumin Level 4.2 g/dL (3.5-5.0); Alkaline Phosphatase 38 U/L (39-117); Anion Gap 11 (12-20); Aspartate Amino Transferase 26 U/L (5-37); Bilirubin Total 0.5 mg/dL (0.0-1.0); Blood Urea Nitrogen 19 mg/dL (9-16); Calcium 9.1 mg/dL (8.4-10.2); Carbon Dioxide 27 mmol/L (22-29); Chloride 106 mmol/L (96-108); Cholesterol 103 mg/dL (<200); Estimated Glomerular Filt Rate 59; Glucose Random 120 mg/dL (60-115); HDL Cholesterol 32 mg/dL (>40); Iron 56 mcg/dL (45-160); LDL Cholesterol Calculated 50 mg/dL (<100); Percent Iron Saturation 19 % (15-50); Potassium 4.6 mmol/L (3.3-5.1); Sodium 139 mmol/L (135-145); Total Iron Binding Capacity 297 mcg/dL (228-428); Total Protein 6.7 g/dL (6.5-8.0); Triglycerides 109 mg/dL (<150); Unsaturated Iron Binding 241 ug/dL
[2024-08-05 11:30] LABS: Ferritin 33 ng/mL (20-250); Free T4 (Free Thyroxine) 0.92 ng/dL (0.71-1.85); Thyroid Stimulating Hormone 3.38 uIU/mL (0.32-4.0)
[2024-08-05 11:34] LABS: Folate 10.2 ng/mL (> or = 4.0); Prostate Specific Antigen Scr 1.25 ng/mL (<0.05-4.0); Vitamin B12 227 pg/mL (200-900)
[2024-08-05 11:51] LABS: Creatinine Urine 145.09 mg/dL; Microalbum/Creatinine Ratio Ur 18.6 ug/mg cr (<30)
== END 2024-08-05 06:26 | disposition home or self-care (01) ==
LOC: HO.HMGCLDS 06:25
PROVIDERS: PCP Internal Medicine; Visit Provider Internal Medicine
DX: E11.65 Type 2 diabetes mellitus with hyperglycemia (principal); E78.00 Pure hypercholesterolemia, unspecified; Z12.5 Encounter for screening for malignant neoplasm of prostate
CPT/HCPCS: 36415; 80053; 80061; 82043; 82570; 82607; 82728; 82746; 83036; 83540; 83880; 84153; 84439; 84443; 85025; 85045

== ENCOUNTER 2024-12-14 06:04 | Outpatient (REF) | payer MEDICARE, OTHER, SELFPAY ==
--- OUTSIDE RECORDS SUMMARY | 2024-12-14 06:07 | XMS_ITS | Patient Health Record ---
Author Organization [facility] Address [address] [place] [address] Care Team Providers Care Thermodynamicist Name Role Phone Sonia Harrison Primary Care Provider Unavailabl e Black, Dipti Unavailable [phone] Allergies Allergen (clinical drug ingredient) Drug/Non Drug [...] to skin of feet including between the toes; Duration: 30 days Active Entresto 24-26 MG 1 tablet Orally Twic e a day; Duration: 30 day(s) valsartan Active Aspirin 81 MG 1 tablet Orally Once a day; Duration: 30 day(s) Active Carvedilol 12.5 MG 1 tablet with food Orally Twice a day Active metFORMIN HCl 1000 MG 1 tablet with meal s Orally Twice a day Active Atorvastatin Calcium 40 MG 1 tablet Orally Once a day; Duration: 30 day(s) Not-Taking Ciclopirox Olamine 0.77% external Apply to effected areas twice a day; Duration: 30 days PRN 05/16/2014 Not-Taking Rosuvastatin Calcium 40 MG 1 tablet Orally Once a day Active Irbesartan 150 MG 1 tablet Orally Once a day; Duration: 30 day(s) Not-Taking Immunizations Vaccine Route Administration Date Status Comme nts Influenza Unknown 05/22/2015 Administered Influenza Unknown 12/04/2015 Administered Influenza Unknown 10/18/2017 Administered Influenza Unknown 11/18/2020 Administered Influenza Unknown 10/18/2022 Administered COVID-19 Pfizer BioNTech Vaccine Unknown 11/25/2020 Administered First Dose: 04/20/2020 Second Dose: 05/11/2020 Social History Tobacco Use: Social History Observation [...] Problem Acquired hammer toe of right foot (9993122889916377 ) Other hammer toe(s) (acquired), right foot (M20.41) Active confirmed Problem Acquired hammer toe of left foot (4722245801191228 ) Other hammer toe(s) (acquired), left foot (M20.42) Active confirmed Problem Type II diabetes mellitus without complication (964180505) Diabetes mellitus type 2, diet-controll ed (E11.9) Active confirmed Vital Signs Blood pressure diastolic 80 mm Hg 04/12/2024 Height 5ft 10in in 04/12/2024 Blood pressure systolic 120 mm Hg 04/12/2024 Weight 230 lbs 04/12/2024 BMI 33 kg/m2 04/12/2024 Encounters Encounter Location Date Provider Diagnosis [facility] [address] [place] [address] 04/12/2024 Dipti Black Diabetes mellitus type 2, [...] Treatment Pending Test Test Name Order Date 31325-VMUH SKIN LESIONS, 2 TO 4 05/23/19 18 98676-SLOU SKIN LESIONS, 2 TO 4 05/22/19 19 81404-ZGZJ SKIN LESIONS, 2 TO 4 04/02/19 22 64785-BGXS SKIN LESIONS, 2 TO 4 04/14/19 24 97897-BTEP NAIL(S) 04/14/2023 49845-FLUQ NAIL(S) 04/02/2021 02763-VQAM NAIL(S) 05/21/2018 61739-NOGU NAIL(S) 05/22/2015 16449-XUJI NAIL(S) 05/20/2016 54263-XKOB NAIL(S) 05/22/2017 Next Appt Details Provider Name:Dipti Fountain , 04/11/2025 08:30:00 AM, [address] [place], [address], Insurance Providers Payer Name Payer Address Payer Phone Subscriber Number Group Number Insured Name Patient Relationship to Insured Coverage Start Date Coverage End Date Medicare National Govt [facility] [address] [facility] [place] [address] [id number] Chema Baker Self - patient is the insured for Life [address] [place] [phone] [id number] Chema Baker Self - patient is the insured Medical (General) History Medical History History ICD Code diabetic heart disease measles chicken pox Detached Retina Surgical History Surgery Date(Month/Year) appendectomy 1968 pin in broken arm 1977 automatic implantable cardioverter defib rillator (AICD) 08/2015 detached retina x2
== END 2024-12-14 06:05 | disposition home or self-care (01) ==
LOC: HO.HMGCLDS 06:04
PROVIDERS: PCP Internal Medicine; Visit Provider Internal Medicine
DX: Z13.89 Encounter for screening for other disorder (principal)

== ENCOUNTER 2024-12-15 06:01 | Outpatient (REF) | payer MEDICARE, OTHER, SELFPAY ==
--- OUTSIDE RECORDS SUMMARY | 2024-12-15 06:09 | XMS_ITS | Patient Health Record ---
[facility] Address [address] [place] [address] Care Team Providers Care Food Safety Coordinator Name Role Phone Sonia Harrison Primary Care Provider Unavailabl e Black, Dipti Unavailable [phone] Allergies Allergen (clinical drug ingredient) Drug/Non Drug [...] Problem Acquired hammer toe of right foot (5712941780042145 ) Other hammer toe(s) (acquired), right foot (M20.41) Active confirmed Problem Acquired hammer toe of left foot (6581029800985961 ) Other hammer toe(s) (acquired), left foot (M20.42) Active confirmed Problem Type II diabetes mellitus without complication (780622378) Diabetes mellitus type 2, diet-controll ed (E11.9) Active confirmed Vital Signs Blood pressure diastolic 80 mm Hg 04/12/2024 Height 5ft 10in in 04/12/2024 Blood pressure systolic 120 mm Hg 04/12/2024 Weight 230 lbs 04/12/2024 BMI 33 kg/m2 04/12/2024 Encounters Encounter Location Date Provider Diagnosis [facility] [address] [place] [address] 04/12/2024 Dipti Black Diabetes mellitus type 2, [...] Treatment Pending Test Test Name Order Date 50602-THLK SKIN LESIONS, 2 TO 4 05/23/19 18 59688-HPCW SKIN LESIONS, 2 TO 4 05/22/19 19 13107-FFAX SKIN LESIONS, 2 TO 4 04/02/19 22 95021-UDRI SKIN LESIONS, 2 TO 4 04/14/19 24 43711-PKTG NAIL(S) 04/14/2023 24720-FYCC NAIL(S) 04/02/2021 27169-NLJP NAIL(S) 05/21/2018 03099-LHGZ NAIL(S) 05/22/2015 40423-RMJW NAIL(S) 05/20/2016 05717-CZNC NAIL(S) 05/22/2017 Next Appt Details Provider Name:Dipti Fountain , 04/11/2025 08:30:00 AM, [address] [place], [address], Insurance Providers Payer Name Payer Address Payer Phone Subscriber Number Group Number Insured Name Patient Relationship to Insured Coverage Start Date Coverage End Date Medicare National Govt [facility] [address] [facility] [place] [address] [id number] Chema Baker Self - patient is the insured for Life [address] [place] [phone] [id number] Chema Baker Self - patient is the insured Medical (General) History Medical History History ICD Code diabetic heart disease measles chicken pox Detached Retina Surgical History Surgery Date(Month/Year) appendectomy 1968 pin in broken arm 1977 automatic implantable cardioverter defib rillator (AICD) 08/2015 detached retina x2
[2024-12-15 09:57] LABS: MANUAL DIFF FLAG NO
[2024-12-15 10:08] LABS: Hematocrit 44.0 % (42.0-52.0); Hemoglobin 14.2 g/dl (14.0-18.0); Imm Gran Abs Auto 0.02 X10*3/uL (0.00-0.03); Imm Gran Pct Auto 0.3 % (0.0-0.4); Lymphocytes Absolute Auto 2.2 X10*3/uL (1.2-4.9); Mean Corpuscular HGB Conc 32.3 g/dl (31.0-36.0); Mean Corpuscular Hemoglobin 27.9 pg (27.0-33.0); Mean Corpuscular Volume 86.4 fL (80.0-98.0); NRBC Abs Auto 0.000 X10*3/uL (0.0-0.012); NRBC Pct Auto 0.0 /100WBC (0.0-0.2); Platelet Count 208 X10*3/uL (160-400); Red Blood Count 5.09 X10*6/uL (4.60-5.80); Reticulocytes Absolute 0.073 X10*6/uL (0.026-0.095); White Blood Count 7.3 X10*3/uL (4.8-10.8)
[2024-12-15 10:39] LABS: Alanine Aminotransferase 22 U/L (0-40); Albumin Level 4.4 g/dL (3.5-5.0); Alkaline Phosphatase 45 U/L (39-117); Anion Gap 11 (12-20); Aspartate Amino Transferase 32 U/L (5-37); Blood Urea Nitrogen 22 mg/dL (9-16); Calcium 9.2 mg/dL (8.4-10.2); Carbon Dioxide 29 mmol/L (22-29); Chloride 106 mmol/L (96-108); Cholesterol 121 mg/dL (<200); Estimated Glomerular Filt Rate 58; HDL Cholesterol 37 mg/dL (>40); Iron 57 mcg/dL (45-160); Magnesium 1.8 mg/dL (1.6-2.6); Percent Iron Saturation 17 % (15-50); Potassium 4.2 mmol/L (3.3-5.1); Sodium 142 mmol/L (135-145); Total Iron Binding Capacity 326 mcg/dL (228-428); Total Protein 7.1 g/dL (6.5-8.0); Triglycerides 152 mg/dL (<150); Unsaturated Iron Binding 269 ug/dL
[2024-12-15 10:42] LABS: Ferritin 37 ng/mL (20-250)
[2024-12-15 10:51] LABS: Folate 10.3 ng/mL (> or = 4.0); Vitamin B12 176 pg/mL (200-900)
== END 2024-12-15 06:02 | disposition home or self-care (01) ==
LOC: HO.HMGCLDS 06:01
PROVIDERS: PCP Internal Medicine; Visit Provider Internal Medicine
DX: E11.65 Type 2 diabetes mellitus with hyperglycemia (principal); E78.00 Pure hypercholesterolemia, unspecified
CPT/HCPCS: 36415; 80053; 80061; 82607; 82728; 82746; 83036; 83540; 83735; 85025; 85045

== ENCOUNTER 2024-12-20 13:42 | Outpatient (AMB) | payer MEDICARE, OTHER, SELFPAY ==
[2024-12-20 13:44] VITALS: BP 120/70; PULSE 67; TEMP 36.3; O2SAT 97; BMI 34.2
--- NOTE | 2024-12-20 13:44 | A.OFFVIS_ITS ---
Intake Vital Signs 12/20/24 13:44 Height 5 ft 10 in Weight 238 lb 8 oz BMI 34.2 BP 120/70 Blood Pressure Location Lt brachial Position Sitting Pulse 67 Pulse Source Pulse Oximeter Temp 97.3 F Temp Source Temporal Artery Scan Pulse Oximetry (%) 97 Oxygen Delivery Method Room Air Intake Visit Reasons: AWV G0438 Allergies succinylcholine (SUCCINYLCHOLINE) Allergy (Severe, Verified 12/20/24 13:44) JAW RIGIDITY lisinopril (LISINOPRIL) Allergy (Intermediate, Verified 12/20/24 13:44) COUGH Medication List - Last Reconciled 12/20/24 by Sonia Sam PoMD aspirin (Adult Low Dose Aspirin) 81 mg PO DAILY blood sugar diagnostic (FreeStyle Lite Strips) As directed two times a day blood-glucose meter (FreeStyle [place] Lite kit) As directed carvedilol 12.5 mg PO BID clotrimazole-betamethasone 1-0.05 % 1 appl topical BID 2 weeks cyanocobalamin (vitamin B-12) 1,000 mcg PO DAILY lancets (FreeStyle Lancets) As directed twice a day metformin 1,000 mg (2 x 500 mg) PO BID 90 days rosuvastatin 40 mg PO QPM 90 days sacubitril-valsartan 24-26 mg 1 tab PO BID sitagliptin phosphate (Januvia) 100 mg PO DAILY HPI AWV G0438 HPI Details [facility], [facility], [facility], [facility] Orthopedics patient did see [facility] endocrinology, pulmonary doctor Cj gastroenterology Dr. Busby [facility] Medical History Poison myesha Tick bite of abdomen CAD (coronary artery disease) History of NH (myocardial infarction) Subclinical hypothyroidism Obesity (BMI 30-39.9) Hypertension Dyslipidemia Surgical History History of carpal tunnel surgery History of surgery History of implantable cardiac defibrillator (ICD) H/O thumb surgery History of elbow surgery History of vasectomy History of appendectomy Family History Father CAD (coronary artery disease) Diabetes Mother CAD (coronary artery disease) Brother CAD (coronary artery disease) S/P CABG x 2 Social History (Updated 12/20/24 @ 14:13 by Sonia Harrison MD) Housing: House Alcohol intake: current Alcohol intake frequency: a few times a month Comment: 4 drinks a month , 2 x a week 1 drinks Patient Tobacco Use Status: Former Tobacco user Tobacco use type: Cigarette Years Smoked: quit 19 years old e-Cigarette/Vaping Use: Never Used Second Hand Smoke Exposure: No Substance Use Type: Former Substance User and Marijuana service: Yes Current occupational status: retired Current occupation: right handed Current occupational exposures/hazards: No Cognitive needs: No Hearing needs: No Vision needs: Yes Questionnaire Medicare Wellness Checkup [age] 65-71 What gender do you identify with?: male During the past 4 weeks, how much have you been bothered by emotional problems such as feeling anxious, depressed, irritable, sad or downhearted, and blue?: slightly During the past 4 weeks, has your physical & emotional health limited your social activities with family, friends, neighbors, or groups?: not at all During the past 4 weeks, how much bodily pain have you generally had?: no pain During the past 4 weeks, was someone available to help you if you needed & wanted help?: yes, as much as I wanted During the past 4 weeks, what was the hardest physical activity you could do for at least 2 minutes?: very heavy Can you get to places out of walking distance without help? (For eg., can you travel alone on buses, taxis or drive your car?): Yes Can you go shopping for groceries or clothes without someone's help?: Yes Can you prepare your own meals?: Yes Can you do your housework without help?: Yes Because of any health problems, do you need the help of another person with your personal care needs such as eating, bathing, dressing or getting around the house?: No Can you handle your own money without help?: Yes During the past 4 weeks, how would you rate your health in general?: very good During the past 4 weeks how have things been going for you?: pretty well Are you having difficulties driving your car?: no Do you always fasten your seat belt when you are in a car?: yes, usually During past 4 weeks, have you been bothered by the following: never: Falling or dizzy when standing up, Sexual problems?, Trouble eating well?, Teeth or denture problems?, Problems using the telephone? and Tiredness or fatigue? Have you fallen 2 or more times in the past year?: No Are you afraid of falling?: No Are you a smoker?: no During the past 4 weeks, how many drinks of wine, beer, or other alcoholic beverages did you have?: 2-5 drinks per week Do you exercise for about 20 minutes 3 or more times a week?: yes, all the time Have you been given information to help with the following?: yes: Hazards in yo ur house that might hurt you? and yes: Keeping track of your medications? How often do you have trouble taking medicines the way you have been told to take them?: I always take medicine as prescribed How confident are you that you can control & manage most of your health problems?: very confident What is your race?: White PHQ-9 Over the last 2 weeks, how often have you been bothered by any of the following problems? 1. Little interest or pleasure in doing things: not at all 2. Feeling down, depressed, or hopeless: not at all 3. Trouble falling or staying asleep, or sleeping too much: not at all 4. Feeling tired or having little energy: not at all 5. Poor appetite or overeating: not at all 6. Feeling bad about yourself - or that you are a failure or have let yourself or your family down: not at all 7. Trouble concentrating on things, such as reading the newspaper or watching television: not at all 8. Moving or speaking so slowly that other people could have noticed. Or the opposite - being so fidgety or restless that you have been moving around a lot more than usual: not at all 9. Thoughts that you would be better off or of hurting yourself in some way: not at all Total score: 0 Depression Screening Interpretation: Negative Depression Screening Done: Yes 41752 - PHQ-9 Billing: Yes Source: Developed by Drs. Martir Elliott, Alice Clifford, Alvin Zhang and colleagues, with an educational andrade from [employer]. Review of Systems Const Denies poor appetite and Denies weakness Eyes Denies no additional complaints ENT Reports Normal hearing present, Denies dizziness, Denies nasal congestion, Denies tinnitus and Denies sore throat Card Denies chest pain, Denies syncope, Denies rapid heart rate and Denies dyspnea Resp Denies cough and Denies dyspnea GI Denies change in stool character, Reports constipation, Denies diarrhea, Denies nausea and Denies vomiting Denies dysuria and Denies urinary frequency Neuro Reports Normal hearing present, Denies confusion, Denies dizziness, Denies syncope and Denies weakness Psych Denies confusion Physical Exam Vital Signs: Last Vital Signs Temp 97.3 F 12/20/24 13:44 Pulse 67 12/20/24 13:44 BP 120/70 12/20/24 13:44 Pulse Ox 97 12/20/24 13:44 Oxygen Delivery Method Room Air 12/20/24 13:44 BMI result Body Mass Index 34.2 Const General: No confusion Orientation/consciousness: No confusion HEENT Head: Yes normocephalic Ears: external ears normal and TM's normal bilaterally Face and sinus: Yes normal facial exam Mouth: moist mucous membranes Throat: Yes tonsils normal Eyes Conjunctivae: conjunctivae normal Pupils: Equal, round and reactive pupils present and Pupil accommodation reflex normal Direct Ophthalmoscopy: normal light reflex Neck Neck: No lymphadenopathy Thyroid: Thyroid normal Chest Chest palpation & inspection: normal inspection of the chest Resp Effort & Inspection: normal respiratory effort and no audible wheezes Auscultation: clear to auscultation bilaterally, no crackles, no wheezes and lung sounds not diminished Cardio Rate: regular rate Rhythm: regular rhythm Peripheral pulses: radial pulses present and dorsalis pedis present GI Other: colon test 11/2024 Palpation (GI): no masses Auscultation: normal bowel sounds and normoactive bowel sounds Rectal Exam - Male: Yes deferred Other: pin prick and pedal pulse good Male General Exam: Yes normal external exam Skin General skin exam: no rashes or lesions noted Rashes: no rashes Neuro General: No confusion Cranial nerves: Yes Equal, round and reactive pupils present and Yes Normal hearing present Cognition (Neuro): normal cognition Gait exam (Neuro): Normal gait present Motor exam (neuro): 5/5 motor strength present throughout Deep tendon reflexes (DTR's): Right brachioradialis reflex intensity grade: 2+, Left brachioradialis reflex intensity grade: 2+, Right patellar reflex intensity grade: 2+ and Left patellar reflex intensity grade: 2+ Extrem General: No edema Immunizations pneumoc 20-elvis conj-dip cr(PF) 0.5 mL IM syringe Performing Provider: Sonia Harrison MD Performing Location: [facility] Administered by: Genoveva Man CMA on 12/20/24 14:42 Dose Route Admin Location Dispensed Lot Number Expiration Date FORMERLY NAMED [facility] Rn Field 0.5 mL IM Left Deltoid 0.5 mL [id number] 10/18/25 [employer] /[employer] Total Dispensed Waste 0.5 mL 0 % VIS Given Date VIS Provided VIS Publication Date 12/20/24 Single Vaccine 24 Eligibility Eligibility Date Funding Source Not [facility] Eligible 12/20/24 Private Assessment & Plan Assessment & Plan (1) Medicare annual wellness visit, initial: Code(s): Z00.00 - Encounter for general adult medical examination without abnormal findings Plan: Patient is advised to eat healthy, keep well hydrated, keep active and have adequate sleep. (2) Type 2 diabetes mellitus with hyperglycemia: Comment: Dr. Burgos Code(s): E11.65 - Type 2 diabetes mellitus with hyperglycemia Plan: Decrease the amount of carbohydrate intake, pasta, bread, rice and potatoes are all sugar and that is aside from all the sweet stuff, remember that fruits are good but they are Sweet also. Hemoglobin A1c goal of less than 6.5 on metformin a 1000 mg twice a day and Januvia 100 mg once a day (3) Subclinical hypothyroidism: Code(s): E03.9 - Hypothyroidism, unspecified Plan: Continue to monitor blood work (4) Obesity (BMI 30-39.9): Code(s): E66.9 - Obesity, unspecified Plan: Diet and exercise (5) Dyslipidemia: Code(s): E78.5 - Hyperlipidemia, unspecified Plan: Avoid fried foods, chicken skin, eggs, butter margarine, pastries and meat. Be it pork or beef they have a lot of cholesterol LDL goal of less than 70 and triglyceride of less than 150 on rosuvastatin 40 mg once a day (6) CAD (coronary artery disease): Code(s): I25.10 - Atherosclerotic heart disease of [place] coronary artery without angina pectoris Plan: Control the cholesterol, weight, blood pressure, diabetes on aspirin 81 mg once a day (7) CHF (congestive heart failure): Code(s): I50.9 - Heart failure, unspecified Plan: Weigh daily continue with carvedilol and Entresto (8) Ischemic cardiomyopathy: Code(s): I25.5 - Ischemic cardiomyopathy Plan: Continue with Entresto (9) History of implantable cardiac defibrillator (ICD): Comment: 08/22/2015 Code(s): Z95.810 - Presence of automatic (implantable) cardiac defibrillator Plan: Continues to follow up with Cardiology (10) Tubular adenoma of colon: Code(s): D12.6 - Benign neoplasm of colon, unspecified Plan: Patient is reminded about colonoscopy Plan History of Present Illness The patient is a 69-year-old obese male presenting for an annual well visit. His past medical history is significant for hypertension, hypercholesterolemia, hypothyroidism, coronary artery disease, diabetes mellitus, cardiomyopathy with congestive heart failure status post ICD placement, and sleep apnea diagnosed via a sleep study in 2006. He has a history of a tubular adenoma found on a colonoscopy in 2017. He underwent a repeat colonoscopy on December 02, which revealed one benign polyp, and he is now on a 5-year surveillance schedule. His current medications include aspirin 81 mg, carvedilol 12.5 mg twice a day, Entresto 24/26 mg twice a day, metformin 1000 mg twice a day, Januvia 100 mg once a day, and rosuvastatin 40 mg. He has allergies to lisinopril and suc cinylcholine. Recent blood work from December 15 showed a normal blood count, electrolytes, magnesium, iron, and liver function. His creatinine was 1.25 with a GFR of 58, fasting blood sugar was 119 with a hemoglobin A1c of 6.5, LDL was 54, and triglycerides were 154. A low vitamin B12 level of 176 was noted, and he is starting a supplement. A urine test in July showed no proteinuria. 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 He reports using his other eye for vision. The patient reports being an active hiker and denies any recent falls or problems with unsteadiness. Health Maintenance The patient agreed to receive the pneumonia vaccine today. He was provided with healthcare proxy forms to complete and return. Follow-up is scheduled in 3 months for continued monitoring. Social History - Alcohol Use: The patient reports drinking alcohol about twice a week, with one drink per occasion. - Tobacco Use: He denies smoking. - Substance Use: He denies illicit substance use and reports occasional use of Tylenol PM for sleep. - Diet: He has reduced his meat intake. - Exercise: The patient is an active hiker and recently completed an 8-mile hike. - Functional Status: He denies any falls or unsteadiness. - Social Support: The patient reports he is in the process of a divorce and is shifting responsibilities to his older daughter. Review of Systems - Constitutional: Denies fevers. - Eyes: Reports history of retinal detachment and cataract in one eye with resultant poor vision. - Ears, Nose, Throat: Reports tinnitus. Denies problems with hearing or swallowing, and denies coughing with eating. - Cardiovascular: Denies chest pain, heaviness, or discomfort. - Respiratory: Denies waking up short of breath. - Gastrointestinal: Reports good bowel movements. Denies heartburn, nausea, and vomiting. - Genitourinary: Reports nocturia once per night. Denies other urinary problems. - Neurological: Denies dizziness or syncope. - Musculoskeletal: Denies falls or unsteadiness. - Integumentary: Reports history of a ganglion cyst on his back. Physical Exam General: Cooperative, healthy appearing, comfortable, no acute distress and well developed Orientation: Patient oriented x3 Limitations: No limitations Head: Normal to inspection Ears: Hearing grossly normal bilaterally, patient reports tinnitus Nose: Normal external nose present Face and sinus: Normal facial exam Eyes: Appearance normal, both eyes and all related structures; patient has cataract in one eye and a history of detached retina with an oil bubble present Neck: Normal visual inspection and Yes full ROM Respiratory: Normal respiratory effort and able to speak in complete sentences. Clear to auscultation bilaterally Cardiovascular: Regular rate and rhythm. Normal S1 and S2 GI: Normal to inspection. Soft to palpation and nontender Skin: No rashes or lesions noted; scar noted on upper back from previous ganglion cyst removal Neuro: Patient oriented x3 Extremities: Normal to inspection; no pain or issues noted during examination Results - Lab Results (12/15): - Blood count: Normal - Electrolytes: Normal - Creatinine: 1.25 - Glomerular Filtration Rate (GFR): 58 - Fasting blood sugar: 119 - Hemoglobin A1c: 6.5% - Magnesium: Normal - Iron: Normal - Liver function tests: Normal - LDL cholesterol: 54 - Triglycerides: 154 - Vitamin B12: 176 - Other Diagnostics: - Urinalysis (July): No proteinuria - Sleep Study (2006): Positive for sleep apnea - Colonoscopy (12/02): Showed one benign tubular adenoma Plan Patient was informed and verbally consented to the use of an ambient scribe for clinic note documentation during this visit. 1. Diabetes Mellitus The patient's hemoglobin A1c is at the goal of 6.5%. He will continue taking metformin 1000 mg twice a day and Januvia 100 mg once a day, and continue with diet and exercise. 2. Hypercholesterolemia His LDL is at goal at 54, with a goal of less than 70. Triglycerides are slightly elevated at 154, with a goal of less than 150. He will continue rosuvastatin 40 mg once a day. 3. Coronary Artery Disease And Cardiomyopathy The patient will continue his regimen of aspirin 81 mg once a day, carvedilol, and Entresto. He was advised to weigh himself daily and continue following up with cardiology. 4. Hypothyroidism He will continue his current thyroid medication. 5. Vitamin B12 Deficiency His vitamin B12 level was low at 176, with a goal of over 300. He was counseled on the causes, including reduced meat intake. He will start a vitamin B12 1000 mg supplement once daily in the morning. 6. Chronic Kidney Disease His GFR is 58, which is borderline normal. The patient was advised to maintain adequate fluid intake and avoid NSAIDs like ibuprofen and Aleve. 7. History Of Colonic Tubular Adenoma The patient was reminded about his need for continued surveillance following the discovery of a benign tubular adenoma on his recent colonoscopy. He is scheduled for a repeat colonoscopy in 5 years. Discussion Notes I reviewed the patient's recent lab work with him in detail. I explained that his hemoglobin A1c of 6.5% is at goal, and his LDL of 54 is excellent. I noted his triglycerides were slightly elevated at 154, but not high enough to warrant additional treatment at this time. We discussed his kidney function, noting his GFR of 58 is borderline low, and I emphasized the importance of staying hydrated and avoiding NSAID medications like ibuprofen and Aleve, confirming that Tylenol is a safe alternative. I explained his new diagnosis of vitamin B12 deficiency, discussing potential causes including decreased meat intake and the complex absorption process, and prescribed a daily supplement. I recommended a pneumonia vaccine, as he is overdue, and he agreed to receive it today. I also provided him with healthcare proxy forms to complete. We agreed on a follow-up appointment in 3 months for closer monitoring, with labs to be drawn at that time. Patient Instructions - Continue taking all your current medications as prescribed, including those for heart health, diabetes, cholesterol, and thyroid. - Start taking the new Vitamin B12 1000 mg supplement once every day, preferably in the morning. - Continue to weigh yourself daily. - Maintain a healthy diet and stay active with exercise like hiking. - To protect your kidneys, make sure to drink plenty of fluids and avoid pain medications like ibuprofen (Advil, Motrin) and naproxen (Aleve). You can safely use Tylenol (acetaminophen) if needed. - You will receive a pneumonia vaccination during this visit. - Please ask your eye doctor to send us the notes from your yearly eye exams. - Your next colonoscopy should be in 5 years. - Please complete the healthcare proxy forms we gave you and bring a copy to the office. - Schedule a follow-up appointment in 3 months. Orders: Orders Pneumococcal 20 Immunization Today Z23 - Encounter for immunization Quality Reporting (2020) Depression/Bipolar (159/160/161/177) PHQ-9: Total score: 0 Coding Level of Care Code Medicare Subsequent (G0439) Diagnoses Medicare annual wellness visit, initial Z00.00 Type 2 diabetes mellitus with hyperglycemia E11.65 Subclinical hypothyroidism E03.9 Obesity (BMI 30-39.9) E66.9 Dyslipidemia E78.5 CAD (coronary artery disease) I25.10 CHF (congestive heart failure) I50.9 Ischemic cardiomyopathy I25.5 History of implantable cardiac defibrillator (ICD) Z95.810 Tubular adenoma of colon D12.6 Additional Codes PHQ-9 - 75803 - PHQ-9 Billing: Yes ([id number])
== END 2024-12-20 14:45 | disposition home or self-care (01) ==
LOC: HO.HMCH 13:43
PROVIDERS: PCP Internal Medicine; Visit Provider Internal Medicine
DX: Z00.00 Encounter for general adult medical examination without abnormal findings (principal); E11.65 Type 2 diabetes mellitus with hyperglycemia; I50.9 Heart failure, unspecified; E66.9 Obesity, unspecified; Z68.34 Body mass index [BMI] 34.0-34.9, adult; E03.9 Hypothyroidism, unspecified; E78.5 Hyperlipidemia, unspecified; I25.10 Atherosclerotic heart disease of native coronary artery without angina pectoris; I25.5 Ischemic cardiomyopathy; Z95.810 Presence of automatic (implantable) cardiac defibrillator; D12.6 Benign neoplasm of colon, unspecified; Z23 Encounter for immunization

== ENCOUNTER → 2024-12-20 13:42 | Outpatient (BNVA) | payer MEDICARE, OTHER, SELFPAY | PROVIDERS: PCP Internal Medicine; Visit Provider Internal Medicine | DX: Z23 Encounter for immunization (principal); Z13.31 Encounter for screening for depression | CPT/HCPCS: 90471; 90677; 96127 ==